=== PATIENT | female | born 1945 | race Caucasian/White ===

== ENCOUNTER 2017-01-14 16:21 | Emergency (ER) | payer BC ==
[~2017-01-14] VITALS: Ht 167.6 cm; Wt 99.8 kg
[~2017-01-14 16:21] MED LIST: CITA20TA9 PO; CLB200 PO; METO25TA56 PO; MULT-506 PO; PRLSR20 PO; SYN100 PO; TRIA3AER NAE
[2017-01-14 16:30] VITALS: Ht 167.6 cm; Wt 99.8 kg
[2017-01-14] MEDS ORDERED: BUPR75TA20 PO (16:34)
[2017-01-14] MEDS ORDERED: FLUT0.15 NAE (16:34)
[2017-01-14] MEDS ORDERED: OMEP20TA74 PO (16:34)
[2017-01-14] MEDS ORDERED: SYN100 PO (16:34)
[2017-01-14] MEDS ORDERED: CRS/10 PO (16:34)
[2017-01-14] MEDS ORDERED: CLB200 PO (16:34)
[2017-01-14] MEDS ORDERED: GABAPENTIN PO (16:36)
[2017-01-14] MEDS ORDERED: ACETAMINOPHEN 500 MG TAB PO STA (16:58)
[2017-01-14] MEDS ORDERED: ACETAMINOPHEN 500 MG TAB PO ONE (17:11)
--- NOTE | 2017-01-14 18:13 | DIAGNOSTIC IMAGING REPORT ---
RIGHT ELBOW MIN 3 VIEWS ROUTINE, RIGHT FOREARM 2 VIEWS ROUTINE CLINICAL HISTORY: fall, right elbow pain Right. Right forearm pain. COMPARISON STUDY: None. FINDINGS: Slightly impacted fracture within the right radial head/neck. There is an associated elbow effusion. The distal radius and ulna are intact. No dislocation. IMPRESSION: Slightly impacted fracture within the right radial head/neck. Electronically signed by: Monico Jiménez M.D. 01/14/2017 6:11 PM Dictated Date/Time: 01/14/2017 6:09 PM
--- NOTE | 2017-01-14 18:13 | DIAGNOSTIC IMAGING REPORT ---
LEFT FOREARM 2 VIEWS ROUTINE CLINICAL HISTORY: left forearm pain, fall COMPARISON: None FINDINGS: Lateral view demonstrates evidence of a left elbow joint effusion. There is cortical irregularity of the left radial neck suggestive of a nondisplaced fracture. IMPRESSION: Acute nondisplaced left radial neck fracture and a left elbow joint effusion. Electronically signed by: Mookie Brandt M.D. 01/14/2017 6:12 PM Dictated Date/Time: 01/14/2017 6:10 PM
--- NOTE | 2017-01-14 18:48 | DIAGNOSTIC IMAGING REPORT ---
HEAD CT NONCONTRAST CT DOSE: HISTORY: fall, head/facial injury TECHNIQUE: Multiaxial CT images of the head were performed without the use of intravenous contrast. Automated exposure control was utilized for this study. A dose lowering technique was utilized adhering to the principles of ALARA. Comparison: None. Findings: The paranasal sinuses and mastoid air cells are clear. The calvarium and skull base are intact. The ventricles and sulci are within normal limits. There is no mass, hematoma, midline shift, or acute infarct. 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 Impression: No acute intracranial abnormality. Electronically signed by: Monico Jiménez M.D. 01/14/2017 6:47 PM Dictated Date/Time: 01/14/2017 6:42 PM
--- NOTE | 2017-01-14 18:52 | DIAGNOSTIC IMAGING REPORT ---
MAXILLOFACIAL CT WITHOUT CONTRAST CLINICAL HISTORY: fall, head/facial injury COMPARISON STUDY: None. TECHNIQUE: A maxillofacial CT was performed without IV contrast. Coronal and sagittal reformats were viewed. A dose lowering technique was utilized adhering to the principles of ALARA. FINDINGS: This exam is mildly compromised by motion artifact. There is suspected nasal soft tissue swelling. Sensitivity for detection of fractures is diminished given motion artifact. There is a probable nondisplaced left nasal bone fracture with possible nondisplaced fractures of the right nasal bone and nasal septum. Orbital floors are intact. Globes are intact. There is no retrobulbar hematoma. Alignment of the temporomandibular joints is anatomic. IMPRESSION: Probable acute nondisplaced bilateral nasal bone fractures and possible nondisplaced fracture of the nasal septum. Study mildly compromised by motion artifact. No additional facial fractures. Electronically signed by: Mookie Brandt M.D. 01/14/2017 6:50 PM Dictated Date/Time: 01/14/2017 6:42 PM
--- NOTE | 2017-01-14 19:38 | EMERGENCY ROOM VISIT NOTE ---
History First contact with patient: 16:33 Chief Complaint: FALL Stated Complaint: FALL/WRIST PAIN History of Present Illness The patient is a 71 year old female who presents to the Emergency Room with complaints of a fall which occurred just prior to arrival. The patient states that she tripped while wearing flip-flops and fell forward. She hit her nose and caught herself with her arms. She reports pain in both of her wrists/ forearms. She had a nose bleed initially but this has resolved. She rates her discomfort a 6/10. There was no loss of consciousness. She denies nausea/ vomiting. The fall was mechanical in nature and she denies any associated dizziness or lightheadedness. Review of Systems A complete 10 point review of systems was reviewed with the patient with pertinent positives and negatives as per history of present illness. All else were negative. Social History Smoking Status: Former Smoker Current/Historical Medications Scheduled Bupropion (Wellbutrin), 75 MG PO BID Celecoxib (Celebrex), 200 MG PO QAM Citalopram Hydrobromide (Celexa), 20 MG PO DAILY Fluticasone Propionate (Nasal) (Flonase Allergy Relief), 2 SPRAY [place] DAILY Levothyroxine Sodium (Synthroid), 100 MCG PO QAM Multivitamin (Multivitamin), 1 TAB PO DAILY Omeprazole (Ra Omeprazole), 20 MG PO QAM Rosuvastatin Calcium (Crestor), 10 MG PO 3XWK [Gabapentin], 1 CAP PO HS Physical Exam Vital Signs Date Time Temp Pulse Resp B/P (MAP) Pulse Ox O2 Delivery O2 Flow Rate FiO2 01/14/17 19:51 37.0 77 18 131/68 96 01/14/17 19:49 77 18 131/68 96 Room Air 01/14/17 16:30 37.0 77 18 96 Room Air Physical Exam VITALS: Vitals are noted on the nurse's note and reviewed by myself. Vital signs stable. GENERAL: This is a 71-year-old female, in no acute distress, nondiaphoretic, well-developed well-nourished. SKIN: There is a small abrasion to the bridge of the nose. HEAD: Normocephalic atraumatic. EARS: External auditory canals clear, tympanic membranes pearly dickinson without erythema or effusion bilaterally. No hemotympanum. EYES: Pupils equal round and reactive to light and accommodation. Conjunctivae without injection, sclerae without icterus. Extraocular movements intact. NOSE: No bleeding from the nares. MOUTH: Mucous membranes moist. No loose or chipped teeth. NECK: Supple without nuchal rigidity. Cervical spine is nontender. HEART: Regular rate and rhythm without murmurs gallops or rubs. LUNGS: Clear to auscultation bilaterally without wheezes, rales or rhonchi. MUSCULOSKELETAL: There is tenderness of bilateral forearms, right greater than left. Full range of motion of bilateral upper extremities. Radial pulses 2+. No obvious deformities. NEURO: Patient was alert and oriented to person place and time. Normal sensation to light and sharp touch. No focal neurological deficits. Medical Decision & Procedures ER Provider Diagnostic Interpretation: HEAD CT NONCONTRAST Impression: No acute intracranial abnormality. MAXILLOFACIAL CT WITHOUT CONTRAST IMPRESSION: Probable acute nondisplaced bilateral nasal bone fractures and possible nondisplaced fracture of the nasal septum. Study mildly compromised by motion artifact. No additional facial fractures. LEFT FOREARM 2 VIEWS ROUTINE IMPRESSION: Acute nondisplaced left radial neck fracture and a left elbow joint effusion. RIGHT ELBOW MIN 3 VIEWS ROUTINE, RIGHT FOREARM 2 VIEWS ROUTINE IMPRESSION: Slightly impacted fracture within the right radial head/neck. Medications Administered Medications (Trade) Dose Ordered Sig/Ever Route Start Time Stop Time Status Last Admin Dose Admin Acetaminophen (Tylenol Tab) 1,000 mg NOW STAT PO 01/14/17 16:58 01/14/17 17:01 DC 01/14/17 17:14 1,000 MG ED Course The patient was evaluated as above. Patient was medicated with 1 g Tylenol. Imaging studies were performed and read by radiology as above. Patient was reevaluated and findings were discussed. The patient prefers to be discharged home. Discharge instructions were reviewed with the patient. The patient verbalized understanding of my assessment and treatment plan and was discharged home in good condition. Medical Decision Differential diagnosis includes head injury, fracture, contusion, dislocation, among others. The patient was evaluated as above. She sustained a mechanical fall. CT of the head was unremarkable. CT of the facial bones showed probable nasal bone fractures. Patient was instructed to follow-up with plastic surgery as desired. X-rays showed bilateral radial head/neck fractures. Options of care were discussed with the patient including discharged home in bilateral slings or admission for placement in a rehabilitation facility. The patient much prefers to be discharged home and states that her daughter can help her perform ADLs. She has tramadol at home and declined anything stronger for pain. She was referred to orthopedics for follow-up. She verbalized understanding of my assessment and treatment plan and was discharged home in good condition. The patient was independently evaluated by Dr. Ely, ED attending physician , who agreed with my assessment and treatment plan. Head Trauma GCS Score: 15 Medication Reconcilliation Current Medication List: was personally reviewed by me Blood Pressure Screening Patient's blood pressure: Elevated blood pressure Blood pressure disposition: Elevated BP felt to be situational Impression Primary Impression: Radial head fracture Additional Impressions: Nasal bone fracture Fall Departure Information Dispostion Home / Self-Care Condition GOOD Referrals Kamron Arciniega D.O. (PCP) Edi Holland M.D. Patient Instructions My [facility] Additional Instructions You have been treated in the Emergency Department for fractures of both radial heads. Tramadol as needed for pain. For pain control, you can use the following [id number] medicines (if >12 yo): - Regular strength (325mg/tab) Tylenol (acetaminophen) 2 tabs every 4-6 hours as needed. Do not exceed 12 tablets in a 24 hour period. Avoid taking more than 4 grams (4000 mg) of Tylenol per day. This includes any other sources of acetaminophen you may take on a regular basis. If this is a recent injury (<24 hrs), ice can be applied to the area of pain for the first 3 days to help decrease pain and inflammation. You have been provided the number for an Orthopaedic Surgeon. You should call this number as soon as possible to establish a follow-up visit from today's Emergency Department visit. Wear the sling at home as needed for pain. You may remove these as needed to shower, go to the bathroom, etc. If you notice any deformity of the nose, he may follow up with plastic surgery as desired. Return to the Emergency Department if your current symptoms worsen despite treatment course outlined above, or if you develop any of the following symptoms : intractable pain despite aforementioned treatment course or new onset of numbness or tingling of the arm. Problem Qualifiers Primary Impression: Radial head fracture Encounter type: initial encounter Fracture type: closed Fracture alignment : nondisplaced Additional Impressions: Nasal bone fracture Encounter type: initial encounter Fracture type: closed Qualified Codes: S02.2XXA - Fracture of nasal bones, initial encounter for closed fracture Fall Encounter type: initial encounter Qualified Codes: W19.XXXA - Unspecified fall, initial encounter
[2017-01-14 19:51] VITALS: BP 131/68; PULSE 77; TEMP 37; O2SAT 96
--- NOTE | 2017-01-14 20:13 | EMERGENCY ROOM VISIT NOTE ---
ED Visit Note First contact with patient: 16:33 I have seen and examined the patient. Discussed results and plan with the pt and family and they are agreeable. Pt well appearing here despite injuries.
== END 2017-01-14 19:51 | disposition home or self-care (01) ==
LOC: EDBD 16:21 → C.EDB 16:22
DX: S52.125A Nondisplaced fracture of head of left radius, initial encounter for closed fracture (principal); S52.121A Displaced fracture of head of right radius, initial encounter for closed fracture; S02.2XXA Fracture of nasal bones, initial encounter for closed fracture; W18.09XA Striking against other object with subsequent fall, initial encounter; Z87.891 Personal history of nicotine dependence; Z79.899 Other long term (current) drug therapy

== ENCOUNTER → 2017-06-11 | Outpatient (CLI) | payer BC ==
[~2017-06-11] MED LIST changes: +BUPR75TA20 PO; +CRS/10 PO; +FLUT0.15 NAE; +GABAPENTIN PO; -METO25TA56 PO; +OMEP20TA74 PO; -PRLSR20 PO; -TRIA3AER NAE
== END | disposition home or self-care (01) ==
LOC: C.PATHSPEC 17:42
PROVIDERS: ATTEND Plastic Surgery
DX: L72.2 Steatocystoma multiplex (principal)

== ENCOUNTER 2021-08-19 19:01 | Inpatient (IN) ==
[2021-08-19] MEDS ORDERED: cefTRIAXone SODIUM 2,000 MG/70 ML BAG IV STA (19:18)
--- NOTE | 2021-08-19 19:21 | Emergency Department Note ---
Impression & Plan Weakness, Fever, Acute dehydration, Acute UTI, Failure of outpatient treatment ED Provider Note NAME: HERON PERRY AGE: 76 SEX: F : 1945 ARRIVES VIA: Ambulance INFORMANT: [Patient] ED PROVIDER(S): [Kirit Bee MD] CHIEF COMPLAINT: Urinary symptoms, fever HISTORY OF PRESENT ILLNESS: The patient is a 76-year-old female with head and neck cancer. She was at [facility] recently for chemotherapy and radiation. Last chemo was about a month ago. She arrived back in this area and is currently at [facility]. On , 3 days ago, the patient began noticing some chills and aches. She felt flulike. Urine test was done and her culture has grown E. coli--sensitivities have not returned. She has had 2 days of Levaquin. Despite the antibiotics, she feels the same and is still running a temperature. There has been no cough or chest pain or shortness of breath. No abdominal pain. She has not had a rash. The patient was sent here for the possibility of sepsis. REVIEW OF SYSTEMS: See HPI for pertinent positives and negatives. A total of ten systems were reviewed and were otherwise negative. PMHx/PSHx: See Below SOCIAL HISTORY: See Below. PHYSICAL EXAM: GENERAL: Patient is in no acute distress. HEENT: No acute trauma, normocephalic atraumatic, mucous membranes moist, no nasal congestion, no scleral icterus. NECK: No stridor, no adenopathy, no meningismus, trachea is midline. LUNGS: Clear to auscultation bilaterally, no wheeze, no rhonchi, breath sounds equal. HEART: Without murmurs gallops or rubs, regular rate and rhythm. ABDOMEN: Soft, nontender, bowel sounds positive, no hernias, no peritonitis. There is a feeding tube in the left upper quadrant. EXTREMITIES: No cyanosis, mild bilateral pedal edema, full range of motion of all the joints without pain or difficulty, no signs for acute trauma. NEUROLOGIC: Oriented x 3, no acute motor or sensory deficits, no focal weakness. SKIN: No rash, no jaundice, no diaphoresis. DIFFERENTIAL DIAGNOSIS: Sepsis, UTI, pneumonia, metabolic abnormality, electrolyte abnormalities, cardiac sources, cellulitis, bacteremia, intracerebral event, toxicologic etiology, neurologic event, as well as other pathologies. EMERGENCY DEPARTMENT COURSE/PROCEDURES: ECG: Indication was possible sepsis. The ECG shows a normal sinus rhythm with a rate of 93. There is no ST elevation, no PVCs. The QTc is 420. Continuous Cardiac Monitoring: An order was placed for continuous cardiac monitoring. The monitor shows a rate of 88 with normal sinus rhythm. Critical Care Note: I have personally spent 43 minutes of critical care time in the direct management of this patient. This includes bedside care, interpretation of diagnostic studies, and testing, discussion with consultants, patient, and family members, and other required patient management activities. This 43 minutes is in excess of all separately billable procedures. MEDICAL DECISION MAKING: There is no leukocytosis. The patient is somewhat anemic, this may be from her recent chemotherapy. There is a platelet count elevation at 600. No coagulopathy. No renal failure or significant electrolyte abnormality. Lactic acid level is not elevated making severe sepsis less likely. ECG shows a normal sinus rhythm, no ischemia. Cardiac enzyme testing x1 is not consistent with acute cardiac injury. Procalcitonin level is not elevated. Urinalysis appears clean. Influenza and Covid testing is negative. Chest x-ray does not show pneumonia or CHF. I was able to review the patient's recent laboratory tests, her urine culture has grown E. coli without sensitivities available. The patient has a history of head and neck cancer. She was recently discharged from [place] after chemo and radiation. She now has fever, flulike symptoms and has E. coli growing on her urine. She has had 2 days of Levaquin with no improvement. The patient received IV saline for hydration. She was given oral oxycodone for pain. She received IV ceftriaxone as antibiotic coverage. Patient has done poorly as an outpatient. I think she is failing outpatient management. I am concerned about a pyelonephritis as the cause for her fever and complaints. The patient is being hospitalized, I spoke with the patient and her daughter, I spoke with the pillowcase maker. The on-call hospitalist was consulted. Past Med/Surg History Medical History Carcinoma Radial head fracture Surgical History History of appendectomy History of section History of cholecystectomy History of spinal fusion L4-5 History of tonsillectomy Family History (Updated 11/12/21 @ 13:57 by Carina Mg) Mother Hearing loss Allergies Asthma Father Stroke Heart disease Grandmother (Maternal) Allergies Asthma Daughter Allergies Asthma Other No family history of adverse response to anesthesia No family history of bleeding disorder Social History Smoking Status: Never smoker Years Smoked: 15; Cigarettes Per Day: 1-2; Hx Alcohol Use: No Hx Substance Use: No Preferred Language: Panamanian marital status: Single current occupational status: retired Feels Safe at Home: Yes Allergies Allergies Allergy/AdvReac Type Severity Reaction Status Date / Time morphine Allergy Mild Verified 08/19/21 21:20 Iodinated Contrast Media Allergy Unknown CONTRAST Verified 08/19/21 21:20 ALLERGY Penicillins Allergy Unknown Verified 08/19/21 21:20 shellfish derived Allergy Unknown DIGESTIVE Unverified 08/19/21 21:20 ISSUES Sulfa (Sulfonamide Allergy Unknown Verified 08/19/21 21:20 Antibiotics) NSAIDS (Non-Steroidal AdvReac Unknown Could lead Unverified 08/19/21 21:21 Anti-Inflamma to bleeding with past surgical history STEROIDS Allergy Unknown PVC'S Uncoded 08/19/21 21:20 Home Meds Home Medications Medication Instructions Recorded Confirmed bupropion HCl 100 mg tablet,12 hr 100 mg PO QAM 04/06/21 08/19/21 sustained-release (Wellbutrin SR) gabapentin 100 mg capsule 100 mg PO QAM 04/06/21 08/19/21 (Neurontin) levothyroxine 100 mcg tablet 100 mcg PO QAM 04/06/21 08/19/21 (Synthroid) omeprazole 20 mg capsule,delayed 20 mg PO PM 04/06/21 08/19/21 release rosuvastatin 5 mg tablet (Crestor) 5 mg PO 3XWK 04/06/21 08/19/21 acetaminophen 500 mg tablet 500 mg PO Q6H PRN 08/19/21 08/19/21 (Tylenol Extra Strength) cholecalciferol (vitamin D3) 50 50 mcg PO QAM 08/19/21 08/19/21 mcg (2,000 unit) tablet (Vitamin D3) fluticasone propionate 50 2 spray INTRANASAL QAM 08/19/21 08/19/21 mcg/actuation nasal spray,suspension oxycodone 5 mg tablet 5 mg PO DIRECTED PRN 08/19/21 08/19/21 Results & Data (ED) Vital Signs Vital Signs - 24 hr 08/19/21 19:17 Temperature 36.7 C Temperature Source Oral Pulse Rate 87 Respiratory Rate 16 Respiratory Effort / Characteristics Non-Labored Spontaneous Respiratory Depth Normal Respiratory Pattern Regular Blood Pressure 111/73 Blood Pressure Mean 85 Blood Pressure Position Semi-fowlers Pulse Oximetry 98 Oxygen Delivery Method Room Air Sepsis Recent Fever Within 48 Hours Yes Sepsis New/Unexplained Change in Mental Status N/A Sepsis Action Taken by Nursing No Action Required Home Medications Current Medication List: was personally reviewed by me Laboratory Data Attestation: I reviewed the patient's lab results. Result diagrams: 08/19/21 19:24 08/19/21 19:24 Lab Results 08/19/21 08/19/21 08/19/21 Range/Units 19:19 19:24 19:24 WBC 8.68 (4.8-10.8) K/uL RBC 3.37 L (4.2-5.4) M/uL Hgb 10.4 L (12.0-16.0) g/dL Hct 33.6 L (37-47) % MCV 99.7 (80-100) fL MCH 30.9 (25-34) pg MCHC 31.0 L (32-36) g/dL RDW Std Deviation 65.7 H (36.4-46.3) fL RDW Coeff of Geri 18.4 H (11.5-14.5) % Plt Count 606 H (130-400) K/uL MPV 9.2 (7.4-10.4) fL Immature Gran % (Auto) 2.3 % Neut % (Auto) 78.1 % Lymph % (Auto) 12.4 % [place] % (Auto) 4.5 % Eos % (Auto) 1.8 % Baso % (Auto) 0.9 % Neut # (Auto) 6.77 H (1.4-6.5) K/uL Lymph # (Auto) 1.08 L (1.2-3.4) K/uL [place] # (Auto) 0.39 (0.11-0.59) K/uL Eos # (Auto) 0.16 (0-0.5) K/uL Baso # (Auto) 0.08 (0-0.2) K/uL Immature Gran # (Auto) 0.20 H (0.00-0.02) K/uL PT 10.2 (9.0-12.0) Seconds INR 1.0 (0.9-1.1) APTT 23.7 (21.0-31.0) Seconds PTT Ratio 0.9 Sodium (136-145) mmol/L Potassium (3.5-5.1) mmol/L Chloride (98-107) mmol/L Carbon Dioxide (21-32) mmol/L Anion Gap (3-11) BUN (6-23) mg/dl Creatinine (0.6-1.2) mg/dl Est Cr Clr Drug Dosing Est GFR ( Amer) ml/min Est GFR (Non-Af Amer) ml/min BUN/Creatinine Ratio (10-20) Glucose (70-99(Fasting)) mg/dl POC Glucose 92 (70-99) mg/dl Lactate (0.4-2.0) mmol/L Calcium (8.5-10.1) mg/dl Magnesium (1.7-2.4) mg/dl Total Bilirubin (0.2-1.0) mg/dl AST (13-39) U/L ALT (7-52) U/L Alkaline Phosphatase (34-104) U/L Troponin I (0-0.04) ng/ml Total Protein (6.0-8.3) gm/dl Albumin (3.4-5.0) gm/dl Globulin (2.5-4.0) gm/dl Albumin/Globulin Ratio (0.9-2) Procalcitonin (0-0.5) ng/ml Urine Color Urine Appearance (Clear) Urine pH (4.5-7.5) Ur Specific [place] (1.000-1.030) Urine Protein (Negative) Urine Glucose (UA) (Negative) Urine Ketones (Negative) Urine Blood (Negative) Urine Nitrite (Negative) Urine Bilirubin (Negative) Urine Urobilinogen (Negative) Ur Leukocyte Esterase (Negative) Influ A Molecular Assay (Negative) Influ B Molecular Assay (Negative) SARS-CoV-2, RNA, NAAT (NEGATIVE) 08/19/21 08/19/21 08/19/21 Range/Units 19:24 19:24 19:24 WBC (4.8-10.8) K/uL RBC (4.2-5.4) M/uL Hgb (12.0-16.0) g/dL Hct (37-47) % MCV (80-100) fL MCH (25-34) pg MCHC (32-36) g/dL RDW Std Deviation (36.4-46.3) fL RDW Coeff of Geri (11.5-14.5) % Plt Count (130-400) K/uL MPV (7.4-10.4) fL Immature Gran % (Auto) % Neut % (Auto) % Lymph % (Auto) % [place] % (Auto) % Eos % (Auto) % Baso % (Auto) % Neut # (Auto) (1.4-6.5) K/uL Lymph # (Auto) (1.2-3.4) K/uL [place] # (Auto) (0.11-0.59) K/uL Eos # (Auto) (0-0.5) K/uL Baso # (Auto) (0-0.2) K/uL Immature Gran # (Auto) (0.00-0.02) K/uL PT (9.0-12.0) Seconds INR (0.9-1.1) APTT (21.0-31.0) Seconds PTT Ratio Sodium 137 (136-145) mmol/L Potassium 4.5 D (3.5-5.1) mmol/L Chloride 103 (98-107) mmol/L Carbon Dioxide 25 (21-32) mmol/L Anion Gap 9 (3-11) BUN 28 H (6-23) mg/dl Creatinine 0.50 L (0.6-1.2) mg/dl Est Cr Clr Drug Dosing Not Reportable Est GFR ( Amer) 108.2 ml/min Est GFR (Non-Af Amer) 93.4 ml/min BUN/Creatinine Ratio 56.0 H (10-20) Glucose 95 (70-99(Fasting)) mg/dl POC Glucose (70-99) mg/dl Lactate 1.3 (0.4-2.0) mmol/L Calcium 9.2 (8.5-10.1) mg/dl Magnesium 1.8 (1.7-2.4) mg/dl Total Bilirubin 0.2 (0.2-1.0) mg/dl AST 14 (13-39) U/L ALT 12 (7-52) U/L Alkaline Phosphatase 80 (34-104) U/L Troponin I < 0.03 (0-0.04) ng/ml Total Protein 7.0 (6.0-8.3) gm/dl Albumin 3.5 (3.4-5.0) gm/dl Globulin 3.5 (2.5-4.0) gm/dl Albumin/Globulin Ratio 1.0 (0.9-2) Procalcitonin < 0.05 (0-0.5) ng/ml Urine Color Urine Appearance (Clear) Urine pH (4.5-7.5) Ur Specific [place] (1.000-1.030) Urine Protein (Negative) Urine Glucose (UA) (Negative) Urine Ketones (Negative) Urine Blood (Negative) Urine Nitrite (Negative) Urine Bilirubin (Negative) Urine Urobilinogen (Negative) Ur Leukocyte Esterase (Negative) Influ A Molecular Assay (Negative) Influ B Molecular Assay (Negative) SARS-CoV-2, RNA, NAAT (NEGATIVE) 08/19/21 08/19/21 08/19/21 Range/Units 20:21 20:21 20:21 WBC (4.8-10.8) K/uL RBC (4.2-5.4) M/uL Hgb (12.0-16.0) g/dL Hct (37-47) % MCV (80-100) fL MCH (25-34) pg MCHC (32-36) g/dL RDW Std Deviation (36.4-46.3) fL RDW Coeff of Geri (11.5-14.5) % Plt Count (130-400) K/uL MPV (7.4-10.4) fL Immature Gran % (Auto) % Neut % (Auto) % Lymph % (Auto) % [place] % (Auto) % Eos % (Auto) % Baso % (Auto) % Neut # (Auto) (1.4-6.5) K/uL Lymph # (Auto) (1.2-3.4) K/uL [place] # (Auto) (0.11-0.59) K/uL Eos # (Auto) (0-0.5) K/uL Baso # (Auto) (0-0.2) K/uL Immature Gran # (Auto) (0.00-0.02) K/uL PT (9.0-12.0) Seconds INR (0.9-1.1) APTT (21.0-31.0) Seconds PTT Ratio Sodium (136-145) mmol/L Potassium (3.5-5.1) mmol/L Chloride (98-107) mmol/L Carbon Dioxide (21-32) mmol/L Anion Gap (3-11) BUN (6-23) mg/dl Creatinine (0.6-1.2) mg/dl Est Cr Clr Drug Dosing Est GFR ( Amer) ml/min Est GFR (Non-Af Amer) ml/min BUN/Creatinine Ratio (10-20) Glucose (70-99(Fasting)) mg/dl POC Glucose (70-99) mg/dl Lactate (0.4-2.0) mmol/L Calcium (8.5-10.1) mg/dl Magnesium (1.7-2.4) mg/dl Total Bilirubin (0.2-1.0) mg/dl AST (13-39) U/L ALT (7-52) U/L Alkaline Phosphatase (34-104) U/L Troponin I (0-0.04) ng/ml Total Protein (6.0-8.3) gm/dl Albumin (3.4-5.0) gm/dl Globulin (2.5-4.0) gm/dl Albumin/Globulin Ratio (0.9-2) Procalcitonin (0-0.5) ng/ml Urine Color Yellow Urine Appearance Clear (Clear) Urine pH 8.5 H (4.5-7.5) Ur Specific [place] 1.024 (1.000-1.030) Urine Protein Negative (Negative) Urine Glucose (UA) Negative (Negative) Urine Ketones Negative (Negative) Urine Blood Negative (Negative) Urine Nitrite Negative (Negative) Urine Bilirubin Negative (Negative) Urine Urobilinogen Negative (Negative) Ur Leukocyte Esterase Negative (Negative) Influ A Molecular Assay Negative (Negative) Influ B Molecular Assay Negative (Negative) SARS-CoV-2, RNA, NAAT NEGATIVE (NEGATIVE) Administered Medications Discontinued Medications Sodium Chloride (Nss 1000ml) 1,000 mls @ 999 mls/hr IV .[id number] Stop: 08/19/21 20:30 Last Infusion: 08/19/21 20:44 Dose: 0 mls/hr Documented by: [id number] Admin: 08/19/21 19:43 Dose: 999 mls/hr Documented by: [id number] Ceftriaxone Sodium (Rocephin) 2,000 mg in 70 mls @ 140 mls/hr IV NOW STA Stop: 08/19/21 19:47 Last Infusion: 08/19/21 20:13 Dose: 0 mls/hr Documented by: [id number] Admin: 08/19/21 19:43 Dose: 140 mls/hr Documented by: [id number] Oxycodone HCl (Oxycodone Hcl Ir 5 Mg Tab (Immediate Release)) 5 mg PO NOW STA Stop: 08/19/21 21:05 Last Admin: 08/19/21 21:22 Dose: 5 mg Documented by: [id number] Imaging Data Radiologist's Impression: Chest X-Ray 08/19/21 19:17 XR chest 1V portable CLINICAL HISTORY: SEPSIS TECHNIQUE: Single frontal radiograph of the chest was obtained. Comparison: None available at the time of this dictation. FINDINGS: Surgical clips are seen in the left lateral chest. A calcific densities in the left lower lung. The cardiomediastinal silhouette is normal. The lungs are clear. No evidence of pleural effusion or pneumothorax. IMPRESSION: No acute chest disease. ACT 112: Negative or not required by law. Electronically signed by: Asaf Maloney M.D. 08/19/2021 8:15 PM Discharge Plan Visit Data Chief Complaint: Urinary Symptoms Stated Complaint: Urinary Symptoms ED Provider: Kirit Bee Discharge Problem: Weakness, Fever, Acute dehydration, Acute UTI, Failure of outpatient treatment Patient Disposition: Admitted As Inpatient Condition: Fair Forms Stand Alone Forms: [employer] Prescriptions Prescriptions: No Action levothyroxine [Synthroid] 100 mcg tablet 100 mcg PO QAM RF: 0 omeprazole 20 mg capsule,delayed release(DR/EC) 20 mg PO PM RF: 0 gabapentin [Neurontin] 100 mg capsule 100 mg PO QAM RF: 0 rosuvastatin [Crestor] 5 mg tablet 5 mg PO 3XWK RF: 0 bupropion HCl [Wellbutrin SR] 100 mg tablet sustained-release 12 hr 100 mg PO QAM RF: 0 acetaminophen [Tylenol Extra Strength] 500 mg Tablet 500 mg PO Q6H PRN (Reason: Pain) RF: 0 oxycodone 5 mg tablet 5 mg PO DIRECTED PRN (Reason: Pain) RF: 0 cholecalciferol (vitamin D3) [Vitamin D3] 50 mcg (2,000 unit) Tablet 50 mcg PO QAM RF: 0 fluticasone propionate [Flonase] 50 mcg/actuation [place],Suspension 2 spray INTRANASAL QAM RF: 0 Referrals Referrals: Jonas Kan [Primary Care Provider] -
[2021-08-19] MEDS ORDERED: SODIUM CHLORIDE 0.9% 1000ML 1,000 ML IV SCH (19:30)
[2021-08-19 19:33] LABS: Basophils # (auto) 0.08 K/uL (0-0.2); Basophils % (auto) 0.9 %; Eosinophils # (auto) 0.16 K/uL (0-0.5); Eosinophils % (auto) 1.8 %; Hematocrit (blood only) 33.6 % (37-47); Hemoglobin 10.4 g/dL (12.0-16.0); Immature Granulocytes % (auto) 2.3 %; Lymphocytes # (auto) 1.08 K/uL (1.2-3.4); Lymphocytes % (auto) 12.4 %; Mean Corpuscular Hemoglobin 30.9 pg (25-34); Mean Corpuscular Volume 99.7 fL (80-100); Mean Platelet Volume 9.2 fL (7.4-10.4); Monocytes # (auto) 0.39 K/uL (0.11-0.59); Monocytes % (auto) 4.5 %; Neutrophils # (auto) 6.77 K/uL (1.4-6.5); Neutrophils % (auto) 78.1 %; Platelet Count 606 K/uL (130-400); RDW Coefficient of Variation 18.4 % (11.5-14.5); RDW Standard Deviation 65.7 fL (36.4-46.3); Red Blood Count 3.37 M/uL (4.2-5.4); White Blood Count 8.68 K/uL (4.8-10.8)
[2021-08-19 19:49] LABS: Partial Thromboplastin Ratio 0.9; Partial Thromboplastin Time 23.7 Seconds (21.0-31.0); Prothrombin Time 10.2 Seconds (9.0-12.0)
[2021-08-19 20:04] LABS: Alanine Aminotransferase 12 U/L (7-52); Albumin Level 3.5 gm/dl (3.4-5.0); Alkaline Phosphatase 80 U/L (34-104); Anion Gap 9 (3-11); Aspartate Aminotransferase 14 U/L (13-39); Bilirubin,Total 0.2 mg/dl (0.2-1.0); Blood Urea Nitrogen 28 mg/dl (6-23); Calcium 9.2 mg/dl (8.5-10.1); Carbon Dioxide 25 mmol/L (21-32); Chloride 103 mmol/L (98-107); Est GFR (African American) 108.2 ml/min; Est GFR (Non-African American) 93.4 ml/min; Globulin 3.5 gm/dl (2.5-4.0); Glucose 95 mg/dl (70-99(Fasting)); Magnesium 1.8 mg/dl (1.7-2.4); Potassium 4.5 mmol/L (3.5-5.1); Sodium 137 mmol/L (136-145); Troponin I < 0.03 ng/ml (0-0.04)
--- NOTE | 2021-08-19 20:16 | XRay Report ---
XR chest 1V portable CLINICAL HISTORY: SEPSIS TECHNIQUE: Single frontal radiograph of the chest was obtained. Comparison: None available at the time of this dictation. FINDINGS: Surgical clips are seen in the left lateral chest. A calcific densities in the left lower lung. The c ardiomediastinal silhouette is normal. The lungs are clear. No evidence of pleural effusion or pneumo thorax. IMPRESSION: No acute chest disease. ACT 112: Negative or not required by law. Electronically signed by: Asaf Maloney M.D. 08/19/2021 8:15 PM
[2021-08-19 20:46] LABS: Influenza A virus by PCR Negative (Negative); Influenza B virus by PCR Negative (Negative)
[2021-08-19 20:55] LABS: Appearance Urine Clear (Clear); Bilirubin Urine Negative (Negative); Blood Urine Negative (Negative); Color Urine Yellow; Glucose Urine UA Negative (Negative); Ketones Urine Negative (Negative); Leukocyte Esterase Urine Negative (Negative); Nitrite Urine Negative (Negative); Protein Urine Negative (Negative); Specific Gravity Urine 1.024 (1.000-1.030); Urobilinogen Urine Negative (Negative); pH Urine 8.5 (4.5-7.5)
[2021-08-19] MEDS ORDERED: oxyCODONE HCL IR 5 MG TAB (IMMEDIATE RELEASE) PO STA ×2 (21:04→21:55)
--- NOTE | 2021-08-19 22:02 | History & Physical Report ---
Date of Service August 19, 2021 Assessment & Plan (1) Acute UTI: Plan: Acute UTI with improving urine and no leukocytosis or fevers but remaining with symptoms and left CVA tenderness - Ultrasound of bladder and kidneys evaluate for abscess - E.COLI awaiting sensitivities- change Levaquin to Rocephin secondary to age and fluoroquinolone- adjust based on sensitivities - Follow symptoms (2) Tongue cancer: Plan: S/P chemo and radiation therapy with prolonged stay - follows with [facility] [place] (3) Pain: Plan: Back pain primarily - Will add on lidocaine patch - tylenol - oxy 10mg p0 prn - Gabapentin- have room to increase - Consider adding narcotic patch if needed - Of note patient had delirium as well as drug induced parkinsonian side effects from [facility] [place] (4) On enteral nutrition: Plan: On Jevity 1.5 2 cans TID as supplementation to oral intake - her oral intake has been decreased over the past few days- may need supplementation - nutrition consulted appreciate assistance - free water may need to be added if po intake remains low- currently 60ml tid and with meds (5) Weakness: Plan: Continue with PT/OT (6) HLD (hyperlipidemia): Plan: Continue with statin (7) Hypothyroidism: Plan: Continue Synthroid (8) Thrush, oral: Plan: Magic Mouthwash and continue with nystatin (9) GERD (gastroesophageal reflux disease): Plan: Continue omeprazole History of Present Illness Primary Care Provider: [facility] 76 YOF with past medical history of: 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 Patient comes to the EMD today for complaints of continued fatigue, back pain, fevers, chills in the setting of E.COLI UTI- awaiting sensitivities - started on Levaquin- received 1 dose. Patient is Resident of [facility]. Patient had routine labs sent to include PCT, UA, and blood cultures. Her urine is improved looking, and her PCT is <0.05, without objective fever- remains with symptoms and CVA tenderness of the left side. Patient will be observed for pyelo rule out- with ultrasound- and await sensitivities. The patient just returned from [facility] [place] where she was diagnosed with SCC of the tongue- underwent radiation and chemotherapy and dilation of her esophagus with PEG tube placement on 07/23. Radiation therapy was discontinued on 08/01 secondary to pain. Her oral intake remains low secondary to pain with swallowing and receives Jevity 1.5 - 2 cans TID bolus feeds. She is tolerating these without emesis but is associate with nausea and changes in her stools. She has some thrush and suffered from mucositis as well- symptoms improved with magic mouthwash and nystatin swish and spit. She is still having pain, but this worsened over the weekend prompting UA as above. Allergies Allergy/AdvReac Type Severity Reaction Status Date / Time morphine Allergy Mild Verified 08/19/21 21:20 Iodinated Contrast Media Allergy Unknown CONTRAST Verified 08/19/21 21:20 ALLERGY Penicillins Allergy Unknown Verified 08/19/21 21:20 shellfish derived Allergy Unknown DIGESTIVE Unverified 08/19/21 21:20 ISSUES Sulfa (Sulfonamide Allergy Unknown Verified 08/19/21 21:20 Antibiotics) NSAIDS (Non-Steroidal AdvReac Unknown Could lead Unverified 08/19/21 21:21 Anti-Inflamma to bleeding with past surgical history STEROIDS Allergy Unknown PVC'S Uncoded 08/19/21 21:20 Home Medications Medication Instructions Recorded Confirmed Type bupropion HCl 100 mg tablet,12 hr 100 mg PO QAM 04/06/21 08/19/21 History sustained-release (Wellbutrin SR) gabapentin 100 mg capsule 100 mg PO QAM 04/06/21 08/19/21 History (Neurontin) levothyroxine 100 mcg tablet 100 mcg PO QAM 04/06/21 08/19/21 History (Synthroid) omeprazole 20 mg capsule,delayed 20 mg PO PM 04/06/21 08/19/21 History release rosuvastatin 5 mg tablet (Crestor) 5 mg PO 3XWK 04/06/21 08/19/21 History acetaminophen 500 mg tablet 500 mg PO Q6H PRN 08/19/21 08/19/21 History (Tylenol Extra Strength) cholecalciferol (vitamin D3) 50 50 mcg PO QAM 08/19/21 08/19/21 History mcg (2,000 unit) tablet (Vitamin D3) fluticasone propionate 50 2 spray INTRANASAL QAM 08/19/21 08/19/21 History mcg/actuation nasal spray,suspension oxycodone 5 mg tablet 5 mg PO DIRECTED PRN 08/19/21 08/19/21 History Past Med/Surg History Medical History (Updated 08/19/21 @ 22:23 by YOSELIN Pérez) Back pain Breast cancer Carcinoma Dilation of esophagus Esophageal stricture HLD (hyperlipidemia) Hypothyroidism Hypothyroidism Radial head fracture Surgical History History of appendectomy History of section History of cholecystectomy History of spinal fusion L4-5 History of tonsillectomy Family History (Updated 04/06/21 @ 13:57 by Carina Mg) Mother Hearing loss Allergies Asthma Father Stroke Heart disease Grandmother (Maternal) Allergies Asthma Daughter Allergies Asthma Other No family history of adverse response to anesthesia No family history of bleeding disorder Social History Smoking Status: Never smoker Years Smoked: 15; Cigarettes Per Day: 1-2; Hx Alcohol Use: No Hx Substance Use: No Preferred Language: Vietnamese marital status: Single current occupational status: retired Feels Safe at Home: Yes Review of Systems Review of Systems: REVIEW OF SYSTEMS: Constitutional: (+) subjective fever, sweats or chills, fatigue Eyes: No diplopia, no worsening or blurred vision ENT: (+) thrush, pain with swallowing, normal hearing, Respiratory: No cough, sputum, dyspnea at rest or on exertion Cardiovascular: No chest pain, tightness or palpitations Abdomen: (+) nausea, vomiting, diarrhea or constipation Musculoskeletal: (+) back pain, calf pain, swelling Neurologic: No weakness, numbness/tingling, or balance problems Psychiatric: No anxiety or depression Skin: No rash or itch Physical Exam Physical Exam: PHYSICAL EXAM: General: awake, alert, no apparent distress Head: Normocephalic, atraumatic ENT: PERRLA, EOMI, no pharyngeal exudate, mucous membranes dry, thrush to tongue, no erythema Neuro: AAO x 3, speech clear and appropriate, strength intact bilaterally 5/5, sensation intact and equal all extremities and dermatomes, no pronator drift Chest: equal rise and fall of the chest, no accessory muscle use, no heaves or thrills, Clear to auscultation, on room air, Cardiac: Regular rate and rhythm, telemetry reviewed, skin warm dry, cap refill <3 seconds, peripheral pulses +2 no JVD, no murmur, no edema GI: NABS x 4 quadrants, soft, nontender to palpation, no rebound, guarding or tenderness, PEG tube in place with no surrounding excoriation : Spontaneously voiding, no pain, pain to left kidney with deep palpation MSK: Back pain from shoulder blades to sacrum that is burning type pain Psych: Normal mood and affect Skin: no rash or erythema Results & Data Results & Data ([facility]) Vital Signs (Past 12 Hours) Vital Signs Temp Pulse Resp BP BP Pulse Ox 08/19/21 21:00 20 109/77 91 08/19/21 19:17 36.7 C 87 16 111/73 98 Laboratory Results Abnormal lab results 08/19/21 08/19/21 08/19/21 Range/Units 19:24 19:24 20:21 RBC 3.37 L (4.2-5.4) M/uL Hgb 10.4 L (12.0-16.0) g/dL Hct 33.6 L (37-47) % MCHC 31.0 L (32-36) g/dL RDW Std Deviation 65.7 H (36.4-46.3) fL RDW Coeff of Geri 18.4 H (11.5-14.5) % Plt Count 606 H (130-400) K/uL Neut # (Auto) 6.77 H (1.4-6.5) K/uL Lymph # (Auto) 1.08 L (1.2-3.4) K/uL Immature Gran # (Auto) 0.20 H (0.00-0.02) K/uL BUN 28 H (6-23) mg/dl Creatinine 0.50 L (0.6-1.2) mg/dl BUN/Creatinine Ratio 56.0 H (10-20) Urine pH 8.5 H (4.5-7.5) Diagnostic Findings Chest X-Ray 08/19/21 19:17 XR chest 1V portable CLINICAL HISTORY: SEPSIS TECHNIQUE: Single frontal radiograph of the chest was obtained. Comparison: None available at the time of this dictation. FINDINGS: Surgical clips are seen in the left lateral chest. A calcific densities in the left lower lung. The cardiomediastinal silhouette is normal. The lungs are clear. No evidence of pleural effusion or pneumothorax. IMPRESSION: No acute chest disease. ACT 112: Negative or not required by law. Electronically signed by: Asaf Maloney M.D. 08/19/2021 8:15 PM Medications Administered Home Medications bupropion HCl 100 mg tablet,12 hr sustained-release (Wellbutrin SR) 100 mg PO QAM 04/06/21 [History Confirmed 08/19/21] gabapentin 100 mg capsule (Neurontin) 100 mg PO QAM 04/06/21 [History Confirmed 08/19/21] levothyroxine 100 mcg tablet (Synthroid) 100 mcg PO QAM 04/06/21 [History Confirmed 08/19/21] omeprazole 20 mg capsule,delayed release 20 mg PO PM 04/06/21 [History Confirmed 08/19/21] rosuvastatin 5 mg tablet (Crestor) 5 mg PO 3XWK 04/06/21 [History Confirmed 08/19/21] acetaminophen 500 mg tablet (Tylenol Extra Strength) 500 mg PO Q6H PRN 08/19/21 [History Confirmed 08/19/21] cholecalciferol (vitamin D3) 50 mcg (2,000 unit) tablet (Vitamin D3) 50 mcg PO QAM 08/19/21 [History Confirmed 08/19/21] fluticasone propionate 50 mcg/actuation nasal spray,suspension 2 spray INTRANASAL QAM 08/19/21 [History Confirmed 08/19/21] oxycodone 5 mg tablet 5 mg PO DIRECTED PRN 08/19/21 [History Confirmed 08/19/21] Discontinued Medications Sodium Chloride (Nss 1000ml) 1,000 mls @ 999 mls/hr IV .Q1H1M JOVANNI Stop: 08/19/21 20:30 Last Infusion: 08/19/21 20:44 Dose: 0 mls/hr Documented by: [id number] Admin: 08/19/21 19:43 Dose: 999 mls/hr Documented by: [id number] Ceftriaxone Sodium (Rocephin) 2,000 mg in 70 mls @ 140 mls/hr IV NOW STA Stop: 08/19/21 19:47 Last Infusion: 08/19/21 20:13 Dose: 0 mls/hr Documented by: [id number] Admin: 08/19/21 19:43 Dose: 140 mls/hr Documented by: [id number] Oxycodone HCl (Oxycodone Hcl Ir 5 Mg Tab (Immediate Release)) 5 mg PO NOW STA Stop: 08/19/21 21:05 Last Admin: 08/19/21 21:22 Dose: 5 mg Documented by: [id number] ECG Additional Comments: Normal sinus rhythm Normal ECG When compared with ECG of 04-JAN-2012 06:53, Premature ventricular complexes are no longer Present Code Status & VTE Plan Code Status CODE: DNR/DNI VTE: SCDs, Lovenox VTE Prophylaxis Plan VTE Prophylaxis will be ordered: Yes Supervising Physician Co-Signing Physician Notes Patient seen and examined, chart reviewed, case discussed with YOSELIN Salas and I agree with the assessment and plan as above. In brief, patient is a 76yo female with T4N2MO SCC of the right tongue base diagnosed in March 2021. She had a prolonged and complicated hospitalization at [facility] from 07/15/21 - 08/16/21 during which she underwent chemotherapy an XRT for her malignancy. Dysphagia s/p dilatation of esophageal stricture. had PEG tube placed 07/23. Her hospital course was complicated by acute hypoxic respiratory failure (unknown etiology), drug induced Parkinsonism and severe hospital acquired delirium. She presents today with complaints of fatigue, back pain, fever/chills. She was recently diagnosed with E. Coli UTI and was started on Levaquin. She has left sided CVA tenderness. On exam patient appears fatigued but nontoxic Skin - intact HEENT - MMM, neck supple, oral thrush ontongue Heart - +S1/S2, regular, no m/r/g Lungs - CTA Abd - PEG tube in place, left CVA tenderness as noted above - not retested by me Ext - no edema Labs and images reviewed. [id number] Assessment/Plan 76yo female with T4N2 SCC right tongue base s/p chemo and XRT, recent prolonged and complicated hospitalization at [facility] [place] in which patient had acute hypoxic respiratory failure, drug-induced extrapyramidal symptoms/Parkinsonism and delirium. Patient with e.colil UTI on Levaquin presenting with overall malaise, fever, left CVA tenderness -US bladder and kidneys to assess for pyelonephritis/abscess -Ceftriaxone -Tylenol, pain control -Remainder as above PG Care Time/CCT Total # of Minutes Spent Total Time Spent with Patient: Total time spent is greater than 50% in coordination of care (as documented) at patient's floor/unit and/or counseling patient: Coding Level of Care Code INT OBSERVATION CARE 70M LVL 3 Diagnoses Acute UTI N39.0 Tongue cancer C02.9 Pain R52 On enteral nutrition Z78.9 Weakness R53.1 HLD (hyperlipidemia) E78.5 Hypothyroidism E03.9 Thrush, oral B37.0 GERD (gastroesophageal reflux disease) K21.9
[2021-08-19] MEDS ORDERED: bisacodyL 10 MG SUPP PR PRN (23:15)
[2021-08-19] MEDS ORDERED: NALOXONE HCL 0.4 MG/1 ML VIAL/CARP IV PRN (23:15)
[2021-08-20] MEDS: LEVOTHYROXINE SODIUM 100 MCG TABLET PO SCH (05:27)
[2021-08-20] MEDS: oxyCODONE HCL IR 5 MG TAB (IMMEDIATE RELEASE) PO PRN ×3 (05:27→21:46)
[2021-08-20] MEDS: ONDANSETRON INJ 2 MG/ML 2 ML VIAL IV PRN ×2 (05:30→20:11)
[2021-08-20] MEDS ORDERED: TUBE FEEDING WATER FLUSH GT SCH (06:00)
[2021-08-20] MEDS: LIDOCAINE VISCOUS 2% 15 ML UDC MT PRN ×3 (06:24→21:48)
[2021-08-20] MEDS: LIDOCAINE 5% 1 PATCH TD SCH (07:07)
[2021-08-20 07:12] LABS: Basophils # (auto) 0.06 K/uL (0-0.2); Basophils % (auto) 0.7 %; Eosinophils # (auto) 0.23 K/uL (0-0.5); Eosinophils % (auto) 2.8 %; Hematocrit (blood only) 33.4 % (37-47); Hemoglobin 10.4 g/dL (12.0-16.0); Immature Granulocytes # (auto) 0.14 K/uL (0.00-0.02); Immature Granulocytes % (auto) 1.7 %; Lymphocytes # (auto) 1.23 K/uL (1.2-3.4); Lymphocytes % (auto) 15.2 %; Mean Corpuscular Hgb Conc 31.1 g/dL (32-36); Mean Corpuscular Volume 99.7 fL (80-100); Mean Platelet Volume 9.1 fL (7.4-10.4); Monocytes % (auto) 1.2 %; Neutrophils # (auto) 6.32 K/uL (1.4-6.5); Neutrophils % (auto) 78.4 %; Platelet Count 576 K/uL (130-400); RDW Coefficient of Variation 18.4 % (11.5-14.5); RDW Standard Deviation 66.6 fL (36.4-46.3); Red Blood Count 3.35 M/uL (4.2-5.4); White Blood Count 8.08 K/uL (4.8-10.8)
--- NOTE | 2021-08-20 07:16 | Ultrasound Report ---
US renal/blad retro comp HISTORY: 76 years-old Female UTI with peylo - eval for abscess acute bilateral flank pain COMPARISON: None TECHNIQUE: Multiple real-time sonographic images of the kidneys and urinary bladder were obtained ass essing grayscale appearance and color flow FINDINGS: The right kidney measures 11.1 x 4.7 x 5.5 cm. The left kidney measures 10.9 x 5.0 x 3.4 cm. No renal calculi, hydronephrosis or suspicious mass lesion. Cortical medullary differentiation is preserved b ilaterally. No renal abscess. Unremarkable urinary bladder. Bilateral ureteral jets are documented. IMPRESSION: Normal exam. ACT 112: Negative or not required by law. The above report was generated using voice recognition software. It may contain grammatical, syntax o r spelling errors. Electronically signed by: Crow Tripp M.D. 08/20/2021 7:14 AM
[2021-08-20 07:41] LABS: BUN Creatinine Ratio 48.9 (10-20); Calcium 9.2 mg/dl (8.5-10.1); Creatinine Clr Calc Pharmacy 110.5 ml/min; Est GFR (Non-African American) 96.7 ml/min; Magnesium 1.7 mg/dl (1.7-2.4)
[2021-08-20] MEDS: ACETAMINOPHEN 500 MG TAB PO PRN ×2 (07:47→22:44)
[2021-08-20] MEDS ORDERED: GABAPENTIN 100 MG CAP PO SCH ×2 (09:00→21:00)
[2021-08-20] MEDS ORDERED: buPROPion SR 100 MG TABCR PO SCH (09:00)
[2021-08-20] MEDS: ENOXAPARIN INJ 40 MG/0.4 ML SYR SQ SCH (09:12)
[2021-08-20] MEDS: FLUTICASONE PROPIONATE NA SPR 16 GM BTL NAE SCH (09:12)
[2021-08-20] MEDS: NYSTATIN SUSP 500,000 U/5 ML UDC PO SCH ×4 (09:12→21:48)
[2021-08-20] MEDS ORDERED: PEPTAMEN 1.5 CAL 1,000 ML BAG PEG SCH (11:30)
--- NOTE | 2021-08-20 12:18 | Electrocardiogram Report ---
Test Reason : Blood Pressure : / mmHG Vent. Rate : 093 BPM Atrial Rate : 093 BPM P-R Int : 132 ms QRS Dur : 080 ms QT Int : 338 ms P-R-T Axes : 033 037 040 degrees QTc Int : 420 ms Normal sinus rhythm Normal ECG When compared with ECG of 04-JAN-2012 06:53, Premature ventricular complexes are no longer Present Confirmed by Pasquale Colon ([id number]) on 08/20/2021 12:18:17 PM Referred By: REFERRED SELF Confirmed By:Pasquale Colon
[2021-08-20] MEDS: TUBE FEEDING WATER FLUSH GT SCH ×4 (12:37→22:49)
[2021-08-20] MEDS: FIRST - Mouthwash BLM 119 ML PO SCH ×3 (12:48→21:49)
[2021-08-20] MEDS: SENNA 8.6 MG TAB PO SCH (13:15)
[2021-08-20] MEDS ORDERED: Nursing to Pharmacy Communication SCH (13:30)
[2021-08-20] MEDS ORDERED: DULoxetine HCL 60 MG CAP PO ONE (14:30)
[2021-08-20] MEDS: buPROPion SR 100 MG TABCR PO SCH (16:42)
[2021-08-20] MEDS: DICLOFENAC SOD 1% GEL 100 GM TUBE EXT PRN (16:42)
--- NOTE | 2021-08-20 16:50 | Hospitalist Progress Note ---
Date of Service August 20, 2021 Assessment & Plan (1) Thoracic back pain: Plan: Patient is known to have fibromyalgia. Patient has been off her NSAIDs since she has had a PEG tube. Asking for cymbalta and gabapentin to be restarted. Ordered topical NSAID. order MRI of thoracic spine. Will discuss with pain management. Plan for discharge in next day or 2 depending on pain response and imaging. Patient will need to have tube feedings held for 1 hour priro to MRI of spine. Patient will also have OMT today. (2) Acute UTI: Plan: Acute UTI with improving urine and no leukocytosis or fevers but remaining with symptoms and left CVA tenderness - Ultrasound of bladder and kidneys evaluate for abscess - E.COLI awaiting sensitivities- change Levaquin to Rocephin secondary to age and fluoroquinolone- adjust based on sensitivities - Follow symptoms (3) Tongue cancer: Plan: S/P chemo and radiation therapy with prolonged stay - follows with [facility] (4) Pain: Plan: Back pain primarily - Will add on lidocaine patch - tylenol - oxy 10mg p0 prn - Gabapentin- have room to increase - Consider adding narcotic patch if needed - Of note patient had delirium as well as drug induced parkinsonian side effects from [facility] (5) On enteral nutrition: Plan: On Jevity 1.5 2 cans TID as supplementation to oral intake - her oral intake has been decreased over the past few days- may need supplementation - nutrition consulted appreciate assistance - free water may need to be added if po intake remains low- currently 60ml tid and with meds (6) Weakness: Plan: Continue with PT/OT (7) HLD (hyperlipidemia): Plan: Continue with statin (8) Hypothyroidism: Plan: Continue Synthroid (9) Thrush, oral: Plan: Magic Mouthwash and continue with nystatin (10) GERD (gastroesophageal reflux disease): Plan: Continue omeprazole Admission and Anticipated Discharge Date Admission Date: August 19, 2021 Subjective This is a pleasant 76 yo female who reports she has uppter back pain on her thoracic spine. She reports pain is midline and it radiates down. Review of Systems Review of Systems: All systems reviewed & are unremarkable except as noted in HPI & below Physical Exam Physical Exam: General: awake, alert, no apparent distress Head: Normocephalic, atraumatic ENT: PERRLA, EOMI, no pharyngeal exudate, mucous membranes dry, thrush to tongue, no erythema Neuro: AAO x 3, speech clear and appropriate Chest: equal rise and fall of the chest, no accessory muscle use, no heaves or thrills, Clear to auscultation, on room air, Cardiac: Regular rate and rhythm, telemetry reviewed, skin warm dry, cap refill <3 seconds, peripheral pulses +2 no JVD, no murmur, no edema GI: NABS x 4 quadrants, soft, nontender to palpation, no rebound, guarding or tenderness, PEG tube in place with no surrounding excoriation : Spontaneously voiding, no pain, pain to left kidney with deep palpation MSK: Back pain from shoulder blades to sacrum that is burning type pain Psych: Normal mood and affect Skin: no rash or erythema Results & Data Results & Data ([facility]) Vital Signs (Past 12 Hours) Vital Signs Temp Pulse Resp BP Pulse Ox 08/20/21 15:34 36.7 C 90 16 120/78 93 08/20/21 07:33 36.7 C 84 16 111/72 94 PG Care Time/CCT Total # of Minutes Spent Total Time Spent with Patient: Total time spent is greater than 50% in coordination of care (as documented) at patient's floor/unit and/or counseling patient: Coding Level of Care Code 61104 Subseq Hosp Care Lvl 3 Diagnoses Acute UTI N39.0 Tongue cancer C02.9 Pain R52 On enteral nutrition Z78.9 Weakness R53.1 HLD (hyperlipidemia) E78.5 Hypothyroidism E03.9 Thrush, oral B37.0 GERD (gastroesophageal reflux disease) K21.9 Thoracic back pain M54.6 Time Spent (min) 45
[2021-08-20] MEDS: cefTRIAXone SODIUM 2,000 MG in DEXTROSE 5% 50 ML IV SCH (17:41)
--- NOTE | 2021-08-20 17:44 | Hospitalist Progress Note ---
Date of Service August 20, 2021 Assessment & Plan (1) Somatic dysfunction of thoracic region: Plan: OMT as above, Voltalec gel in the same region. Admission and Anticipated Discharge Date Admission Date: August 20, 2021 Subjective Asked to see patient by primary hospitalist for biomechanical/muscular midthoracic pain. Patient notes that she has had midthoracic pain for years, sees a chiropractor periodically with good response, also notes that before her diagnosis of cancer, she did well with Celebrex. Describes the pain is predominantly midthoracic left-sided more than right, with a little bit of radiation around to the front. Longstanding history of fibromyalgia Physical Exam Musculoskeletal: MSK/osteopathic shows her to have left-sided greater than right paraspinal hypertonicity, decreased range of motion, tender. No bony tenderness in the same region, no skin changes or crepitus. Direct myofascial followed by LAStissue texture improved, patient tolerated well. Results & Data Results & Data ([facility]) Vital Signs (Past 12 Hours) Vital Signs Temp Pulse Resp BP Pulse Ox 08/20/21 15:34 98.1 F 90 16 120/78 93 08/20/21 07:33 98.1 F 84 16 111/72 94 PG Care Time/CCT Total # of Minutes Spent Total Time Spent with Patient: Total time spent is greater than 50% in coordination of care (as documented) at patient's floor/unit and/or counseling patient: Coding Level of Care Code None Diagnoses Somatic dysfunction of thoracic region M99.02 CPT Codes Musculoskeletal - Musculoskeletal: 75611 Osteo Aime Tr 1-2 Body regions ([id number])
[2021-08-20] MEDS: PEPTAMEN 1.5 CAL 1,000 ML BAG PEG SCH ×2 (18:22→22:45)
[2021-08-20] MEDS ORDERED: GABAPENTIN 100 MG CAP PO ONE (21:00)
[2021-08-20] MEDS: DICLOFENAC SOD 1% GEL 100 GM TUBE EXT SCH (21:49)
[2021-08-20] MEDS: PANTOprazole 40 MG TAB PO SCH (21:50)
[2021-08-20] MEDS: ROSUVASTATIN CALCIUM 5 MG TAB PO SCH (21:52)
[2021-08-20] MEDS ORDERED: MELATONIN 3 MG TAB PO ONE (23:52)
[2021-08-21] MEDS ORDERED: MELATONIN 3 MG TAB PO PRN (00:34)
[2021-08-21] MEDS: TUBE FEEDING WATER FLUSH GT SCH ×6 (04:30→23:45)
[2021-08-21] MEDS: LEVOTHYROXINE SODIUM 100 MCG TABLET PO SCH (05:18)
[2021-08-21] MEDS: DICLOFENAC SOD 1% GEL 100 GM TUBE EXT PRN (05:19)
[2021-08-21] MEDS: buPROPion SR 100 MG TABCR PO SCH ×2 (07:33→21:36)
[2021-08-21] MEDS: DICLOFENAC SOD 1% GEL 100 GM TUBE EXT SCH ×4 (07:33→21:39)
[2021-08-21] MEDS: ENOXAPARIN INJ 40 MG/0.4 ML SYR SQ SCH (07:33)
[2021-08-21] MEDS: LIDOCAINE 5% 1 PATCH TD SCH (07:34)
[2021-08-21] MEDS: FLUTICASONE PROPIONATE NA SPR 16 GM BTL NAE SCH (07:34)
[2021-08-21] MEDS: SENNA 8.6 MG TAB PO SCH (07:35)
[2021-08-21] MEDS: FIRST - Mouthwash BLM 119 ML PO SCH ×3 (07:36→21:38)
[2021-08-21] MEDS: NYSTATIN SUSP 500,000 U/5 ML UDC PO SCH ×4 (07:36→21:38)
[2021-08-21] MEDS: PEPTAMEN 1.5 CAL 1,000 ML BAG PEG SCH ×4 (07:37→21:45)
[2021-08-21] MEDS ORDERED: TAPENTADOL HCL 50 MG TAB PO PRN (08:36)
--- NOTE | 2021-08-21 08:43 | Pain Management Consultation ---
Date of Consultation August 21, 2021 Assessment & Plan (1) Thoracic back pain: (2) Myofascial pain: (3) Tongue cancer: (4) Fibromyalgia: (5) Depressive disorder: 1. Will hold oxycodone and initiate a trial of Nucynta 50 mg every 6 hours for breakthrough pain to assess tolerability and efficacy 2. Will initiate baclofen 10 mg twice daily 3. Will contact [facility] to determine her prior dosing of duloxetine which has not been continued upon this admission. Will consider resuming once dose confirmation is obtained. 4. Encouraged participation with PT/OT 5. We spent a great deal of time discussing her recent extensive [facility] admission, physical deconditioning, her opiate utilization, the possibility of opiate withdrawal and opioid-induced hyperalgesia with regards to her concomitant diagnosis of fibromyalgia and her current pain complaints. Patient verbalized understanding and all questions were answered. 6. Patient will continue Lidoderm patch, Voltaren gel and acetaminophen Thank you for allowing us to participate in the care of Mrs. Boucher History of Present Illness Reason for Consultation: Thoracic back pain Requesting Physician: Rigoberto Jaramillo MD Attending Physician: Rigoberto Jaramillo History of Present Illness Mrs. Boucher is a 76-year-old white female who was admitted from [facility] for evaluation of acute UTI and back pain complaint. The patient reports a recent extended admission at [facility] for treatment of tongue cancer with radiation and chemotherapy. The patient reported fairly significant pain in the mouth and tongue region during this treatment and reported use of multiple opiate therapies upon that admission such as fentanyl, Dilaudid and oxycodone. She reports that she was weaned to oxycodone for discharge which she was reportedly utilizing intermittently. The physician at the residential felt she was going through some withdrawal symptoms on her first few days upon return home from the admission. She developed severe back pain in the thoracic region last on 08/16/2021 without known injury. She has some associated sweating, fevers and chills with subsequent diagnosis of UTI upon this admission, but back pain complaint is inconsistent with pyelonephritis etiology. She reports her pain is episodic described as cramping and spasming/wavelike which is traveling up and down the left and right side of the thoracic region. She rarely experiences pain which can travel along the posterior lateral chest wall bilaterally and equal. She denies increased pain with deep breathing, coughing or sneezing activities. Her pain is not typically precipitated with an y particular activity per her report. Her pain was severe last evening although she did sleep throughout the night after provided melatonin. She reports chronic diagnosis of fibromyalgia and chronic utilization of duloxetine which has not been continued upon this admission. She has been on gabapentin 100 mg nightly recently titrated to 200 mg nightly upon this admission chronically for restless leg syndrome per her report. Patient reports that her mouth pain is improving slowly. She remains with difficulty eating due to the discomfort and has PEG tube in place. Patient believes the Lidoderm patch is beneficial at diminishing her back pain. She has not found benefit from Voltaren. She reports prior utilization of celecoxib chronically which "controlled her pain" but she is currently unable to utilize due to the PEG tube. Patient denies bowel or bladder incontinence or saddle anesthesias. She has no lumbar radicular component to pain complaints or weaknesses in the lower extremity. She reports limited activity over the past few months due to her [facility] admission. Patient has no further constitutional complaints. Plan of care discussed with Dr. Ekaterina Bailey. Pain Assessment Full Body Front + Back: 1. Left-sided paravertebral-thoracic region 2. Right-sided paravertebral-thoracic region Pain scale - at its best (0-10): 3 Pain scale - at its worst (0-10): 10 Allergies Allergy/AdvReac Type Severity Reaction Status Date / Time morphine Allergy Mild Rash Verified 08/19/21 23:35 Iodinated Contrast Media Allergy Unknown CONTRAST Verified 08/19/21 21:20 ALLERGY Penicillins Allergy Unknown Unknown Verified 08/19/21 23:35 shellfish derived Allergy Unknown DIGESTIVE Unverified 08/19/21 21:20 ISSUES Sulfa (Sulfonamide Allergy Unknown Unknown Verified 08/19/21 23:35 Antibiotics) Corticosteroids AdvReac Unknown PVC's Verified 08/19/21 23:35 (Glucocorticoids) NSAIDS (Non-Steroidal AdvReac Unknown Could lead Unverified 08/19/21 21:21 Anti-Inflamma to bleeding with past surgical history Home Medications Medication Instructions Recorded Confirmed Type bupropion HCl 100 mg tablet,12 hr 100 mg PO QAM 04/06/21 08/19/21 History sustained-release (Wellbutrin SR) gabapentin 100 mg capsule 100 mg PO QAM 04/06/21 08/19/21 History (Neurontin) levothyroxine 100 mcg tablet 100 mcg PO QAM 04/06/21 08/19/21 History (Synthroid) omeprazole 20 mg capsule,delayed 20 mg PO PM 04/06/21 08/19/21 History release rosuvastatin 5 mg tablet (Crestor) 5 mg PO 3XWK 04/06/21 08/19/21 History acetaminophen 500 mg tablet 500 mg PO Q6H PRN 08/19/21 08/19/21 History (Tylenol Extra Strength) cholecalciferol (vitamin D3) 50 50 mcg PO QAM 08/19/21 08/19/21 History mcg (2,000 unit) tablet (Vitamin D3) fluticasone propionate 50 2 spray INTRANASAL QAM 08/19/21 08/19/21 History mcg/actuation nasal spray,suspension oxycodone 5 mg tablet 5 mg PO DIRECTED PRN 08/19/21 08/19/21 History Pain History Pain Intensity Pain scale - at its best (0-10): 3 Pain scale - at its worst (0-10): 10 Patient History Medical History (Updated 08/21/21 @ 08:54 by Kamron Pedro PA-C) Back pain Breast cancer Carcinoma Depressive disorder Dilation of esophagus Esophageal stricture Fibromyalgia HLD (hyperlipidemia) Hypothyroidism Hypothyroidism Myofascial pain Radial head fracture Surgical History History of appendectomy History of section History of cholecystectomy History of spinal fusion L4-5 History of tonsillectomy Family History (Updated 04/06/21 @ 13:57 by Carina Mg) Mother Hearing loss Allergies Asthma Father Stroke Heart disease Grandmother (Maternal) Allergies Asthma Daughter Allergies Asthma Other No family history of adverse response to anesthesia No family history of bleeding disorder Social History Smoking Status: Never smoker Years Smoked: 15; Cigarettes Per Day: 1-2; Hx Alcohol Use: No Hx Substance Use: No Preferred Language: Yoruba Communication Ability: Effective Informatics Educator Required: No Beliefs That Will Affect Care: None marital status: Single Current Living Situation: Custodial Current Living Situation Comment: [facility] current occupational status: retired How many Children do You have: 1 Other Information That Helps Us Care for You: No Feels Safe at Home: Yes Safety Concerns: Feels Safe At This Time Assistive Devices: Walker Physical Exam Physical Exam: General: Patient sitting quietly in exam room in no acute distress. Speech and thought process appropriate. Mood and affect appropriate. Cognition intact. Head: Normocephalic and atraumatic. Eyes: Pupils equal round reactive to light. Neck: Supple without adenopathy and full range of motion. Chest: Nontender to palpation of the costosternal junction. Nontender with AP/lateral compression of the chest wall. Nontender along the posterior, lateral anterior ribs or intercostal spaces. Abdomen: Soft and nondistended. No organomegaly. Bowel sounds active. Back/spine: Normal thoracic kyphosis and slight loss of lumbar lordosis. Nontender over the midline to palpation or percussion. Generalized tenderness in the thoracic paravertebral musculature. There is some appreciable spasm in the left mid thoracic paravertebral musculature when compared to the right. No focal thoracic facet joint tenderness. A few scattered ill-defined myoneural trigger points were appreciated on the left side. Nontender over the lumbar paravertebral, facet joint or SI joint region to direct palpation. Nontender in the gluteal musculature. Musculoskeletal: Patient has diffuse myofascial tenderness. Patient is tender at greater than 11/18 sites identified by ACR relating to fibromyalgia. Lower extremities: SLR negative bilaterally. Strength testing 5/5 with dorsiflexion, plantar flexion and hip flexion/extension without increase in axial pain. Sensation intact distally to sharp and dull. No appreciable edema. Neurologic: Cranial nerves grossly intact. Ambulatory function not witnessed.
[2021-08-21 08:44] LABS: Basophils # (auto) 0.05 K/uL (0-0.2); Basophils % (auto) 0.7 %; Eosinophils # (auto) 0.15 K/uL (0-0.5); Eosinophils % (auto) 2.1 %; Hematocrit (blood only) 33.9 % (37-47); Hemoglobin 10.7 g/dL (12.0-16.0); Immature Granulocytes # (auto) 0.16 K/uL (0.00-0.02); Immature Granulocytes % (auto) 2.2 %; Lymphocytes % (auto) 9.8 %; Mean Corpuscular Hgb Conc 31.6 g/dL (32-36); Mean Corpuscular Volume 98.3 fL (80-100); Mean Platelet Volume 9.3 fL (7.4-10.4); Monocytes # (auto) 0.44 K/uL (0.11-0.59); Monocytes % (auto) 6.1 %; Neutrophils # (auto) 5.67 K/uL (1.4-6.5); Neutrophils % (auto) 79.1 %; Platelet Count 587 K/uL (130-400); RDW Coefficient of Variation 18.3 % (11.5-14.5); RDW Standard Deviation 65.1 fL (36.4-46.3); Red Blood Count 3.45 M/uL (4.2-5.4); White Blood Count 7.17 K/uL (4.8-10.8)
[2021-08-21] MEDS: BACLOFEN 10 MG TAB PO SCH ×2 (08:55→21:33)
[2021-08-21 09:14] LABS: Alanine Aminotransferase 13 U/L (7-52); Albumin Globulin Ratio 1.1 (0.9-2); Albumin Level 3.6 gm/dl (3.4-5.0); Alkaline Phosphatase 68 U/L (34-104); Anion Gap 9 (3-11); Aspartate Aminotransferase 11 U/L (13-39); BUN Creatinine Ratio 33.3 (10-20); Bilirubin,Total 0.2 mg/dl (0.2-1.0); Blood Urea Nitrogen 20 mg/dl (6-23); C Reactive Protein < 0.50 mg/dl (0-0.5); Calcium 9.5 mg/dl (8.5-10.1); Carbon Dioxide 26 mmol/L (21-32); Chloride 102 mmol/L (98-107); Creatinine Clr Calc Pharmacy 82.5 ml/min; Est GFR (African American) 101.9 ml/min; Est GFR (Non-African American) 87.9 ml/min; Globulin 3.3 gm/dl (2.5-4.0); Glucose 99 mg/dl (70-99(Fasting)); Magnesium 1.8 mg/dl (1.7-2.4); Potassium 4.3 mmol/L (3.5-5.1); Sodium 137 mmol/L (136-145); Total Protein 6.9 gm/dl (6.0-8.3)
[2021-08-21] MEDS: ACETAMINOPHEN 500 MG TAB PO PRN (09:38)
[2021-08-21] MEDS ORDERED: DULoxetine HCL 60 MG CAP PO ONE (11:30)
--- NOTE | 2021-08-21 17:05 | Hospitalist Progress Note ---
Date of Service August 21, 2021 Assessment & Plan (1) Somatic dysfunction of thoracic region: Plan: OMT as above, d/w pt and family would likely benefit from ongoing OMT after discharge Admission and Anticipated Discharge Date Admission Date: August 20, 2021 Subjective L sided midthoracic pain better today, had bad R sided shoulder and upper back pain last night, now more R sided mid thoracic pain Physical Exam Physical Exam: R sided Tspine paraspinals high tone/tender/decreased ROM, as is upper thoracic musculature in region of levator scapulae - direct myofascial - improved. *majority of OMT done under my direct supervision by Raimundo Cervantes DO, PGY1, a small portion done personally by myself as well Results & Data Results & Data ([facility]) Vital Signs (Past 12 Hours) Vital Signs Temp Pulse Resp BP Pulse Ox 08/21/21 16:01 97.9 F 92 H 16 107/71 94 08/21/21 07:35 97.5 F L 91 H 16 127/80 94 PG Care Time/CCT Total # of Minutes Spent Total Time Spent with Patient: Total time spent is greater than 50% in coordination of care (as documented) at patient's floor/unit and/or counseling patient: Coding Level of Care Code None Diagnoses Somatic dysfunction of thoracic region M99.02 CPT Codes Musculoskeletal - Musculoskeletal: 53413 Osteo Aime Tr 1-2 Body regions ([id number])
[2021-08-21] MEDS: cefTRIAXone SODIUM 2,000 MG in DEXTROSE 5% 50 ML IV SCH (17:30)
[2021-08-21] MEDS ORDERED: diphenhydrAMINE Capsule 25 MG CAP PO ONE (17:36)
[2021-08-21] MEDS ORDERED: diphenhydrAMINE 50 MG/ML VIAL IV STA (17:39)
--- NOTE | 2021-08-21 20:20 | Hospitalist Progress Note ---
Date of Service August 21, 2021 Assessment & Plan (1) Thoracic back pain: Plan: Patient is known to have fibromyalgia. Patient has been off her NSAIDs since she has had a PEG tube. Asking for cymbalta and gabapentin to be restarted. Ordered topical NSAID. order MRI of thoracic spine. Patientis refusing, do not feel patient requires the MRI as her pain appears to be more paraspinal. appreciate input from pain management. Plan for discharge in next day or 2 depending on pain response. Patient will need to have tube feedings held for 1 hour prior to MRI of spine. Patient will also have OMT today. (2) Acute UTI: Plan: Acute UTI with improving urine and no leukocytosis or fevers but remaining with symptoms and left CVA tenderness - Ultrasound of bladder and kidneys evaluate for abscess - E.COLI awaiting sensitivities- change Levaquin to Rocephin secondary to age and fluoroquinolone- adjust based on sensitivities - Follow symptoms (3) Tongue cancer: Plan: S/P chemo and radiation therapy with prolonged stay - follows with C (4) Pain: Plan: Back pain primarily - Will add on lidocaine patch - tylenol - oxy 10mg p0 prn - Gabapentin- have room to increase - Consider adding narcotic patch if needed - Of note patient had delirium as well as drug induced parkinsonian side effects from [facility] (5) On enteral nutrition: Plan: On Jevity 1.5 - nutrition consulted appreciate assistance - free water may need to be added if po intake remains low- currently 60ml tid and with meds (6) Weakness: Plan: Continue with PT/OT (7) HLD (hyperlipidemia): Plan: Continue with statin (8) Hypothyroidism: Plan: Continue Synthroid (9) Thrush, oral: Plan: Magic Mouthwash and continue with nystatin (10) GERD (gastroesophageal reflux disease): Plan: Continue omeprazole Admission and Anticipated Discharge Date Admission Date: August 20, 2021 Subjective 76 yo female reports feeling mildly better. She reports her muscles appear less tense. She is willing to try another medication (nucynta) and is toleratig the baclofen. Review of Systems Review of Systems: All systems reviewed & are unremarkable except as noted in HPI & below Physical Exam Physical Exam: General: awake, alert, no apparent distress Head: Normocephalic, atraumatic ENT: PERRLA, EOMI, no pharyngeal exudate, mucous membranes dry, thrush to tongue, no erythema Neuro: AAO x 3, speech clear and appropriate Chest: equal rise and fall of the chest, no accessory muscle use, no heaves or thrills, Clear to auscultation, on room air, Cardiac: Regular rate and rhythm, telemetry reviewed, skin warm dry, cap refill <3 seconds, peripheral pulses +2 no JVD, no murmur, no edema GI: NABS x 4 quadrants, soft, nontender to palpation, no rebound, guarding or tenderness, PEG tube in place with no surrounding excoriation : Spontaneously voiding, no pain, pain to left kidney with deep palpation MSK: Back pain from shoulder blades to sacrum tender to palpation, (decreased) Psych: Normal mood and affect Skin: no rash or erythema Results & Data Results & Data ([facility]) Vital Signs (Past 12 Hours) Vital Signs Temp Pulse Resp BP Pulse Ox 08/21/21 16:01 36.6 C 92 H 16 107/71 94 PG Care Time/CCT Total # of Minutes Spent Total Time Spent with Patient: Total time spent is greater than 50% in coordination of care (as documented) at patient's floor/unit and/or counseling patient: Coding Level of Care Code 25521 Subseq Hosp Care Lvl 3 Diagnoses Thoracic back pain M54.6 Acute UTI N39.0 Tongue cancer C02.9 Pain R52 On enteral nutrition Z78.9 Weakness R53.1 HLD (hyperlipidemia) E78.5 Hypothyroidism E03.9 Thrush, oral B37.0 GERD (gastroesophageal reflux disease) K21.9 Time Spent (min) 35
[2021-08-21] MEDS ORDERED: GABAPENTIN 100 MG CAP PO SCH (21:00)
[2021-08-21] MEDS: PANTOprazole 40 MG TAB PO SCH (21:37)
[2021-08-22] MEDS: ACETAMINOPHEN 500 MG TAB PO PRN ×3 (01:18→19:33)
[2021-08-22] MEDS: TUBE FEEDING WATER FLUSH GT SCH ×5 (03:40→19:32)
[2021-08-22] MEDS: LEVOTHYROXINE SODIUM 100 MCG TABLET PO SCH (05:48)
[2021-08-22 07:59] LABS: Basophils # (auto) 0.08 K/uL (0-0.2); Basophils % (auto) 1.2 %; Eosinophils # (auto) 0.09 K/uL (0-0.5); Eosinophils % (auto) 1.3 %; Hematocrit (blood only) 32.9 % (37-47); Hemoglobin 10.5 g/dL (12.0-16.0); Immature Granulocytes # (auto) 0.12 K/uL (0.00-0.02); Immature Granulocytes % (auto) 1.8 %; Lymphocytes # (auto) 0.62 K/uL (1.2-3.4); Lymphocytes % (auto) 9.2 %; Mean Corpuscular Hemoglobin 31.2 pg (25-34); Mean Corpuscular Hgb Conc 31.9 g/dL (32-36); Mean Corpuscular Volume 97.6 fL (80-100); Monocytes # (auto) 0.75 K/uL (0.11-0.59); Monocytes % (auto) 11.1 %; Neutrophils # (auto) 5.08 K/uL (1.4-6.5); Neutrophils % (auto) 75.4 %; Platelet Count 549 K/uL (130-400); RDW Coefficient of Variation 18.6 % (11.5-14.5); RDW Standard Deviation 65.9 fL (36.4-46.3); Red Blood Count 3.37 M/uL (4.2-5.4); White Blood Count 6.74 K/uL (4.8-10.8)
[2021-08-22] MEDS: LIDOCAINE 5% 1 PATCH TD SCH (08:00)
[2021-08-22] MEDS: BACLOFEN 10 MG TAB PO SCH ×3 (08:02→19:34)
[2021-08-22] MEDS: buPROPion SR 100 MG TABCR PO SCH ×2 (08:02→19:35)
[2021-08-22] MEDS: NYSTATIN SUSP 500,000 U/5 ML UDC PO SCH ×4 (08:02→21:03)
[2021-08-22] MEDS: DULoxetine HCL 60 MG CAP PO SCH (08:02)
[2021-08-22] MEDS: ENOXAPARIN INJ 40 MG/0.4 ML SYR SQ SCH (08:02)
[2021-08-22] MEDS: FLUTICASONE PROPIONATE NA SPR 16 GM BTL NAE SCH (08:02)
[2021-08-22] MEDS: LIDOCAINE VISCOUS 2% 15 ML UDC MT PRN (08:02)
[2021-08-22] MEDS: DICLOFENAC SOD 1% GEL 100 GM TUBE EXT SCH (08:04)
[2021-08-22] MEDS: PEPTAMEN 1.5 CAL 1,000 ML BAG PEG SCH ×4 (08:04→22:11)
[2021-08-22] MEDS: FIRST - Mouthwash BLM 119 ML PO SCH ×3 (08:08→21:02)
[2021-08-22] MEDS: SENNA 8.6 MG TAB PO SCH (08:08)
[2021-08-22 08:24] LABS: Calcium 9.4 mg/dl (8.5-10.1); Creatinine Clr Calc Pharmacy 89.3 ml/min; Est GFR (African American) 104.9 ml/min; Est GFR (Non-African American) 90.5 ml/min; Magnesium 1.9 mg/dl (1.7-2.4); Potassium 4.3 mmol/L (3.5-5.1)
--- NOTE | 2021-08-22 08:53 | Pain Management Progress Note ---
Date of Service August 22, 2021 Assessment & Plan (1) Thoracic back pain: (2) Myofascial pain: (3) Tongue cancer: (4) Fibromyalgia: (5) Depressive disorder: Plan: 1. Will progress baclofen to 10 mg 3 times daily 2. Patient will remain off of Nucynta due to reaction with diaphoresis and redness affecting the face, neck and chest which responded to Benadryl. Nucynta has been placed on her allergy list. 3. Patient may continue with OxyIR for as needed breakthrough pain 4. Will discuss resuming celecoxib with hospitalist service. The patient reports prior utilization of celecoxib with efficacy without side effects. Prior dosing will need to be confirmed. Would recommend discontinuation of Voltaren gel with initiation of celecoxib. 5. Patient may follow-up in outpatient pain clinic as needed. Will sign off on patient at this time. Please contact pain service for reevaluation during hospitalization as needed. Admission and Anticipated Discharge Date Admission Date: August 20, 2021 Subjective Mrs. Boucher seen in follow-up after some medication adjustments yesterday. She tried Nucynta 50 mg x 1 but experienced diaphoresis and some redness of the face neck and chest and was provided Benadryl which resolved the symptoms. She does not believe Nucynta was helpful at diminishing pain complaints either. Her pain has been minimal over the past 12 hours reporting her current back pain is a 2- 4/10. She has not experienced any other severe sharp pain that she was previously experiencing. She was out of bed yesterday to the chair without limitation or exacerbation of symptoms. She continues with some mouth pain re lating to her tongue cancer treatment and continues with some difficulty swallowing. She believes that dietitian has worked out a plan for nutrition and feeding. Patient believes that baclofen has been helpful at 10 mg twice daily with diminishing frequency and severity of pain and she is tolerating the medication without side effects. She is requesting resuming celecoxib which she was previously taking for many years with benefit at treating her generalized pain complaints. She is unaware as to the reasoning that the medication was discontinued in the past. Patient has no further constitutional complaints. Plan of care discussed with Dr. Ekaterina Bailey. Pain Assessment Pain Assessment Full Body Front + Back: 1. Left thoracic paravertebral 2. Right thoracic paravertebral Pain scale - at its best (0-10): 2 Pain scale - at its worst (0-10): 4 Physical Exam Physical Exam: General: Patient was sitting up upon entering the room in no acute distress. Speech and thought process appropriate. Mood and affect appropriate. Cognition intact. Extremities: Strength 5/5 with dorsi and plantar flexion. Sensation intact distally. No appreciable edema. Neurologic: Cranial nerves grossly intact. Ambulation not witnessed.
[2021-08-22] MEDS ORDERED: CeleBREX 200 MG CAP PO SCH (13:00)
[2021-08-22] MEDS: levoFLOXacin ORAL SOLN 25MG/ML BTL PO SCH (16:15)
--- NOTE | 2021-08-22 17:09 | Hospitalist Progress Note ---
Date of Service August 22, 2021 Assessment & Plan (1) Thoracic back pain: Plan: Patient is known to have fibromyalgia. Patient has been off her NSAIDs since she has had a PEG tube. Asking for cymbalta and gabapentin to be restarted. Ordered topical NSAID. Due to not having signifcant immproveemnt in regards to her pain, will order celebrex. Patient is aware of risk fo PUD. Patient will continue on PPI. Patientis refusing mri OF SPINE, do not feel patient requires the MRI as her pain appears to be more paraspinal. appreciate input from pain management. Plan for discharge in next day or 2 depending on pain response. (2) Acute UTI: Plan: Acute UTI with improving urine and no leukocytosis or fevers but remaining with symptoms and left CVA tenderness - Ultrasound of bladder and kidneys evaluate for abscess - E.COLI awaiting sensitivities- change Levaquin to Rocephin secondary to age and fluoroquinolone- adjust based on sensitivities - Follow symptoms -Due to rash, will switch to levofloxacin. will continue for 4 more days. (3) Tongue cancer: Plan: S/P chemo and radiation therapy with prolonged stay - follows with [facility] (4) Pain: Plan: Back pain primarily - Will add on lidocaine patch - tylenol - oxy 10mg p0 prn - Gabapentin- have room to increase - Consider adding narcotic patch if needed - Of note patient had delirium as well as drug induced parkinsonian side effects from [facility] (5) On enteral nutrition: Plan: On Jevity 1.5 - nutrition consulted appreciate assistance - free water may need to be added if po intake remains low- currently 60ml tid and with meds (6) Weakness: Plan: Continue with PT/OT (7) HLD (hyperlipidemia): Plan: Continue with statin (8) Hypothyroidism: Plan: Continue Synthroid (9) Thrush, oral: Plan: Magic Mouthwash and continue with nystatin (10) GERD (gastroesophageal reflux disease): Plan: Continue omeprazole Admission and Anticipated Discharge Date Admission Date: August 20, 2021 Subjective 76 yo female reports having a rash on her face and chest. She reports it returned this AM, but it appears better. Review of Systems Review of Systems: All systems reviewed & are unremarkable except as noted in HPI & below Physical Exam Physical Exam: General: awake, alert, no apparent distress Head: Normocephalic, atraumatic ENT: PERRLA, EOMI, no pharyngeal exudate, mucous membranes dry, thrush to tongue, no erythema Neuro: AAO x 3, speech clear and appropriate Chest: equal rise and fall of the chest, no accessory muscle use, no heaves or thrills, Clear to auscultation, on room air, Cardiac: Regular rate and rhythm, telemetry reviewed, skin warm dry, cap refill <3 seconds, peripheral pulses +2 no JVD, no murmur, no edema GI: NABS x 4 quadrants, soft, nontender to palpation, no rebound, guarding or tenderness, PEG tube in place with no surrounding excoriation : Spontaneously voiding, no pain, pain to left kidney with deep palpation MSK: Back pain from shoulder blades to sacrum tender to palpation, (decreased) Psych: Normal mood and affect Skin: rash noted on face and chest. Results & Data Results & Data ([facility]) Vital Signs (Past 12 Hours) Vital Signs Temp Pulse Resp BP Pulse Ox 08/22/21 16:00 36.7 C 92 H 18 107/70 94 08/22/21 07:22 36.7 C 94 H 18 113/74 93 PG Care Time/CCT Total # of Minutes Spent Total Time Spent with Patient: Total time spent is greater than 50% in coordination of care (as documented) at patient's floor/unit and/or counseling patient: Coding Level of Care Code 92845 Subseq Hosp Care Lvl 3 Diagnoses Thoracic back pain M54.6 Acute UTI N39.0 Tongue cancer C02.9 Pain R52 On enteral nutrition Z78.9 Weakness R53.1 HLD (hyperlipidemia) E78.5 Hypothyroidism E03.9 Thrush, oral B37.0 GERD (gastroesophageal reflux disease) K21.9 Time Spent (min) 35
[2021-08-22] MEDS ORDERED: levoFLOXacin 750 MG TAB PO SCH (18:00)
[2021-08-22] MEDS ORDERED: levoFLOXacin ORAL SOLN 25MG/ML BTL PO SCH (18:00)
[2021-08-22] MEDS: GABAPENTIN 250 MG/5 ML 470 ML BTL PO SCH (20:59)
[2021-08-22] MEDS: oxyCODONE HCL IR 5 MG TAB (IMMEDIATE RELEASE) PO PRN (21:00)
[2021-08-22] MEDS: LANSOPRAZOLE 30 MG SOLTAB PEG SCH (21:02)
[2021-08-22] MEDS: ROSUVASTATIN CALCIUM 5 MG TAB PO SCH (21:06)
[2021-08-23] MEDS: TUBE FEEDING WATER FLUSH GT SCH ×7 (00:28→23:06)
[2021-08-23] MEDS: ACETAMINOPHEN 500 MG TAB PO PRN ×2 (04:03→15:24)
[2021-08-23] MEDS: LEVOTHYROXINE SODIUM 100 MCG TABLET PO SCH (06:25)
[2021-08-23 07:45] LABS: Hematocrit (blood only) 32.4 % (37-47); Hemoglobin 10.4 g/dL (12.0-16.0); Mean Corpuscular Hemoglobin 31.1 pg (25-34); Mean Corpuscular Hgb Conc 32.1 g/dL (32-36); Platelet Count 484 K/uL (130-400); RDW Coefficient of Variation 18.2 % (11.5-14.5); RDW Standard Deviation 64.2 fL (36.4-46.3); Red Blood Count 3.34 M/uL (4.2-5.4); White Blood Count 6.34 K/uL (4.8-10.8)
[2021-08-23] MEDS: BACLOFEN 10 MG TAB PO SCH ×3 (07:52→21:00)
[2021-08-23 08:10] LABS: Albumin Globulin Ratio 1.1 (0.9-2); Albumin Level 3.4 gm/dl (3.4-5.0); BUN Creatinine Ratio 42.6 (10-20); Bilirubin,Total 0.2 mg/dl (0.2-1.0); Calcium 9.1 mg/dl (8.5-10.1); Est GFR (African American) 101.3 ml/min; Est GFR (Non-African American) 87.4 ml/min; Globulin 3.2 gm/dl (2.5-4.0); Potassium 4.2 mmol/L (3.5-5.1); Total Protein 6.6 gm/dl (6.0-8.3)
[2021-08-23] MEDS: oxyCODONE HCL IR 5 MG TAB (IMMEDIATE RELEASE) PO PRN ×2 (08:19→16:24)
[2021-08-23] MEDS: SENNA 8.6 MG TAB PO SCH (08:20)
[2021-08-23] MEDS: DULoxetine HCL 60 MG CAP PO SCH (08:21)
[2021-08-23] MEDS: NYSTATIN SUSP 500,000 U/5 ML UDC PO SCH ×4 (08:22→21:10)
[2021-08-23] MEDS: buPROPion SR 100 MG TABCR PO SCH ×2 (08:23→21:10)
[2021-08-23] MEDS: FIRST - Mouthwash BLM 119 ML PO SCH ×3 (08:24→21:18)
[2021-08-23] MEDS: ENOXAPARIN INJ 40 MG/0.4 ML SYR SQ SCH (08:25)
[2021-08-23] MEDS: FLUTICASONE PROPIONATE NA SPR 16 GM BTL NAE SCH (08:25)
[2021-08-23] MEDS: LIDOCAINE 5% 1 PATCH TD SCH (08:26)
[2021-08-23] MEDS: PEPTAMEN 1.5 CAL 1,000 ML BAG PEG SCH ×4 (10:56→21:09)
[2021-08-23] MEDS ORDERED: methylPREDNISolone 40 MG in SYRINGE 0 ML IV SCH (12:00)
[2021-08-23] MEDS ORDERED: busPIRone 5 MG TAB PO PRN (16:07)
--- NOTE | 2021-08-23 16:08 | Psychiatric Consultation ---
Date of Consultation August 23, 2021 Impression / Recommendations Impression 76 yo female with recurrent depression and anxious distress related to ongoing ?neuropathic pain following cancer treatment with stage of life change in quality of life. Certainly combo of Wellbutrin/Cymbalta can increase risk of serotonin syndrome, particularly in polypharmacy which can present with restlessness and feeling of jitteriness but I do not see overt signs on exam, no GI complaints, no AMS. (1) Depressive disorder: risks/benefits/alternatives reviewed with patient and daughter, they agreed to trial of Neurontin 100 mg evening meal today and 200 mg hs with plan for 100 mg BID with meals tomorrow + 200 mg hs. may use Buspar 5 mg TID prn breakthrough anxiety they are aware of risks of combined sedation/falls. will continue to monitor for serotonin syndrome. 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 Consult by hospitalist service for depression and anxiety. Chief Complaint "I need someone to help me, I can't live like this". History of Present Illness Patient seen, reviewed with nursing, daughter at bedside. Patient had signed SUSU for Dr. Mccartney so also contacted for additional clinical. Patient was an active teacher for 50 years and was lliving in [facility]. Multiple stressors past year or so with of only remaining sister and rad/chemo for tongue cancer. She says things like "I would have never gone through treatment if I knew I would feel like this" "what kind of life is this?" But is clear that she would not try to end her life. She reports if her "chemo neuropathy" was controlled she'd be happy. She wishes she didn't have to be in the more skilled care area of [facility]. She has sleep issues due to restless legs and states currently "my feet are tapping due to the pain." She denies jitteriness or hyperreflexia. Per Dr. Mccartney she was started on Ativan in Apr by ENT or ONC during at [facility]. Long history of recurrent depression that had been under good control with cymbalta and Wellbutrin. Last increase on Wellbutrin was 09/2020. She was last seen by Dr. Mccartney on 06/27/21. Neurontin at bedtime has reportedly been helpful but she gets sedation at doses higher than 200 mg. She is willing to try a lower dose during the daytime. Past Psychiatric History Outpatient Services: [facility] Do You Have Access To A Gun?: No History of Previous Suicide Attempt: No Past Medication Trials: do not have full list from [facility]--Dr. Mccartney denied prior trial of Buspar. Allergies Allergy/AdvReac Type Severity Reaction Status Date / Time morphine Allergy Mild Rash Verified 08/19/21 23:35 Iodinated Contrast Media Allergy Unknown CONTRAST Verified 08/19/21 21:20 ALLERGY Penicillins Allergy Unknown Unknown Verified 08/19/21 23:35 shellfish derived Allergy Unknown DIGESTIVE Unverified 08/19/21 21:20 ISSUES Sulfa (Sulfonamide Allergy Unknown Unknown Verified 08/19/21 23:35 Antibiotics) Corticosteroids AdvReac Unknown PVC's Verified 08/19/21 23:35 (Glucocorticoids) NSAIDS (Non-Steroidal AdvReac Unknown Could lead Unverified 08/19/21 21:21 Anti-Inflamma to bleeding with past surgical history tapentadol [From Nucynta] AdvReac Redness of Verified 08/21/21 19:14 Skin Home Medications Medication Instructions Recorded Confirmed Type bupropion HCl 100 mg tablet,12 hr 100 mg PO QAM 04/06/21 08/19/21 History sustained-release (Wellbutrin SR) gabapentin 100 mg capsule 100 mg PO QAM 04/06/21 08/19/21 History (Neurontin) levothyroxine 100 mcg tablet 100 mcg PO QAM 04/06/21 08/19/21 History (Synthroid) omeprazole 20 mg capsule,delayed 20 mg PO PM 04/06/21 08/19/21 History release rosuvastatin 5 mg tablet (Crestor) 5 mg PO [id number] 04/06/21 08/19/21 History acetaminophen 500 mg tablet 500 mg PO Q6H PRN 08/19/21 08/19/21 History (Tylenol Extra Strength) cholecalciferol (vitamin D3) 50 50 mcg PO QAM 08/19/21 08/19/21 History mcg (2,000 unit) tablet (Vitamin D3) fluticasone propionate 50 2 spray INTRANASAL QAM 08/19/21 08/19/21 History mcg/actuation nasal spray,suspension oxycodone 5 mg tablet 5 mg PO DIRECTED PRN 08/19/21 08/19/21 History Personal History Highest Grade Completed: College Beliefs That Will Affect Care: None Patient History Medical History Back pain Breast cancer Carcinoma Depressive disorder Dilation of esophagus Esophageal stricture Fibromyalgia HLD (hyperlipidemia) Hypothyroidism Hypothyroidism Myofascial pain Radial head fracture Surgical History History of appendectomy History of section History of cholecystectomy History of spinal fusion L4-5 History of tonsillectomy Family History Mother Hearing loss Allergies Asthma Father Stroke Heart disease Grandmother (Maternal) Allergies Asthma Daughter Allergies Asthma Other No family history of adverse response to anesthesia No family history of bleeding disorder Social History Smoking Status: Never smoker Years Smoked: 15; Cigarettes Per Day: 1-2; Hx Alcohol Use: No Hx Substance Use: No Preferred Language: Burundian Communication Ability: Effective 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 Beliefs That Will Affect Care: None marital status: Single Current Living Situation: Assisted Current Living Situation Comment: [facility] current occupational status: retired How many Children do You have: 1 Other Information That Helps Us Care for You: No Feels Safe at Home: Yes Safety Concerns: Feels Safe At This Time Assistive Devices: Walker Physical Exam Psychiatric: Orientation: alert and oriented x 3 Apperance: appropriately dressed and appropriately groomed Eye Contact: good eye contact Speech: normal rate/rhythm/volume of speech Affect: + depressed affect and + anxious affect Mood: + depressed mood and + anxious mood Thought Process: + perseveration Thought Content: reality based without delusions Suicidal Thoughts: denies suicidal thoughts Homicidal Thoughts: denies homicidal thoughts Hallucinations: no auditory hallucinations and no visual hallucinations Cognition: attention grossly intact and language grossly intact Estimated Intelligence: consistent with education level Vital Signs (Past 24 Hours): Last Vital Signs Temp 36.7 C 08/23/21 15:10 Pulse 86 08/23/21 15:10 Resp 20 08/23/21 15:10 BP 109/68 08/23/21 15:10 Pulse Ox 93 08/23/21 15:10 Review of Systems All systems reviewed & are unremarkable except as noted in HPI & below Results & Data (PSY) Medications Administered Acetaminophen (Acetaminophen 500 Mg Tab) 500 mg PO Q6H PRN PRN Reason: Pain Stop: 09/18/21 23:14 Last Admin: 08/23/21 15:24 Dose: 500 mg Documented by: [id number] Admin: 08/23/21 04:03 Dose: 500 mg Documented by: [id number] Admin: 08/22/21 19:33 Dose: 500 mg Documented by: [id number] Admin: 08/22/21 11:41 Dose: 500 mg Documented by: [id number] Admin: 08/22/21 01:18 Dose: 500 mg Documented by: [id number] Admin: 08/21/21 09:38 Dose: 500 mg Documented by: [id number] Admin: 08/20/21 22:44 Dose: 500 mg Documented by: [id number] Admin: 08/20/21 07:47 Dose: 500 mg Documented by: [id number] Baclofen (Baclofen 10 Mg Tab) 10 mg PO TID JOVANNI Stop: 09/21/21 13:59 Last Admin: 08/23/21 14:18 Dose: Not Given Documented by: [id number] Admin: 08/23/21 07:52 Dose: 10 mg Documented by: [id number] Admin: 08/22/21 19:34 Dose: 10 mg Documented by: [id number] Admin: 08/22/21 13:20 Dose: 10 mg Documented by: [id number] Bupropion HCl (Bupropion Sr 100 Mg Tabcr) 100 mg PO BID JOVANNI Stop: 09/19/21 20:59 Last Admin: 08/23/21 08:23 Dose: 100 mg Documented by: [id number] Admin: 08/22/21 19:35 Dose: 100 mg Documented by: [id number] Admin: 08/22/21 08:02 Dose: 100 mg Documented by: [id number] Admin: 08/21/21 21:36 Dose: 100 mg Documented by: [id number] Admin: 08/21/21 07:33 Dose: 100 mg Documented by: [id number] Admin: 08/20/21 16:42 Dose: 100 mg Documented by: [id number] Diclofenac Sodium (Diclofenac Sod 1% Gel 100 Gm Tube) 4 gm EXT Q6H PRN PRN Reason: thoracic back painc Stop: 09/19/21 15:14 Last Admin: 08/21/21 05:19 Dose: 4 gm Documented by: [id number] Admin: 08/20/21 16:42 Dose: 4 gm Documented by: [id number] Duloxetine HCl (Duloxetine Hcl 60 Mg Cap) 120 mg PO QAM [facility] Stop: 09/21/21 08:59 Last Admin: 08/23/21 08:21 Dose: 120 mg Documented by: [id number] Admin: 08/22/21 08:02 Dose: 120 mg Documented by: [id number] Enoxaparin Sodium (Enoxaparin Inj 40 Mg/0.4 Ml Syr) 40 mg SQ Q24H [facility] Stop: 09/19/21 08:59 Last Admin: 08/23/21 08:25 Dose: 40 mg Documented by: [id number] Admin: 08/22/21 08:02 Dose: 40 mg Documented by: [id number] Admin: 08/21/21 07:33 Dose: 40 mg Documented by: [id number] Admin: 08/20/21 09:12 Dose: 40 mg Documented by: [id number] Enteral Nutritional Formula (Peptamen 1.5 Chung 1,000 Ml Bag) 1,000 ml PEG QID [facility]; Protocol Stop: 09/19/21 16:59 Last Admin: 08/23/21 14:19 Dose: 1,000 ml Documented by: [id number] Admin: 08/23/21 10:56 Dose: 1,000 ml Documented by: [id number] Admin: 08/22/21 22:11 Dose: 315 ml Documented by: [id number] Admin: 08/22/21 17:40 Dose: 315 ml Documented by: [id number] Admin: 08/22/21 13:19 Dose: 315 ml Documented by: [id number] Admin: 08/22/21 08:04 Dose: 315 ml Documented by: [id number] Admin: 08/21/21 21:45 Dose: Not Given Documented by: [id number] Admin: 08/21/21 18:27 Dose: 315 ml Documented by: [id number] Admin: 08/21/21 13:01 Dose: 315 ml Documented by: [id number] Admin: 08/21/21 07:37 Dose: 315 ml Documented by: [id number] Admin: 08/20/21 22:45 Dose: Not Given Documented by: [id number] Admin: 08/20/21 18:22 Dose: 315 ml Documented by: [id number] Fluticasone Propionate (Fluticasone Propionate Na Spr 16 Gm Btl) 2 sprays JERMAIN QAM [facility] Stop: 09/19/21 08:59 Last Admin: 08/23/21 08:25 Dose: 2 sprays Documented by: [id number] Admin: 08/22/21 08:02 Dose: 2 sprays Documented by: [id number] Admin: 08/21/21 07:34 Dose: 2 sprays Documented by: [id number] Admin: 08/20/21 09:12 Dose: 2 sprays Documented by: [id number] Gabapentin (Gabapentin 250 Mg/5 Ml 470 Ml Btl) 200 mg PO HS JOVANNI Stop: 09/21/21 20:59 Last Admin: 08/22/21 20:59 Dose: 200 mg Documented by: [id number] Methylprednisolone 40 mg/ (Syringe) 0.64 mls @ 1.5 mls/min IV Q24H JOVANNI Stop: 09/22/21 11:59 Last Admin: 08/23/21 13:15 Dose: 1.5 mls/min Documented by: [id number] Lansoprazole (Lansoprazole 30 Mg Soltab) 30 mg PEG PM JOVANNI Stop: 09/21/21 20:59 Last Admin: 08/22/21 21:02 Dose: 30 mg Documented by: [id number] Levofloxacin (Levofloxacin Oral Soln 25mg/Ml Btl) 750 mg PO Q24H JOVANNI Stop: 08/25/21 16:01 Last Admin: 08/22/21 16:15 Dose: 750 mg Documented by: [id number] Levothyroxine Sodium (Levothyroxine Sodium 100 Mcg Tablet) 100 mcg PO DAILYBB JOVANNI Stop: 09/19/21 06:29 Last Admin: 08/23/21 06:25 Dose: 100 mcg Documented by: [id number] Admin: 08/22/21 05:48 Dose: 100 mcg Documented by: [id number] Admin: 08/21/21 05:18 Dose: 100 mcg Documented by: [id number] Admin: 08/20/21 05:27 Dose: 100 mcg Documented by: [id number] Lidocaine (Lidocaine 5% 1 Patch) 1 patch TD DAILY@0900 JOVANNI Stop: 09/19/21 08:59 Last Admin: 08/23/21 08:26 Dose: 1 patch Documented by: [id number] Admin: 08/22/21 08:00 Dose: 1 patch Documented by: [id number] Admin: 08/21/21 07:34 Dose: 1 patch Documented by: [id number] Admin: 08/20/21 07:07 Dose: 1 patch Documented by: [id number] Lidocaine HCl (Lidocaine Viscous 2% 15 Ml Udc) 15 ml MT Q2H PRN PRN Reason: Pain Stop: 09/19/21 05:56 Last Admin: 08/20/21 21:48 Dose: 15 ml Documented by: [id number] Admin: 08/20/21 20:11 Dose: 15 ml Documented by: [id number] Admin: 08/20/21 06:24 Dose: 15 ml Documented by: [id number] Melatonin (Melatonin 3 Mg Tab) 3 mg PO HS PRN PRN Reason: Sleep Stop: 09/20/21 00:33 Last Admin: 08/21/21 21:34 Dose: 3 mg Documented by: [id number] Miscellaneous (Remove Lidoderm Patch) 1 ea N/A DAILY@2100 [facility] Stop: 09/19/21 20:59 Last Admin: 08/22/21 21:08 Dose: 1 ea Documented by: [id number] Admin: 08/21/21 21:44 Dose: 1 ea Documented by: [id number] Admin: 08/20/21 21:51 Dose: 1 ea Documented by: [id number] Multi-Ingredient Mouthwash/Gargle (First - Mouthwash Blm 119 Ml) 5 ml PO TID [facility] Stop: 09/19/21 08:59 Last Admin: 08/23/21 14:18 Dose: 5 ml Documented by: [id number] Admin: 08/23/21 08:24 Dose: 5 ml Documented by: [id number] Admin: 08/22/21 21:02 Dose: 5 ml Documented by: [id number] Admin: 08/22/21 13:20 Dose: 5 ml Documented by: [id number] Admin: 08/22/21 08:08 Dose: 5 ml Documented by: [id number] Admin: 08/21/21 21:38 Dose: 5 ml Documented by: [id number] Admin: 08/21/21 13:04 Dose: 5 ml Documented by: [id number] Admin: 08/21/21 07:36 Dose: 5 ml Documented by: [id number] Admin: 08/20/21 21:49 Dose: 5 ml Documented by: [id number] Admin: 08/20/21 13:16 Dose: Not Given Documented by: [id number] Admin: 08/20/21 12:48 Dose: 5 ml Documented by: [id number] Nystatin (Nystatin Susp 500,000 U/5 Ml Udc) 5 ml PO QID JOVANNI Stop: 08/30/21 08:59 Last Admin: 08/23/21 13:15 Dose: 5 ml Documented by: [id number] Admin: 08/23/21 08:22 Dose: 5 ml Documented by: [id number] Admin: 08/22/21 21:03 Dose: 5 ml Documented by: [id number] Admin: 08/22/21 17:41 Dose: 5 ml Documented by: [id number] Admin: 08/22/21 13:20 Dose: 5 ml Documented by: [id number] Admin: 08/22/21 08:02 Dose: 5 ml Documented by: [id number] Admin: 08/21/21 21:38 Dose: 5 ml Documented by: [id number] Admin: 08/21/21 17:30 Dose: 5 ml Documented by: [id number] Admin: 08/21/21 12:40 Dose: 5 ml Documented by: [id number] Admin: 08/21/21 07:36 Dose: 5 ml Documented by: [id number] Admin: 08/20/21 21:48 Dose: 5 ml Documented by: [id number] Admin: 08/20/21 16:43 Dose: 5 ml Documented by: [id number] Admin: 08/20/21 13:15 Dose: 5 ml Documented by: [id number] Admin: 08/20/21 09:12 Dose: 5 ml Documented by: [id number] Ondansetron HCl (Ondansetron Inj 2 Mg/Ml 2 Ml Vial) 4 mg IV Q6H PRN PRN Reason: Nausea Stop: 09/18/21 23:14 Last Admin: 08/20/21 20:11 Dose: 4 mg Documented by: [id number] Admin: 08/20/21 05:30 Dose: 4 mg Documented by: [id number] Oxycodone HCl (Oxycodone Hcl Ir 5 Mg Tab (Immediate Release)) 10 mg PO Q6 PRN PRN Reason: Pain Stop: 09/02/21 23:14 Last Admin: 08/23/21 08:19 Dose: 10 mg Documented by: [id number] Admin: 08/22/21 21:00 Dose: 10 mg Documented by: [id number] Admin: 08/20/21 21:46 Dose: 10 mg Documented by: [id number] Admin: 08/20/21 14:04 Dose: 10 mg Documented by: [id number] Admin: 08/20/21 05:27 Dose: 10 mg Documented by: [id number] Rosuvastatin Calcium (Rosuvastatin Calcium 5 Mg Tab) 5 mg PO MoWeFr@2100 [facility] Stop: 09/19/21 20:59 Last Admin: 08/22/21 21:06 Dose: 5 mg Documented by: [id number] Admin: 08/20/21 21:52 Dose: 5 mg Documented by: [id number] Sennosides (Senna 8.6 Mg Tab) 17.2 mg PO QAM [facility] Stop: 09/19/21 08:59 Last Admin: 08/23/21 08:20 Dose: 17.2 mg Documented by: [id number] Admin: 08/22/21 08:08 Dose: Not Given Documented by: [id number] Admin: 08/21/21 07:35 Dose: 17.2 mg Documented by: [id number] Admin: 08/20/21 13:15 Dose: 17.2 mg Documented by: [id number] Sterile Water (Tube Feeding Water Flush) 150 ml GT Q4H [facility] Stop: 09/19/21 11:29 Last Admin: 08/23/21 15:25 Dose: 150 ml Documented by: [id number] Admin: 08/23/21 12:23 Dose: 150 ml Documented by: [id number] Admin: 08/23/21 08:39 Dose: 150 ml Documented by: [id number] Admin: 08/23/21 03:42 Dose: 150 ml Documented by: [id number] Admin: 08/23/21 00:28 Dose: 150 ml Documented by: [id number] Admin: 08/22/21 19:32 Dose: 150 ml Documented by: [id number] Admin: 08/22/21 15:01 Dose: 150 ml Documented by: [id number] Admin: 08/22/21 11:41 Dose: 150 ml Documented by: [id number] Admin: 08/22/21 08:03 Dose: 150 ml Documented by: [id number] Admin: 08/22/21 03:40 Dose: 150 ml Documented by: [id number] Admin: 08/21/21 23:45 Dose: 150 ml Documented by: [id number] Admin: 08/21/21 19:50 Dose: 150 ml Documented by: [id number] Admin: 08/21/21 16:28 Dose: 150 ml Documented by: [id number] Admin: 08/21/21 11:26 Dose: 150 ml Documented by: [id number] Admin: 08/21/21 07:33 Dose: 150 ml Documented by: [id number] Admin: 08/21/21 04:30 Dose: 150 ml Documented by: [id number] Admin: 08/20/21 22:49 Dose: Not Given Documented by: [id number] Admin: 08/20/21 19:20 Dose: 150 ml Documented by: [id number] Admin: 08/20/21 16:42 Dose: 150 ml Documented by: [id number] Admin: 08/20/21 12:37 Dose: 150 ml Documented by: [id number] Coding Level of Care Code 07858 Inpt Consult Level 3 Diagnoses Depressive disorder F32.A
[2021-08-23] MEDS: ONDANSETRON INJ 2 MG/ML 2 ML VIAL IV PRN (16:10)
[2021-08-23] MEDS: levoFLOXacin ORAL SOLN 25MG/ML BTL PO SCH (17:14)
[2021-08-23] MEDS: GABAPENTIN 100 MG CAP PO SCH (17:14)
--- NOTE | 2021-08-23 20:48 | Hospitalist Progress Note ---
Date of Service August 23, 2021 Assessment & Plan (1) Thoracic back pain: Plan: Patient is known to have fibromyalgia. Patient has been off her NSAIDs since she has had a PEG tube. However she has britt on her voltaren gel. Patient has britt also treated with OMT by the resident team while here, which has helped decrease the tightness of her paraspinal muscles of her thoracic spine. Restarted her Cymbalta on 08/20. Reordered gabapentin on 08/23 Initally on topical NSAID, but stopped this is lieu of celebrex on 08/22 Patient understands risks of PUD and is on PPI. Patient started on corticosteroid on 08/23, and will hold celebrex while on steroid. Pain management is aware of change. Give her chornic etiology, and change of her meds at discharge from her previsous hospital stay, her pain may not be controlled as quickly as she hopes. Her anxiety is also leading her symptoms. Consulted psych appreciate input. Plan for discharge in next day or 2 depending on pain response. (2) Depressive disorder: Plan: Patient appears to have a component of anxiety/ and depression Holding of ativan given in her last hospital stay she was hallucinating. This is likely feeding into her pain as well. (3) Acute UTI: Plan: Acute UTI with improving urine and no leukocytosis or fevers but remaining with symptoms and left CVA tenderness - Ultrasound of bladder and kidneys evaluate for abscess - E.COLI awaiting sensitivities- change Levaquin to Rocephin secondary to age and fluoroquinolone- adjust based on sensitivities - Follow symptoms -Due to rash, will switch to levofloxacin. will continue for 3 more days, including today. (4) Tongue cancer: Plan: S/P chemo and radiation therapy with prolonged stay - follows with [facility] -patient is having thrush and may consider restarted oral antifungal. (5) Pain: Plan: Back pain primarily - Will add on lidocaine patch - tylenol - oxy 10mg p0 prn - Gabapentin- have room to increase - Consider adding narcotic patch if needed - Of note patient had delirium as well as drug induced parkinsonian side effects from [facility] (6) On enteral nutrition: Plan: On Jevity 1.5 - nutrition consulted appreciate assistance - free water may need to be added if po intake remains low- currently 60ml tid and with meds (7) Weakness: Plan: Continue with PT/OT (8) HLD (hyperlipidemia): Plan: Continue with statin (9) Hypothyroidism: Plan: Continue Synthroid (10) Thrush, oral: Plan: Magic Mouthwash and continue with nystatin -may need to consider oral antifungal (11) GERD (gastroesophageal reflux disease): Plan: Continue omeprazole Plan: Now tolerating some oral intake, however patient only want chicken without spices or citrus in a soup. Patient will call down to kitchen Dispo: return to [facility], once pain is improved. Admission and Anticipated Discharge Date Admission Date: August 20, 2021 Subjective 76 yo female reports having genreraized pain from her legs and her back. She is frustrated that her pain has not been improving. She also states that she is depressed. Yesterday she refused a psych consult, but today, she is agreeable. Patient is asking if she can have ativan. Review of Systems Review of Systems: All systems reviewed & are unremarkable except as noted in HPI & below Physical Exam Physical Exam: General: awake, alert, no apparent distress Head: Normocephalic, atraumatic ENT: PERRLA, EOMI, no pharyngeal exudate, mucous membranes dry, thrush to tongue, no erythema Neuro: AAO x 3, speech clear and appropriate Chest: equal rise and fall of the chest, no accessory muscle use, no heaves or thrills, Clear to auscultation, on room air, Cardiac: Regular rate and rhythm, telemetry reviewed, skin warm dry, cap refill <3 seconds, peripheral pulses +2 no JVD, no murmur, no edema GI: NABS x 4 quadrants, soft, nontender to palpation, no rebound, guarding or tenderness, PEG tube in place with no surrounding excoriation : Spontaneously voiding, no pain, pain to left kidney with deep palpation MSK: Back pain from shoulder blades to sacrum tender to palpation, (decreased) Psych: Normal mood and affect Skin: rash noted on face and chest. Results & Data Results & Data ([facility]) Vital Signs (Past 12 Hours) Vital Signs Temp Pulse Resp BP Pulse Ox 08/23/21 15:10 36.7 C 86 20 109/68 93 PG Care Time/CCT Total # of Minutes Spent Total Time Spent with Patient: Total time spent is greater than 50% in coordination of care (as documented) at patient's floor/unit and/or counseling patient: Coding Level of Care Code 68352 Subseq Hosp Care Lvl 3 Diagnoses Thoracic back pain M54.6 Acute UTI N39.0 Tongue cancer C02.9 Pain R52 On enteral nutrition Z78.9 Weakness R53.1 HLD (hyperlipidemia) E78.5 Hypothyroidism E03.9 Thrush, oral B37.0 GERD (gastroesophageal reflux disease) K21.9 Depressive disorder F32.A Time Spent (min) 55
[2021-08-23] MEDS: LANSOPRAZOLE 30 MG SOLTAB PEG SCH (21:10)
[2021-08-23] MEDS: GABAPENTIN 250 MG/5 ML 470 ML BTL PO SCH (21:17)
--- NOTE | 2021-08-23 22:14 | Electrocardiogram Report ---
Test Reason : Blood Pressure : / mmHG Vent. Rate : 086 BPM Atrial Rate : 086 BPM P-R Int : 150 ms QRS Dur : 084 ms QT Int : 366 ms P-R-T Axes : 049 019 029 degrees QTc Int : 437 ms Normal sinus rhythm Normal ECG When compared with ECG of 23-AUG-2021 10:34, No significant change was found Confirmed by Rikki Henriquez ([id number] on 08/23/2021 10:14:34 PM Referred By: REFERRED SELF Confirmed By:Rikki Henriquez
[2021-08-24] MEDS: oxyCODONE HCL IR 5 MG TAB (IMMEDIATE RELEASE) PO PRN ×2 (03:48→15:04)
[2021-08-24] MEDS: TUBE FEEDING WATER FLUSH GT SCH ×5 (03:50→19:59)
[2021-08-24] MEDS: LEVOTHYROXINE SODIUM 100 MCG TABLET PO SCH (06:31)
[2021-08-24] MEDS: LIDOCAINE VISCOUS 2% 15 ML UDC MT PRN ×2 (07:59→21:03)
[2021-08-24] MEDS: NYSTATIN SUSP 500,000 U/5 ML UDC PO SCH ×4 (08:00→20:53)
[2021-08-24] MEDS: SENNA 8.6 MG TAB PO SCH (08:00)
[2021-08-24] MEDS: DULoxetine HCL 60 MG CAP PO SCH (08:01)
[2021-08-24] MEDS: buPROPion SR 100 MG TABCR PO SCH ×2 (08:02→20:52)
[2021-08-24] MEDS: BACLOFEN 10 MG TAB PO SCH ×2 (08:02→13:05)
[2021-08-24] MEDS: LIDOCAINE 5% 1 PATCH TD SCH (08:03)
[2021-08-24] MEDS: GABAPENTIN 100 MG CAP PO SCH ×2 (08:03→16:22)
[2021-08-24] MEDS: ENOXAPARIN INJ 40 MG/0.4 ML SYR SQ SCH (08:04)
[2021-08-24] MEDS: FLUTICASONE PROPIONATE NA SPR 16 GM BTL NAE SCH (08:04)
[2021-08-24] MEDS: FIRST - Mouthwash BLM 119 ML PO SCH ×3 (08:09→20:56)
[2021-08-24] MEDS: PEPTAMEN 1.5 CAL 1,000 ML BAG PEG SCH ×3 (09:03→19:59)
[2021-08-24] MEDS: ACETAMINOPHEN 500 MG TAB PO PRN ×2 (12:01→21:10)
--- NOTE | 2021-08-24 12:28 | Hospitalist Progress Note ---
Date of Service August 24, 2021 Assessment & Plan (1) Thoracic back pain: Plan: Patient is known to have fibromyalgia. Patient has been off her NSAIDs since she has had a PEG tube. However she has britt on her voltaren gel. Patient has britt also treated with OMT by the resident team while here, which has helped decrease the tightness of her paraspinal muscles of her thoracic spine. Restarted her Cymbalta on 08/20. Reordered gabapentin on 08/23 Initally on topical NSAID, but stopped this is lieu of celebrex on 08/22, now discontinued and on IV steroids Patient understands risks of PUD and is on PPI. Patient started on corticosteroid on 08/23, and will hold celebrex while on steroid. Pain management is aware of change. Give her chronic etiology, and change of her meds at discharge from her previous hospital stay, her pain may not be controlled as quickly as she hopes. Her anxiety is also leading her symptoms. Consulted psych appreciate input. Appears much improved today although unclear why or specific etiology of pain ?neuropathic from chemotherapy and gabapentin helping vs. radiation induced although unclear why this would cause pain in her legs but possibly also from spinal cord radiation changes but given central thoracic and lumbar spinal te nderness will will get MRI thoracic/lumbar spines (patient unable to take contrast due to allergy to gadolinium) Discussed with oncology as originally she had a consult Notably patient was on Dilaudid 1mg Q6H JOVANNI and PRN doses for breakthrough pain therefore I do not suspect this to be a new however does appear to be intermittent and relapsing Discontinue steroids as suspect gabapentin helping her more than the steroids (2) Depressive disorder: Plan: Patient appears to have a component of anxiety/ and depression Holding of ativan given in her last hospital stay she was hallucinating. This is likely feeding into her pain as well. (3) Acute UTI: Plan: Acute UTI with improving urine and no leukocytosis or fevers but remaining with symptoms and left CVA tenderness - Ultrasound of bladder and kidneys - unremarkable - Pansensitive E. coli - initially switched Levaquin to Rocephin secondary to age, Due to rash, switched back to levquin with end date tomorrow. - no specific urinary symptoms (4) Tongue cancer: Plan: S/P chemo and radiation therapy with prolonged stay - follows with [facility] [place] - esophageal thrush treated with fluconazole at [facility] [place] (5) Pain: Plan: Back pain primarily - Will add on lidocaine patch - tylenol - oxy 10mg P0 prn - Gabapentin- suspect this has been the most helpful as she appears to be better today - Consider adding narcotic patch if needed - Of note patient had delirium as well as drug induced parkinsonian side effects from [facility] [place] - avoid anti-psychotics and metoclopramide (6) On enteral nutrition: Plan: On Jevity 1.5 - nutrition consulted appreciate assistance - free water may need to be added if po intake remains low- currently 60ml tid and with meds (7) Weakness: Plan: Continue with PT/OT (8) HLD (hyperlipidemia): Plan: Continue with statin (9) Hypothyroidism: Plan: TSH WNL Continue Synthroid (10) Thrush, oral: Plan: Magic Mouthwash and continue with nystatin -no definitive thrush on exam today (11) GERD (gastroesophageal reflux disease): Plan: Omeprazole switched to lansoprazole via PEG Plan: Diet - clear liquids as discussed with the patient - avoid acidic foods Dispo: return to [facility], once pain is improved. Admission and Anticipated Discharge Date Admission Date: August 20, 2021 Subjective Reports significant improvement in pain today. Steroids and gabapentin started and unsure which one was helping. Possibly also treating UTI helped. Notably vomited up levaquin suspension yesterday therefore switched to tablet form today. She is concerned about interaction of baclofen with her chemotherapy therefore has been refusing this. Review of Systems Review of Systems: All systems reviewed & are unremarkable except as noted in Subjective Physical Exam Constitutional: WD/WN, vitals as above Eyes: + anicteric sclerae; normal pupil size ENMT: external ear and nose normal, oropharynx normal Mouth: + tongue abnormality (yellow dry enlarged tongue papilla without other oral evidence of thrush) Respiratory: normal respiratory effort, lungs clear to auscultation Cardiovascular: RRR, no murmur, no edema Gastrointestinal (Abdomen): Percussion/Palpation: abdomen soft; abdomen nontender Musculoskeletal: no cyanosis or clubbing, extremities motor strength 5/5 Skin: no rashes, warm and dry Neurologic: moves all extremities and awake; not confused Psychiatric: A+Ox3, euthymic affect Results & Data Results & Data ([facility]) Vital Signs (Past 12 Hours) Vital Signs Temp Pulse Resp BP Pulse Ox 04/01/22 07:14 37.0 C 97 H 17 113/75 94 PG Care Time/CCT Total # of Minutes Spent Total Time Spent with Patient: Total time spent is greater than 50% in coordination of care (as documented) at patient's floor/unit and/or counseling patient: Coding Level of Care Code 27843 Subseq Hosp Care Lvl 2 Diagnoses Thoracic back pain M54.6 Depressive disorder F32.A Acute UTI N39.0 Tongue cancer C02.9 Pain R52 On enteral nutrition Z78.9 Weakness R53.1 HLD (hyperlipidemia) E78.5 Hypothyroidism E03.9 Thrush, oral B37.0 GERD (gastroesophageal reflux disease) K21.9
[2021-08-24 12:49] LABS: Ferritin 78.1 ng/ml (8-388)
--- NOTE | 2021-08-24 14:33 | Magnetic Resonance Report ---
MRI OF THE THORACIC SPINE WITHOUT CONTRAST CLINICAL HISTORY: T6 central spinal tenderness. History of head and neck cancer. COMPARISON: Thoracic spine radiographs November 28, 2009. PET/CT May 02, 2021. TECHNIQUE: Utilizing a 1.5 Radha magnet and dedicated coil, multiplanar, multiecho imaging of the th oracic spine was performed without IV contrast. FINDINGS: Vertebral body heights are maintained. There is no suspicious marrow replacement within the thoracic spine. Marrow heterogeneity of the spine is likely within normal limits. No thoracic spine fracture is present. Thoracic cord signal and caliber are normal. There is no intrahepatic canalicula r mass or fluid collection. Paravertebral soft tissues are unremarkable. Central canal and neural for amen within the thoracic spine are patent. The thoracic spine disc herniations are present. There is moderate disc space narrowing at T6-T7. There is also moderate disc space narrowing at T3-T4. C6-C7 f usion is incidentally noted. IMPRESSION: 1. No acute abnormality within the thoracic spine by MRI. 2. Patent central canal and neural foramen. 3. Normal thoracic cord signal and caliber. 4. Mild multilevel degenerative changes within the thoracic spine. ACT 112: Negative or not required by law. Electronically signed by: Mookie Brandt M.D. 08/24/2021 2:31 PM
[2021-08-24] MEDS: levoFLOXacin 750 MG TAB PO SCH (16:21)
--- NOTE | 2021-08-24 16:52 | Magnetic Resonance Report ---
MR lumbar spine wo con CLINICAL HISTORY: 76 years-old Female with L3 central spinal tenderness. Acute low back pain COMPARISON: MRI thoracic spine of same day, renal ultrasound 08/20/2021. TECHNIQUE: Multiplanar, multi sequence MRI of the lumbar spine was performed without intravenous cont rast. 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 No abdominal aortic aneurysm or adenopathy. There is atrophy of the paraspinal musculature. 6 mm anterolisthesis L4 on L5. 1.4 cm L3 vertebral body hemangioma. There is a septated 8.0 cm cystic s tructure within the deep pelvis which is partially imaged. Posterior interbody areli and screw fusion a t L4-L5. No acute fracture, endplate erosion or marrow replacing process. Dextroscoliosis of the lumb ar spine of 13 degrees with apex at L3. T12-L1: There is [id number] intervertebral disc space narrowing with spondylitic spurring. Pos terior annular disc bulge with mild facet arthrosis. The central canal and neural foramen are patent. L1-L2: Mild intervertebral disc space narrowing with spondylitic spurring and small posterior annula r disc bulge. Ligamentum flavum thickening with moderate facet arthrosis. No central canal or neural foraminal narrowing. L2-L3: Spondylitic spurring with small posterior annular disc bulge. Moderate facet arthrosis. No ce ntral canal or neural foraminal narrowing. L3-L4: Moderate intervertebral disc space narrowing with spondylitic spurring and circumferential an nular disc bulge. Ligamentum flavum thickening with severe facet arthrosis. Mild central canal stenos is with AP dimension of the thecal sac measuring 9 mm. Mild right with moderate left foraminal stenos is. L4-L5: Moderate intervertebral disc space narrowing with grade 1 anterolisthesis. Laminectomy with p osterior interbody areli and screw fusion. Small posterior annular disc bulge with disc space uncoverin g. The central canal is patent. Mild bilateral foraminal stenosis. L5-S1: Disc desiccation with mild spondylitic spurring and small circumferential annular disc bulge. Trace facet effusions with moderate facet arthrosis. Laminectomy. The central canal and left neural foramen are patent. Mild to moderate right foraminal stenosis. IMPRESSION: 1. Prior L4-L5 laminectomy with L4-L5 posterior interbody areli and screw fusion. 2. Moderate intervertebral disc space narrowing at L3-L4 with mild central canal stenosis, mild right and moderate left foraminal narrowing. 3. Additional discogenic degeneration with spondylitic spurring and facet arthrosis as above. 4. Mid lumbar dextroscoliosis. 5. Partially imaged septated cystic lesion of the left adnexum measures up to 8 cm. Correlation with a nonemergent follow-up pelvic ultrasound recommended. ACT 112: Negative or not required by law. The above report was generated using voice recognition software. It may contain grammatical, syntax o r spelling errors. Electronically signed by: Crow Tripp M.D. 08/24/2021 4:51 PM
[2021-08-24] MEDS: LANSOPRAZOLE 30 MG SOLTAB PEG SCH (20:52)
[2021-08-24] MEDS: ROSUVASTATIN CALCIUM 5 MG TAB PO SCH (20:53)
[2021-08-24] MEDS: GABAPENTIN 250 MG/5 ML 470 ML BTL PO SCH (20:57)
[2021-08-25] MEDS: oxyCODONE HCL IR 5 MG TAB (IMMEDIATE RELEASE) PO PRN ×2 (02:22→16:06)
[2021-08-25] MEDS: TUBE FEEDING WATER FLUSH GT SCH ×7 (03:18→23:10)
[2021-08-25] MEDS: LEVOTHYROXINE SODIUM 100 MCG TABLET PO SCH (05:45)
[2021-08-25 06:52] LABS: Creatinine Clr Calc Pharmacy 89.5 ml/min; Est GFR (African American) 104.9 ml/min; Est GFR (Non-African American) 90.5 ml/min
--- NOTE | 2021-08-25 07:28 | Communication Note ---
Date of Service: August 25, 2021 830pm. sharp pain at peg site while feeding bolus peptamen. site is nonerythematous. Abd nontender and is not bloated. BMs: diarrhea. restarted at half rate 105/hr for 1.5 hours. said she had felt a bit full today. Patient declined the next bolus dose. If symptoms of fullness persist, consider venting peg tube. Antonio Go PGY2 night resident
[2021-08-25] MEDS: GABAPENTIN 100 MG CAP PO SCH ×2 (07:32→18:05)
[2021-08-25] MEDS: ACETAMINOPHEN 500 MG TAB PO PRN ×3 (07:32→21:59)
[2021-08-25] MEDS ORDERED: HYDROmorphone INJ 1 MG/ML SYRINGE IV PRN (08:09)
[2021-08-25] MEDS: PEPTAMEN 1.5 CAL 1,000 ML BAG PEG SCH ×5 (08:33→21:22)
[2021-08-25] MEDS: SENNA 8.6 MG TAB PO SCH (08:33)
[2021-08-25] MEDS: ENOXAPARIN INJ 40 MG/0.4 ML SYR SQ SCH (08:34)
[2021-08-25] MEDS: NYSTATIN SUSP 500,000 U/5 ML UDC PO SCH ×4 (08:34→21:03)
[2021-08-25] MEDS: DULoxetine HCL 60 MG CAP PO SCH (08:35)
[2021-08-25] MEDS: LIDOCAINE 5% 1 PATCH TD SCH (08:37)
[2021-08-25] MEDS: FLUTICASONE PROPIONATE NA SPR 16 GM BTL NAE SCH (08:38)
[2021-08-25] MEDS: buPROPion SR 100 MG TABCR PO SCH ×2 (08:40→21:03)
[2021-08-25 09:25] LABS: Basophils # (auto) 0.04 K/uL (0-0.2); Basophils % (auto) 0.5 %; Eosinophils # (auto) 0.05 K/uL (0-0.5); Eosinophils % (auto) 0.7 %; Hematocrit (blood only) 33.8 % (37-47); Hemoglobin 10.7 g/dL (12.0-16.0); Immature Granulocytes # (auto) 0.08 K/uL (0.00-0.02); Immature Granulocytes % (auto) 1.1 %; Mean Corpuscular Hemoglobin 31.2 pg (25-34); Mean Corpuscular Hgb Conc 31.7 g/dL (32-36); Mean Corpuscular Volume 98.5 fL (80-100); Mean Platelet Volume 9.3 fL (7.4-10.4); Monocytes # (auto) 0.79 K/uL (0.11-0.59); Monocytes % (auto) 10.6 %; Neutrophils # (auto) 5.92 K/uL (1.4-6.5); Neutrophils % (auto) 79.1 %; Platelet Count 464 K/uL (130-400); RDW Coefficient of Variation 18.2 % (11.5-14.5); RDW Standard Deviation 65.6 fL (36.4-46.3); Red Blood Count 3.43 M/uL (4.2-5.4); White Blood Count 7.48 K/uL (4.8-10.8)
[2021-08-25 09:26] LABS: BUN Creatinine Ratio 36.7 (10-20); Calcium 9.4 mg/dl (8.5-10.1); Est GFR (African American) 101.9 ml/min; Est GFR (Non-African American) 87.9 ml/min
[2021-08-25] MEDS: methylPREDNISolone 40 MG in SYRINGE 0 ML IV SCH (10:08)
[2021-08-25] MEDS: ONDANSETRON INJ 2 MG/ML 2 ML VIAL IV PRN (10:14)
--- NOTE | 2021-08-25 11:49 | Hospitalist Progress Note ---
Date of Service August 25, 2021 Assessment & Plan (1) Thoracic back pain: Plan: Pain is different from that she had at [facility]. Starts in the middle of her thoracic spine and then takes over her whole body. Longstanding help with chiropractor treatment for mid thoracic spine problems and would likely benefit from ongoing chiropractor care as outpatient Patient is known to have fibromyalgia and restless leg syndrome. Patient has been off her NSAIDs since she has had a PEG tube. However she has been on voltaren gel. Patient has britt also treated with OMT by the resident team while here, which has helped decrease the tightness of her paraspinal muscles of her thoracic spine. Restarted her Cymbalta on 08/20. Reordered gabapentin on 08/23 - likely this can continued to be uptitrated Initially on topical NSAID, but stopped this is lieu of celebrex on 08/22, now discontinued and on IV steroids - will restart this again today given worsening pain overnight Patient understands risks of PUD and is on PPI. Notably patient was on Dilaudid 1mg Q6H JOVANNI and PRN doses for breakthrough pain however patient reports that was more for burning pain while eating which she no longer has likely due to radiation causing stricture and esophageal candidiasis both of which was treated at [facility] Given worsening pain overnight will restart Dilaudid 1mg IV Q4H PRN for breakthrough pain and restart her IV solu-medrol. If steroids not helping and she continues to get pain suggest switching oxycodone as not effective to [place] or alternative opiate. Do not recommend long acting opiate at this time as pain comes on in significant waves and mostly resolves on good days. CK normal on lab work this morning however will discontinue statin regardless as may be contributing towards pain (2) Depressive disorder: Plan: Patient appears to have a component of anxiety/ and depression Holding of ativan given in her last hospital stay she was hallucinating. This is likely feeding into her pain as well. (3) Acute UTI: Plan: Acute UTI with improving urine and no leukocytosis or fevers but remaining with symptoms and left CVA tenderness - Ultrasound of bladder and kidneys - unremarkable - Pansensitive E. coli - initially switched Levaquin to Rocephin secondary to age, Due to rash, switched back to levaquin with end date today. - no specific urinary symptoms (4) Tongue cancer: Plan: S/P chemo and radiation therapy with prolonged stay - follows with [facility] - esophageal thrush treated with fluconazole at [facility] (5) Pain: Plan: Back pain primarily - Will add on lidocaine patch - tylenol - oxy 10mg P0 prn - Gabapentin - Consider adding narcotic patch if needed - Of note patient had delirium as well as drug induced parkinsonian side effects from [facility] - avoid anti-psychotics and metoclopramide (6) On enteral nutrition: Plan: On Jevity 1.5 - nutrition consulted appreciate assistance - free water may need to be added if po intake remains low- currently 60ml tid and with meds (7) Weakness: Plan: Continue with PT/OT (8) HLD (hyperlipidemia): Plan: Will hold statin if contributing towards pain as this was also a medication that she took last night but not the night before therefore unknown if contributing. (9) Hypothyroidism: Plan: TSH WNL Continue Synthroid (10) Thrush, oral: Plan: Magic Mouthwash and continue with nystatin -no definitive thrush on exam today (11) GERD (gastroesophageal reflux disease): Plan: Omeprazole switched to lansoprazole via PEG Plan: Diet - clear liquids as discussed with the patient - avoid acidic foods Dispo: return to [facility], once pain is improved. Admission and Anticipated Discharge Date Admission Date: August 20, 2021 Subjective Significant pain this morning. She reports started in the middle of her thoracic spine in the middle of the night, however now having pain from head to toe. Does not know what brought it on. Oxycodone did not significant change the pain severity. Feels best when sitting on the side of her bed but cannot get comfortable. Patient reviewed in the afternoon and doing significantly better. Unclear if dilaudid or re-introduction of steroids or just time helped her at this time. Review of Systems Review of Systems: All systems reviewed & are unremarkable except as noted in Subjective Physical Exam Constitutional: WD/WN, vitals as above Eyes: + anicteric sclerae; normal pupil size ENMT: external ear and nose normal, oropharynx normal Mouth: + tongue abnormality (yellow dry enlarged tongue papilla without other oral evidence of thrush) Respiratory: normal respiratory effort, lungs clear to auscultation Cardiovascular: RRR, no murmur, no edema Gastrointestinal (Abdomen): Percussion/Palpation: abdomen soft; abdomen nontender Musculoskeletal: no cyanosis or clubbing, extremities motor strength 5/5 Spine: + thoracic spinal tenderness (T6 central); no lumbar spinal tenderness and no paraspinal tenderness Skin: no rashes, warm and dry Neurologic: moves all extremities and awake; not confused Psychiatric: A+Ox3, euthymic affect Results & Data Results & Data ([facility]) Vital Signs (Past 12 Hours) Vital Signs Temp Pulse Resp BP Pulse Ox 08/25/21 08:03 112/74 08/25/21 07:30 36.7 C 85 16 94/56 L 96 PG Care Time/CCT Total # of Minutes Spent Total Time Spent with Patient: Total time spent is greater than 50% in coordination of care (as documented) at patient's floor/unit and/or counseling patient: Coding Level of Care Code 36080 Subseq Hosp Care Lvl 2 Diagnoses Thoracic back pain M54.6 Depressive disorder F32.A Acute UTI N39.0 Tongue cancer C02.9 Pain R52 On enteral nutrition Z78.9 Weakness R53.1 HLD (hyperlipidemia) E78.5 Hypothyroidism E03.9 Thrush, oral B37.0 GERD (gastroesophageal reflux disease) K21.9
[2021-08-25] MEDS: FIRST - Mouthwash BLM 119 ML PO SCH ×3 (13:18→21:03)
[2021-08-25] MEDS: levoFLOXacin 750 MG TAB PO SCH (18:53)
[2021-08-25] MEDS: LANSOPRAZOLE 30 MG SOLTAB PEG SCH (21:07)
[2021-08-25] MEDS: GABAPENTIN 250 MG/5 ML 470 ML BTL PO SCH (21:57)
[2021-08-26] MEDS: TUBE FEEDING WATER FLUSH GT SCH ×5 (03:48→19:54)
[2021-08-26] MEDS: LEVOTHYROXINE SODIUM 100 MCG TABLET PO SCH (06:04)
[2021-08-26] MEDS: ACETAMINOPHEN 500 MG TAB PO PRN ×4 (06:07→23:33)
[2021-08-26] MEDS: oxyCODONE HCL IR 5 MG TAB (IMMEDIATE RELEASE) PO PRN ×3 (06:09→18:09)
[2021-08-26] MEDS: methylPREDNISolone 40 MG in SYRINGE 0 ML IV SCH (08:18)
[2021-08-26] MEDS: GABAPENTIN 100 MG CAP PO SCH ×2 (08:18→17:09)
[2021-08-26] MEDS: NYSTATIN SUSP 500,000 U/5 ML UDC PO SCH ×4 (08:18→21:06)
[2021-08-26] MEDS: buPROPion SR 100 MG TABCR PO SCH ×2 (08:18→21:07)
[2021-08-26] MEDS: DULoxetine HCL 60 MG CAP PO SCH (08:19)
[2021-08-26] MEDS: SENNA 8.6 MG TAB PO SCH (08:19)
[2021-08-26] MEDS: LIDOCAINE VISCOUS 2% 15 ML UDC MT PRN ×2 (08:19→17:10)
[2021-08-26] MEDS: LIDOCAINE 5% 1 PATCH TD SCH (08:20)
[2021-08-26] MEDS: PEPTAMEN 1.5 CAL 1,000 ML BAG PEG SCH ×4 (08:20→21:10)
[2021-08-26] MEDS: FLUTICASONE PROPIONATE NA SPR 16 GM BTL NAE SCH (08:21)
[2021-08-26] MEDS: ENOXAPARIN INJ 40 MG/0.4 ML SYR SQ SCH (08:22)
[2021-08-26] MEDS: FIRST - Mouthwash BLM 119 ML PO SCH ×3 (08:26→21:05)
[2021-08-26] MEDS ORDERED: HYDROmorphone INJ 1 MG/ML SYRINGE IV PRN (11:54)
--- NOTE | 2021-08-26 12:00 | Hospitalist Progress Note ---
Date of Service August 26, 2021 Assessment & Plan (1) Thoracic back pain: Plan: Pain is different from that she had at [facility]. Starts in the middle of her thoracic spine and then takes over her whole body. Sometimes also in the cervical spine as well, with radiation all over. - Longstanding help with chiropractor treatment for mid thoracic spine problems and would likely benefit from ongoing chiropractor care as outpatient Patient is known to have fibromyalgia and restless leg syndrome. Patient has been off her NSAIDs since she has had a PEG tube. - Patient was also treated with OMT by the resident team while here on 08/21 - Restarted her Cymbalta on 08/20; presently at 120 mg. - Reordered gabapentin on 08/23 - likely this can continued to be uptitrated as able. - Initially on topical NSAID, but stopped this in lieu of Celebrex on 08/22, now discontinued and on IV steroids. - CK normal on lab work this morning however will discontinue statin regardless as may be contributing towards pain. - Restart celecoxib - Patient understands risks of PUD & renal issues and is on PPI. - Will get cervical MRI. Lower concern for anatomic issue, but did discuss with patient that we can complete spinal work-up given she is having some cervical spinal pain at this time. (2) Depressive disorder: Plan: Patient appears to have a component of anxiety/ and depression. Holding of Ativan given in her last hospital stay she was hallucinating. This is likely feeding into her pain as well. - Appreciate psychiatry consult (3) Acute UTI: Plan: Acute UTI with improving urine and no leukocytosis or fevers but remaining with symptoms and left CVA tenderness. Ultrasound of bladder and kidneys - un remarkable. - Finished abx in the hospital. (4) Tongue cancer: Plan: S/P chemo and radiation therapy with prolonged stay. Follows with [facility] [place]. - Esophageal thrush treated with fluconazole at [facility] [place] - O/p f/u (5) Pain: Plan: Back pain primarily. - See above (6) On enteral nutrition: Plan: On Jevity 1.5. - Nutrition consulted appreciate assistance - Free water may need to be adjusted if PO intake remains low- currently 60ml tid and with meds (7) Weakness: Plan: Continue with PT/OT (8) HLD (hyperlipidemia): Plan: - Holding statin if contributing towards pain as this was also a medication that she took last night but not the night before therefore unknown if contributing. (9) Hypothyroidism: Plan: TSH 2.7 this admission. - Continue Synthroid (10) Thrush, oral: Plan: - Continue Magic Mouthwash and nystatin. (11) GERD (gastroesophageal reflux disease): Plan: - Omeprazole switched to lansoprazole via PEG Admission and Anticipated Discharge Date Admission Date: August 20, 2021 Subjective Very sad today and discusses how she feels "hopeless" because she has not felt like she's getting any better over the last few weeks. She reports that the pain was severe this morning, this time in the cervical spine area rather than the lumbar area where it had previously been. The pain radiates all up and down the spine, and she reports it goes from the head down to the lower legs. Physical Exam Constitutional: WD/WN, vitals as above Eyes: EOM intact bilaterally; no conjunctival abnormality ENMT: external ear and nose normal, oropharynx normal Neck: trachea midline, no thyromegaly normal visual inspection Respiratory: normal respiratory effort, lungs clear to auscultation no respiratory distress Cardiovascular: RRR, no murmur, no edema Gastrointestinal (Abdomen): Inspection/Auscultation: abdomen normal to inspection; abdomen not distended Musculoskeletal: no cyanosis or clubbing, extremities motor strength 5/5 Skin: no rashes, warm and dry Neurologic: moves all extremities and awake Psychiatric: Orientation: alert, oriented to person and cooperative Affect: + tearful affect Results & Data Results & Data ([facility]) Vital Signs (Past 12 Hours) Vital Signs Temp Pulse Resp BP Pulse Ox 08/26/21 07:54 36.3 C L 89 16 131/81 94 PG Care Time/CCT Total # of Minutes Spent Total Time Spent with Patient: Total time spent is greater than 50% in coordination of care (as documented) at patient's floor/unit and/or counseling patient: Coding Level of Care Code 49467 Subseq Hosp Care Lvl 2 Diagnoses Thoracic back pain M54.6 Depressive disorder F32.A Acute UTI N39.0 Tongue cancer C02.9 Pain R52 On enteral nutrition Z78.9 Weakness R53.1 HLD (hyperlipidemia) E78.5 Hypothyroidism E03.9 Thrush, oral B37.0 GERD (gastroesophageal reflux disease) K21.9
--- NOTE | 2021-08-26 12:39 | Magnetic Resonance Report ---
MRI OF THE CERVICAL SPINE WITHOUT CONTRAST CLINICAL HISTORY: Neck pain with radiculopathy COMPARISON: MRI of the cervical spine October 27, 2006. TECHNIQUE: Utilizing a 1.5 Radha magnet and dedicated coil, multiplanar, multiecho imaging of the ce rvical spine was performed without IV contrast. FINDINGS: There is reversal of the normal cervical lordosis. Note is made of fusion of the C6 and C7 vertebral bodies. There is partial fusion of C3 and C4 vertebral bodies. There is no cervical spine fracture. T here is no suspicious marrow replacement. Cervical cord signal and caliber are normal. There is no in tracanalicular mass or fluid collection. Paravertebral soft tissues are unremarkable. Visualized port ions of the posterior fossa are unremarkable. C2-C3: The central canal is patent. There is moderate bilateral neural foraminal stenosis due to fac et arthrosis and uncovertebral hypertrophy. C3-C4: Central canal is patent. Severe right and mild left neural foraminal stenosis is noted due to facet arthrosis and uncovertebral hypertrophy. C4-C5: Mild posterior disc osteophyte complex effaces the ventral thecal sac. There is mild central canal stenosis. Moderate right and severe left neural foraminal stenosis is present. C5-C6: Minimal posterior disc osteophyte complex is present. There is no significant central canal s tenosis. Neural foramen are patent. C6-C7: Posterior osteophyte formation slightly effaces the ventral thecal sac. Neural foramen are pa tent. C7-T1: There is moderate disc space narrowing with posterior disc osteophyte complex which slightly effaces the ventral thecal sac. There is no significant central canal stenosis. Moderate left and mil d right neural foraminal stenosis is present IMPRESSION: 1. No acute abnormality within the cervical spine by MRI. 2. Fusion of the C6 and C7 vertebral bodies. Partial fusion of C3 and C4 vertebral bodies. 3. Reversal of the normal cervical lordosis. 4. Mild multilevel central canal stenosis. Severe multilevel neural foraminal stenosis, as detailed a sammie. ACT 112: Negative or not required by law. Electronically signed by: Mookie Brandt M.D. 08/26/2021 12:36 PM
[2021-08-26] MEDS: LANSOPRAZOLE 30 MG SOLTAB PEG SCH (21:04)
[2021-08-26] MEDS: CELECOXIB 100 MG CAP PO SCH (21:08)
[2021-08-26] MEDS: GABAPENTIN 250 MG/5 ML 470 ML BTL PO SCH (21:08)
[2021-08-27] MEDS: TUBE FEEDING WATER FLUSH GT SCH ×7 (00:31→22:36)
[2021-08-27] MEDS: oxyCODONE HCL IR 5 MG TAB (IMMEDIATE RELEASE) PO PRN ×4 (00:31→23:02)
[2021-08-27] MEDS: LEVOTHYROXINE SODIUM 100 MCG TABLET PO SCH (06:07)
[2021-08-27 06:16] LABS: Hematocrit (blood only) 33.9 % (37-47); Hemoglobin 10.8 g/dL (12.0-16.0); Mean Corpuscular Hemoglobin 31.3 pg (25-34); Mean Corpuscular Hgb Conc 31.9 g/dL (32-36); Mean Corpuscular Volume 98.3 fL (80-100); Mean Platelet Volume 9.4 fL (7.4-10.4); Platelet Count 466 K/uL (130-400); RDW Coefficient of Variation 17.8 % (11.5-14.5); RDW Standard Deviation 63.9 fL (36.4-46.3); Red Blood Count 3.45 M/uL (4.2-5.4); White Blood Count 8.14 K/uL (4.8-10.8)
[2021-08-27 06:37] LABS: Albumin Globulin Ratio 1.1 (0.9-2); Albumin Level 3.4 gm/dl (3.4-5.0); BUN Creatinine Ratio 47.5 (10-20); Bilirubin,Total 0.2 mg/dl (0.2-1.0); Calcium 9.3 mg/dl (8.5-10.1); Creatinine Clr Calc Pharmacy 83.4 ml/min; Est GFR (African American) 102.5 ml/min; Est GFR (Non-African American) 88.4 ml/min; Globulin 3.2 gm/dl (2.5-4.0); Potassium 4.1 mmol/L (3.5-5.1); Total Protein 6.6 gm/dl (6.0-8.3)
[2021-08-27] MEDS: GABAPENTIN 100 MG CAP PO SCH ×2 (07:39→17:22)
--- NOTE | 2021-08-27 08:52 | Pain Management Progress Note ---
Date of Service August 27, 2021 Assessment & Plan (1) Neuropathic pain: (2) Fibromyalgia: (3) Depressive disorder: (4) Thoracic back pain: (5) Tongue cancer: Plan: 1. Patient has failed a multitude of conservative measures in the past with multiple neuropathic pain medications and remains on Cymbalta and bupropion. Previous poor tolerance of Nucynta. Given her current dosing levels of Cymbalta and bupropion recommend against utilization of tramadol due to risk of serotonin syndrome and would recommend consideration of methadone. EKG noted to be appropriate on 08/23/2021. Would recommend initial dosing of methadone 2.5 mg p.o. every 12 hours with the understanding that this may take 5 to 7 days for effect. May utilize oxycodone during that timeframe then would recommend discontinuation of oxycodone. Patient would like to consider this option and discuss with her daughter prior to initiation. Should patient agree to trial would recommend monitoring her QTc interval with EKGs with dose changes and after initiation. 2. No interventional pain management recommended at this time. 3. Would not recommend any other changes to her medical regimen for pain at this time. 4. Please call with any questions. Admission and Anticipated Discharge Date Admission Date: August 20, 2021 Subjective 76-year-old female with a history of fibromyalgia and recent extended admission at [facility] for treatment of tongue cancer with radiation, chemotherapy (cisplatin), and PEG tube placement. She had significant pain in t he mouth and tongue region during this treatment and reported use of multiple opiate therapies upon that admission such as fentanyl, Dilaudid and oxycodone. She was subsequently discharged to [facility] after being weaned to oxycodone for discharge. She then developed severe back pain in the thoracic region on 08/16/2021 without known injury. She has some associated sweating, fevers and chills with subsequent diagnosis of UTI upon this admission. She has been on gabapentin 100 mg nightly recently titrated to 200 mg nightly upon this admission chronically for restless leg syndrome per her report. States that she has significant burning neuropathic pain throughout her entire body stating "it feels like [place] claws are digging into my body." Pain this morning is rated at 5 out of 10 ranging between 2-8 out of 10. She is unable to localize her pain more specifically though admits to some deep aching pain over her thoracic region. Previous interventions include Nucynta with side effect, OxyIR, OxyContin, tramadol, Celebrex, Voltaren, baclofen, Cymbalta 120 mg p.o. every morning, Lidoderm patch, Tylenol, gabapentin, fentanyl, hydromorphone, Wellbutrin. Patient denies bowel or bladder incontinence or saddle anesthesias. She has no radicular component to pain complaints or weaknesses in the lower extremity. She reports limited activity over the past few months due to her [facility] admission. Patient has no further constitutional complaints. She states she was able to sleep last evening fairly well due to melatonin dosing. Pain Assessment Pain Assessment Full Body Front + Back: 1. 2. [facility] Combined Pain Scale: 5-Moderate - Cannot perform normal tasks without increase in pain Results (Pain Clinic) Diagnostic Review MRI: non enhanced, reports reviewed and findings discussed with patient MRI Findings: 08/26/21 MRI OF THE CERVICAL SPINE WITHOUT CONTRAST CLINICAL HISTORY: Neck pain with radiculopathy COMPARISON: MRI of the cervical spine October 27, 2006. TECHNIQUE: Utilizing a 1.5 Radha magnet and dedicated coil, multiplanar, multiecho imaging of the cervical spine was performed without IV contrast. FINDINGS: There is reversal of the normal cervical lordosis. Note is made of fusion of the C6 and C7 vertebral bodies. There is partial fusion of C3 and C4 vertebral bodies. There is no cervical spine fracture. There is no suspicious marrow replacement. Cervical cord signal and caliber are normal. There is no intracanalicular mass or fluid collection. Paravertebral soft tissues are unremarkable. Visualized portions of the posterior fossa are unremarkable. C2-C3: The central canal is patent. There is moderate bilateral neural foraminal stenosis due to facet arthrosis and uncovertebral hypertrophy. C3-C4: Central canal is patent. Severe right and mild left neural foraminal stenosis is noted due to facet arthrosis and uncovertebral hypertrophy. C4-C5: Mild posterior disc osteophyte complex effaces the ventral thecal sac. There is mild central canal stenosis. Moderate right and severe left neural foraminal stenosis is present. C5-C6: Minimal posterior disc osteophyte complex is present. There is no significant central canal stenosis. Neural foramen are patent. C6-C7: Posterior osteophyte formation slightly effaces the ventral thecal sac. Neural foramen are patent. C7-T1: There is moderate disc space narrowing with posterior disc osteophyte complex which slightly effaces the ventral thecal sac. There is no significant central canal stenosis. Moderate left and mild right neural foraminal stenosis is present IMPRESSION: 1. No acute abnormality within the cervical spine by MRI. 2. Fusion of the C6 and C7 vertebral bodies. Partial fusion of C3 and C4 vertebral bodies. 3. Reversal of the normal cervical lordosis. 4. Mild multilevel central canal stenosis. Severe multilevel neural foraminal stenosis, as detailed above. 08/26/21 MRI OF THE THORACIC SPINE WITHOUT CONTRAST CLINICAL HISTORY: T6 central spinal tenderness. History of head and neck cancer. COMPARISON: Thoracic spine radiographs November 28, 2009. PET/CT May 02, 2021. TECHNIQUE: Utilizing a 1.5 Radha magnet and dedicated coil, multiplanar, multiecho imaging of the thoracic spine was performed without IV contrast. FINDINGS: Vertebral body heights are maintained. There is no suspicious marrow replacement within the thoracic spine. Marrow heterogeneity of the spine is likely within normal limits. No thoracic spine fracture is present. Thoracic cord signal and caliber are normal. There is no intrahepatic canalicular mass or fluid collection. Paravertebral soft tissues are unremarkable. Central canal and neural foramen within the thoracic spine are patent. The thoracic spine disc herniations are present. There is moderate disc space narrowing at T6-T7. There is also moderate disc space narrowing at T3-T4. C6-C7 fusion is incidentally noted. IMPRESSION: 1. No acute abnormality within the thoracic spine by MRI. 2. Patent central canal and neural foramen. 3. Normal thoracic cord signal and caliber. 4. Mild multilevel degenerative changes within the thoracic spine. 08/26/21 MR lumbar spine wo con CLINICAL HISTORY: 76 years-old Female with L3 central spinal tenderness. Acute low back pain COMPARISON: MRI thoracic spine of same day, renal ultrasound 08/20/2021. TECHNIQUE: Multiplanar, multi sequence MRI of the lumbar spine was performed without intravenous contrast. 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 No abdominal aortic aneurysm or adenopathy. There is atrophy of the paraspinal musculature. 6 mm anterolisthesis L4 on L5. 1.4 cm L3 vertebral body hemangioma. There is a septated 8.0 cm cystic structure within the deep pelvis which is partially imaged. Posterior interbody areli and screw fusion at L4-L5. No acute fracture, endplate erosion or marrow replacing p rocess. Dextroscoliosis of the lumbar spine of 13 degrees with apex at L3. T12-L1: There is [id number] intervertebral disc space narrowing with spondylitic spurring. Posterior annular disc bulge with mild facet arthrosis. The central canal and neural foramen are patent. L1-L2: Mild intervertebral disc space narrowing with spondylitic spurring and small posterior annular disc bulge. Ligamentum flavum thickening with moderate facet arthrosis. No central canal or neural foraminal narrowing. L2-L3: Spondylitic spurring with small posterior annular disc bulge. Moderate facet arthrosis. No central canal or neural foraminal narrowing. L3-L4: Moderate intervertebral disc space narrowing with spondylitic spurring and circumferential annular disc bulge. Ligamentum flavum thickening with severe facet arthrosis. Mild central canal stenosis with AP dimension of the thecal sac measuring 9 mm. Mild right with moderate left foraminal stenosis. L4-L5: Moderate intervertebral disc space narrowing with grade 1 anterolisthesis. Laminectomy with posterior interbody areli and screw fusion. S mall posterior annular disc bulge with disc space uncovering. The central canal is patent. Mild bilateral foraminal stenosis. L5-S1: Disc desiccation with mild spondylitic spurring and small circumf erential annular disc bulge. Trace facet effusions with moderate facet arthrosis. Laminectomy. The central canal and left neural foramen are patent. Mild to moderate right foraminal stenosis. IMPRESSION: 1. Prior L4-L5 laminectomy with L4-L5 posterior interbody areli and screw fusion. 2. Moderate intervertebral disc space narrowing at L3-L4 with mild central canal stenosis, mild right and moderate left foraminal narrowing. 3. Additional discogenic degeneration with spondylitic spurring and facet arthrosis as above. 4. Mid lumbar dextroscoliosis. 5. Partially imaged septated cystic lesion of the left adnexum measures up to 8 cm. Correlation with a nonemergent follow-up pelvic ultrasound recommended. Other Findings: 08/23/21 12 lead EKG Vent. Rate : 086 BPM Atrial Rate : 086 BPM P-R Int : 150 ms QRS Dur : 084 ms QT Int : 366 ms P-R-T Axes : 049 019 029 degrees QTc Int : 437 ms Normal sinus rhythm Normal ECG When compared with ECG of 23-AUG-2021 10:34, No significant change was found Previous Records Review Previous Records: personally reviewed by me Opioid Risk Assessment Opioid Risk Assessment: risk assessment performed and no issues identified
[2021-08-27] MEDS: buPROPion SR 100 MG TABCR PO SCH ×2 (09:06→20:27)
[2021-08-27] MEDS: CELECOXIB 100 MG CAP PO SCH (09:06)
[2021-08-27] MEDS: DULoxetine HCL 60 MG CAP PO SCH (09:06)
[2021-08-27] MEDS: NYSTATIN SUSP 500,000 U/5 ML UDC PO SCH ×4 (09:06→20:25)
[2021-08-27] MEDS: ENOXAPARIN INJ 40 MG/0.4 ML SYR SQ SCH (09:06)
[2021-08-27] MEDS: FLUTICASONE PROPIONATE NA SPR 16 GM BTL NAE SCH (09:07)
[2021-08-27] MEDS: FIRST - Mouthwash BLM 119 ML PO SCH ×3 (09:07→20:28)
[2021-08-27] MEDS: methylPREDNISolone 40 MG in SYRINGE 0 ML IV SCH (09:08)
[2021-08-27] MEDS: LIDOCAINE 5% 1 PATCH TD SCH (09:08)
[2021-08-27] MEDS: PEPTAMEN 1.5 CAL 1,000 ML BAG PEG SCH ×4 (09:16→20:41)
[2021-08-27] MEDS: SENNA 8.6 MG TAB PO SCH (09:22)
--- NOTE | 2021-08-27 11:55 | Hospitalist Progress Note ---
Date of Service August 27, 2021 Assessment & Plan (1) Thoracic back pain: Plan: Pain is different from that she had at [facility]. Starts in the middle of her thoracic spine and then takes over her whole body. Sometimes also in the cervical spine as well, with radiation all over. Sometimes not focal at all. - Longstanding help with chiropractor treatment for mid thoracic spine problems and would likely benefit from ongoing chiropractor care as outpatient. - Patient has been off her NSAIDs since she has had a PEG tube. - Patient was also treated with OMT by the resident team while here on 08/21. - Restarted her Cymbalta on 08/20; presently at 120 mg. - Reordered gabapentin on 08/23 - likely this can continued to be uptitrated as able. - Initially on topical NSAID, but stopped this in lieu of Celebrex on 08/22. - CK normal on lab work this morning however will discontinue statin regardless as may be contributing towards pain. - Cervical MRI done on 08/26 as some pain was now in the neck area; however, no acute findings, and no central canal stenosis. - Restarted celecoxib on 08/26; however, given the form of this pain, I think risks outweigh benefits. Stopped today. -> The etiology of her pain is not clear. It seems most likely neuropathic given its diffuse nature, tingling/burning sensations, and lack of anatomic etiology seen on full-spine MRI. Pain Management have been following and recommended methadone on 08/27 as last resort option. Patient was not willing to trial this at this time, but will speak with her daughter. Today, her pain is migrating, found all over, and she cannot pinpoint a single source, so I do not think that further imaging is warranted or would help us determine etiology or alter treatment options. - Taper steroids as they do not appear to be helpful. - Have contacted [place] to discuss with her oncologist (Laurie Marcano). Also consider palliative care consult. (2) Depressive disorder: Plan: Patient has a component of anxiety/ and depression. Holding of Ativan given in her last hospital stay she was hallucinating. This is likely feeding into her pain as well. - Appreciate psychiatry consult -> Today she is endorsing hopelessness and passive wish. RN contacted liaison to see patient. Appreciate their assistance. (3) Acute UTI: Plan: Acute UTI with improving urine and no leukocytosis or fevers but remaining with symptoms and left CVA tenderness. Ultrasound of bladder and kidneys - unremarkable. - Finished abx in the hospital. (4) Tongue cancer: Plan: S/P chemo and radiation therapy with prolonged stay. Follows with [facility]. I have call out to Laurie Marcano for further guidance. - Esophageal thrush treated with fluconazole at [facility] - O/p f/u (5) Pain: Plan: Back pain primarily, but now all over. - See above (6) On enteral nutrition: Plan: On Jevity 1.5. - Nutrition consulted appreciate assistance - Free water may need to be adjusted if PO intake remains low- currently 60ml tid and with meds (7) Weakness: Plan: Continue with PT/OT (8) HLD (hyperlipidemia): Plan: - Holding statin if contributing towards pain as this was also a medication that she took last night but not the night before therefore unknown if contributing. (9) Hypothyroidism: Plan: TSH 2.7 this admission. - Continue Synthroid (10) Thrush, oral: Plan: - Continue Magic Mouthwash and nystatin. (11) GERD (gastroesophageal reflux disease): Plan: - Omeprazole switched to lansoprazole via PEG (12) DVT prophylaxis: Plan: Lovenox 40 mg SC daily Admission and Anticipated Discharge Date Admission Date: August 20, 2021 Subjective Long talk with Ms. Boucher this morning. She is hopeless and feels that she wishes she were . She is very tearful and intermittently, our conversation is paused as she cries. She is very upset that methadone was proposed and is very fixated on it being the "last option" as treatment and how bad it feels to be told this is the last option. She reports she has not had a "good day" in months and that she is very angry she agreed to any cancer therapy at all. She postulates that if she had refused all treatment, she would probably be now and that would be better for her as her life is misery and would be better for her family as well because she is too big a burden on them. She feels she cannot make any decisions regarding her medical care. She reports that she does not understand this and needs to be told what to do, not offered options. She feels it is all too much to understand and cannot weigh the risks/benefits of any treatment options. She says that with methadone, she will not be able to drive and will be in her house all the time. She mourns the loss of her dog (which she says she will have to give away) and her cottage at [facility] which she loves. She feels [facility] is not treating her well and can't handle her medical issues. She asks to find a new oncologist and PCP in [place]. In describing her pain, it is very hard to pin down. She feels it is grasping pain. It is "all over." Sometimes, it is in the neck, sometimes it is in the lower back, sometimes it presents as nausea, and is "all over" her body. Yes terday, she reported hand numbness, but she does not report this this morning. I had heard report from the RN that she requested transfer to another hospital, but today, she will not engage with that idea and does not request transfer. I asked to call her daughter, but she declines saying that her daughter has "too much to handle." Physical Exam Constitutional: WD/WN, vitals as above Eyes: EOM intact bilaterally; no conjunctival abnormality ENMT: external ear and nose normal, oropharynx normal Neck: trachea midline, no thyromegaly normal visual inspection Respiratory: normal respiratory effort, lungs clear to auscultation no respiratory distress Cardiovascular: RRR, no murmur, no edema Gastrointestinal (Abdomen): Inspection/Auscultation: abdomen normal to inspection; abdomen not distended Musculoskeletal: no cyanosis or clubbing, extremities motor strength 5/5 Skin: no rashes, warm and dry Neurologic: moves all extremities and awake Psychiatric: Orientation: alert, oriented to person and cooperative Affect: + tearful affect Results & Data Results & Data ([facility]) Vital Signs (Past 12 Hours) Vital Signs Temp Pulse Resp BP Pulse Ox 08/27/21 07:25 36.9 C 75 16 118/74 92 PG Care Time/CCT Total # of Minutes Spent Total Time Spent with Patient: Total time spent is greater than 50% in coordination of care (as documented) at patient's floor/unit and/or counseling patient: Coding Level of Care Code 57681 Subseq Hosp Care Lvl 3 Diagnoses Thoracic back pain M54.6 Depressive disorder F32.A Acute UTI N39.0 Tongue cancer C02.9 Pain R52 On enteral nutrition Z78.9 Weakness R53.1 HLD (hyperlipidemia) E78.5 Hypothyroidism E03.9 Thrush, oral B37.0 GERD (gastroesophageal reflux disease) K21.9 DVT prophylaxis Z29.9
[2021-08-27] MEDS: ACETAMINOPHEN 500 MG TAB PO PRN (11:57)
[2021-08-27] MEDS: CALCIUM CARBONATE 500 MG CHEWABLE TAB PO PRN (20:25)
[2021-08-27] MEDS: LANSOPRAZOLE 30 MG SOLTAB PEG SCH (20:27)
[2021-08-27] MEDS: GABAPENTIN 250 MG/5 ML 470 ML BTL PO SCH (20:27)
[2021-08-28] MEDS: ACETAMINOPHEN 500 MG TAB PO PRN (03:10)
[2021-08-28] MEDS: TUBE FEEDING WATER FLUSH GT SCH ×5 (03:11→19:30)
[2021-08-28] MEDS: LEVOTHYROXINE SODIUM 100 MCG TABLET PO SCH (05:58)
[2021-08-28] MEDS: oxyCODONE HCL IR 5 MG TAB (IMMEDIATE RELEASE) PO PRN ×2 (05:58→12:24)
[2021-08-28] MEDS: GABAPENTIN 100 MG CAP PO SCH ×2 (07:38→17:57)
[2021-08-28 08:21] LABS: Hemoglobin 11.1 g/dL (12.0-16.0); Mean Corpuscular Hemoglobin 31.7 pg (25-34); Mean Corpuscular Hgb Conc 32.6 g/dL (32-36); Mean Corpuscular Volume 97.1 fL (80-100); Mean Platelet Volume 9.1 fL (7.4-10.4); Platelet Count 427 K/uL (130-400); RDW Coefficient of Variation 17.7 % (11.5-14.5); RDW Standard Deviation 62.8 fL (36.4-46.3); White Blood Count 7.93 K/uL (4.8-10.8)
[2021-08-28] MEDS: FIRST - Mouthwash BLM 119 ML PO SCH ×3 (08:38→21:29)
[2021-08-28] MEDS: buPROPion SR 100 MG TABCR PO SCH ×2 (08:38→21:29)
[2021-08-28] MEDS: methylPREDNISolone 4 MG TAB PO SCH (08:39)
[2021-08-28] MEDS: DULoxetine HCL 60 MG CAP PO SCH (08:39)
[2021-08-28] MEDS: FLUTICASONE PROPIONATE NA SPR 16 GM BTL NAE SCH (08:39)
[2021-08-28] MEDS: ENOXAPARIN INJ 40 MG/0.4 ML SYR SQ SCH (08:39)
[2021-08-28] MEDS: NYSTATIN SUSP 500,000 U/5 ML UDC PO SCH ×4 (08:39→21:29)
[2021-08-28 08:41] LABS: BUN Creatinine Ratio 48.3 (10-20); Calcium 9.5 mg/dl (8.5-10.1); Creatinine Clr Calc Pharmacy 84.8 ml/min; Est GFR (Non-African American) 88.9 ml/min; Magnesium 1.8 mg/dl (1.7-2.4); Potassium 3.9 mmol/L (3.5-5.1)
[2021-08-28] MEDS: LIDOCAINE 5% 1 PATCH TD SCH (08:41)
[2021-08-28] MEDS: PEPTAMEN 1.5 CAL 1,000 ML BAG PEG SCH ×4 (08:43→21:33)
[2021-08-28] MEDS: SENNA 8.6 MG TAB PO SCH (08:48)
[2021-08-28] MEDS: CALCIUM CARBONATE 500 MG CHEWABLE TAB PO PRN (10:26)
[2021-08-28] MEDS: LIDOCAINE VISCOUS 2% 15 ML UDC MT PRN (12:25)
[2021-08-28] MEDS ORDERED: METHADONE HCL 5 MG TAB PO ONE (14:00)
--- NOTE | 2021-08-28 14:28 | Hospitalist Progress Note ---
Date of Service August 28, 2021 Assessment & Plan (1) Thoracic back pain: Plan: Pain is different from that she had at [facility]. Starts in the middle of her thoracic spine and then takes over her whole body. Sometimes also in the cervical spine as well, with radiation all over. Sometimes not focal at all. - Longstanding help with chiropractor treatment for mid thoracic spine problems and would likely benefit from ongoing chiropractor care as outpatient. - Patient has been off her NSAIDs since she has had a PEG tube. - Patient was also treated with OMT by the resident team while here on 08/21. - Restarted her Cymbalta on 08/20; presently at 120 mg. - Reordered gabapentin on 08/23 - likely this can continued to be uptitrated as able. - Initially on topical NSAID, but stopped this in lieu of Celebrex on 08/22. - CK normal on lab work this morning however will discontinue statin regardless as may be contributing towards pain. - Cervical MRI done on 08/26 as some pain was now in the neck area; however, no acute findings, and no central canal stenosis. - Restarted celecoxib on 08/26; however, given the form of this pain, I think risks outweigh benefits. Stopped today. - Taper steroids as they do not appear to be helpful. - Spoke with Manasa Forrester MD PhD who will be her ongoing oncologist at [place]. She felt that chemotherapy-related neuropathy was possibly slightly less likely, but worth consideration. Patient is willing to try methadone, so we will start slowly wtih a single dose today. Monitor QTc. Plan to wean off oxycodone as able. (2) Depressive disorder: Plan: Patient has a component of anxiety/ and depression. Holding of Ativan given in her last hospital stay she was hallucinating. This is likely feeding into her pain as well. - Appreciate psychiatry consult -> Today she is in better spirits, but still endorsing hopelessness. Did ask Paige Mix to reach out to [place] regarding what resources they have available for support. (3) Acute UTI: Plan: Acute UTI with improving urine and no leukocytosis or fevers but remaining with symptoms and left CVA tenderness. Ultrasound of bladder and kidneys - unremarkable. - Finished abx in the hospital. (4) Tongue cancer: Plan: S/P chemo and radiation therapy with prolonged stay. Follows with [facility]. - Esophageal thrush treated with fluconazole at [facility] - O/p f/u (5) Pain: Plan: Back pain primarily, but now all over at times. - See above (6) On enteral nutrition: Plan: On Jevity 1.5. - Nutrition consulted appreciate assistance - Free water may need to be adjusted if PO intake remains low- currently 60ml tid and with meds (7) Weakness: Plan: Continue with PT/OT (8) HLD (hyperlipidemia): Plan: - Holding statin if contributing towards pain as this was also a medication that she took last night but not the night before therefore unknown if contributing. (9) Hypothyroidism: Plan: TSH 2.7 this admission. - Continue Synthroid (10) Thrush, oral: Plan: - Continue Magic Mouthwash and nystatin. (11) GERD (gastroesophageal reflux disease): Plan: - Omeprazole switched to lansoprazole via PEG (12) DVT prophylaxis: Plan: Lovenox 40 mg SC daily Admission and Anticipated Discharge Date Admission Date: August 20, 2021 Subjective Better spirits today. The pain is improving somewhat. Willing to try the methadone. Reports no fevers/chills, chest pain, shortness of breath, or vomiting. Physical Exam Constitutional: WD/WN, vitals as above Eyes: EOM intact bilaterally; no conjunctival abnormality ENMT: external ear and nose normal, oropharynx normal Neck: trachea midline, no thyromegaly normal visual inspection Respiratory: normal respiratory effort, lungs clear to auscultation no respiratory distress Cardiovascular: RRR, no murmur, no edema Gastrointestinal (Abdomen): Inspection/Auscultation: abdomen normal to inspection; abdomen not distended Musculoskeletal: no cyanosis or clubbing, extremities motor strength 5/5 Skin: no rashes, warm and dry Neurologic: moves all extremities and awake Psychiatric: Orientation: alert, oriented to person and cooperative Affect: + tearful affect Results & Data Results & Data ([facility]) Vital Signs (Past 12 Hours) Vital Signs Temp Pulse Pulse Resp BP Pulse Ox 08/28/21 10:52 36.7 C 96 H 16 120/76 96 08/28/21 08:32 36.6 C 121 H 16 121/73 86 L 08/28/21 08:03 36.7 C 86 12 124/80 95 PG Care Time/CCT Total # of Minutes Spent Total Time Spent with Patient: Total time spent is greater than 50% in coordination of care (as documented) at patient's floor/unit and/or counseling patient: Coding Level of Care Code 11264 Subseq Hosp Care Lvl 2 Diagnoses Thoracic back pain M54.6 Depressive disorder F32.A Acute UTI N39.0 Tongue cancer C02.9 Pain R52 On enteral nutrition Z78.9 Weakness R53.1 HLD (hyperlipidemia) E78.5 Hypothyroidism E03.9 Thrush, oral B37.0 GERD (gastroesophageal reflux disease) K21.9 DVT prophylaxis Z29.9
--- NOTE | 2021-08-28 16:14 | Electrocardiogram Report ---
Test Reason : Blood Pressure : / mmHG Vent. Rate : 101 BPM Atrial Rate : 101 BPM P-R Int : 138 ms QRS Dur : 082 ms QT Int : 324 ms P-R-T Axes : 045 037 048 degrees QTc Int : 420 ms Sinus tachycardia Otherwise normal ECG When compared with ECG of 23-AUG-2021 10:35, No significant change was found Confirmed by Miguel Victor ([id number]) on 08/28/2021 4:13:54 PM Referred By: REFERRED SELF Confirmed By:Miguel Victor
[2021-08-28] MEDS: LANSOPRAZOLE 30 MG SOLTAB PEG SCH (19:30)
[2021-08-28] MEDS ORDERED: PANTOprazole 40 MG TAB PO SCH (21:00)
[2021-08-28] MEDS: GABAPENTIN 250 MG/5 ML 470 ML BTL PO SCH (21:29)
[2021-08-29] MEDS: TUBE FEEDING WATER FLUSH GT SCH ×6 (04:02→20:42)
[2021-08-29] MEDS: LEVOTHYROXINE SODIUM 100 MCG TABLET PO SCH (06:29)
[2021-08-29 06:43] LABS: Hematocrit (blood only) 36.2 % (37-47); Hemoglobin 11.5 g/dL (12.0-16.0); Mean Corpuscular Hemoglobin 31.3 pg (25-34); Mean Corpuscular Hgb Conc 31.8 g/dL (32-36); Mean Corpuscular Volume 98.4 fL (80-100); Mean Platelet Volume 9.3 fL (7.4-10.4); Platelet Count 398 K/uL (130-400); RDW Coefficient of Variation 17.6 % (11.5-14.5); RDW Standard Deviation 63.7 fL (36.4-46.3); Red Blood Count 3.68 M/uL (4.2-5.4); White Blood Count 7.98 K/uL (4.8-10.8)
[2021-08-29] MEDS: oxyCODONE HCL IR 5 MG TAB (IMMEDIATE RELEASE) PO PRN ×2 (06:52→15:24)
[2021-08-29 07:09] LABS: BUN Creatinine Ratio 46.8 (10-20); Calcium 9.3 mg/dl (8.5-10.1); Creatinine Clr Calc Pharmacy 79.4 ml/min; Est GFR (African American) 100.8 ml/min; Magnesium 1.9 mg/dl (1.7-2.4); Potassium 4.1 mmol/L (3.5-5.1)
[2021-08-29] MEDS ORDERED: METHADONE HCL 5 MG TAB PO STA ×2 (08:35→12:14)
[2021-08-29] MEDS: DULoxetine HCL 60 MG CAP PO SCH (10:03)
[2021-08-29] MEDS: buPROPion SR 100 MG TABCR PO SCH ×2 (10:03→20:43)
[2021-08-29] MEDS: NYSTATIN SUSP 500,000 U/5 ML UDC PO SCH ×4 (10:04→20:43)
[2021-08-29] MEDS: methylPREDNISolone 4 MG TAB PO SCH (10:05)
[2021-08-29] MEDS: ENOXAPARIN INJ 40 MG/0.4 ML SYR SQ SCH (10:06)
[2021-08-29] MEDS: SENNA 8.6 MG TAB PO SCH (10:07)
[2021-08-29] MEDS: LIDOCAINE 5% 1 PATCH TD SCH (10:08)
[2021-08-29] MEDS: FLUTICASONE PROPIONATE NA SPR 16 GM BTL NAE SCH (10:09)
[2021-08-29] MEDS: FIRST - Mouthwash BLM 119 ML PO SCH ×3 (10:10→20:45)
[2021-08-29] MEDS: LIDOCAINE VISCOUS 2% 15 ML UDC MT PRN (10:10)
[2021-08-29] MEDS: PEPTAMEN 1.5 CAL 1,000 ML BAG PEG SCH ×4 (11:16→20:40)
[2021-08-29] MEDS: GABAPENTIN 100 MG CAP PO SCH ×2 (11:20→17:42)
--- NOTE | 2021-08-29 12:53 | Hospitalist Progress Note ---
Date of Service August 29, 2021 Assessment & Plan (1) Thoracic back pain: Plan: Pain is different from that she had at [facility]. Starts in the middle of her thoracic spine and then takes over her whole body. Sometimes also in the cervical spine as well, with radiation all over. Sometimes not focal at all. - Longstanding help with chiropractor treatment for mid thoracic spine problems and would likely benefit from ongoing chiropractor care as outpatient. - Patient has been off her NSAIDs since she has had a PEG tube. - Patient was also treated with OMT by the resident team while here on 08/21. - Restarted her Cymbalta on 08/20; presently at 120 mg. - Reordered gabapentin on 08/23 - likely this can continued to be uptitrated as able. - Initially on topical NSAID, but stopped this in lieu of Celebrex on 08/22. - CK normal on lab work this morning however will discontinue statin regardless as may be contributing towards pain. - Cervical MRI done on 08/26 as some pain was now in the neck area; however, no acute findings, and no central canal stenosis. - Restarted celecoxib on 08/26; however, given the form of this pain, I think risks outweigh benefits. Stopped today. - Taper steroids as they do not appear to be helpful. - Spoke with Manasa Forrester MD PhD who will be her ongoing oncologist at [place]. She felt that chemotherapy-related neuropathy was possibly slightly less likely, but worth consideration. -> Started on methadone on 08/28 with good effect. Had some sweating, but otherwise tolerated it well. (2) Depressive disorder: Plan: Patient has a component of anxiety/ and depression. Holding of Ativan given in her last hospital stay she was hallucinating. This is likely feeding into her pain as well. - Appreciate psychiatry consult -> Today she is in better spirits, but still endorsing hopelessness. Did ask Paige Mix to reach out to [place] regarding what resources they have available for support. Sounds like they have an in-person and Zoom support groups. (3) Acute UTI: Plan: Acute UTI with improving urine and no leukocytosis or fevers but remaining with symptoms and left CVA tenderness. Ultrasound of bladder and kidneys - unremarkable. - Finished abx in the hospital. (4) Tongue cancer: Plan: S/P chemo and radiation therapy with prolonged stay. [place] [facility] - Esophageal thrush treated with fluconazole [place] [facility] - O/p f/u (5) Pain: Plan: Back pain primarily, but now all over at times. - See above (6) On enteral nutrition: Plan: On Jevity 1.5. - Nutrition consulted appreciate assistance - Free water may need to be adjusted if PO intake remains low- currently 60ml tid and with meds (7) Weakness: Plan: Continue with PT/OT (8) HLD (hyperlipidemia): Plan: - Holding statin if contributing towards pain as this was also a medication that she took last night but not the night before therefore unknown if contributing. (9) Hypothyroidism: Plan: TSH 2.7 this admission. - Continue Synthroid (10) Thrush, oral: Plan: - Continue Magic Mouthwash and nystatin. (11) GERD (gastroesophageal reflux disease): Plan: - Omeprazole switched to lansoprazole via PEG (12) DVT prophylaxis: Plan: Lovenox 40 mg SC daily Admission and Anticipated Discharge Date Admission Date: August 20, 2021 Subjective Doing some better today. Very much felt that the methadone was helpful, but then had significant sweating afterward. Some transient flushing of the neck, but this went away without any intervention. Reports no fevers/chills, chest pain, shortness of breath, abdominal pain, nausea, or vomiting. Physical Exam Constitutional: WD/WN, vitals as above Eyes: EOM intact bilaterally; no conjunctival abnormality ENMT: external ear and nose normal, oropharynx normal Neck: trachea midline, no thyromegaly normal visual inspection Respiratory: normal respiratory effort, lungs clear to auscultation no respiratory distress Cardiovascular: RRR, no murmur, no edema Gastrointestinal (Abdomen): Inspection/Auscultation: abdomen normal to inspection; abdomen not distended Musculoskeletal: no cyanosis or clubbing, extremities motor strength 5/5 Skin: no rashes, warm and dry Neurologic: moves all extremities and awake Psychiatric: Orientation: alert, oriented to person and cooperative Affect: + tearful affect Results & Data Results & Data ([facility]) Vital Signs (Past 12 Hours) Vital Signs Temp Pulse Resp BP Pulse Ox 08/29/21 07:50 36.7 C 57 L 20 111/72 98 PG Care Time/CCT Total # of Minutes Spent Total Time Spent with Patient: Total time spent is greater than 50% in coordination of care (as documented) at patient's floor/unit and/or counseling patient: Coding Level of Care Code 40689 Subseq Hosp Care Lvl 2 Diagnoses Thoracic back pain M54.6 Depressive disorder F32.A Acute UTI N39.0 Tongue cancer C02.9 Pain R52 On enteral nutrition Z78.9 Weakness R53.1 HLD (hyperlipidemia) E78.5 Hypothyroidism E03.9 Thrush, oral B37.0 GERD (gastroesophageal reflux disease) K21.9 DVT prophylaxis Z29.9
[2021-08-29] MEDS: ACETAMINOPHEN 500 MG TAB PO PRN (14:22)
[2021-08-29] MEDS: LANSOPRAZOLE 30 MG SOLTAB PEG SCH (20:39)
[2021-08-29] MEDS: GABAPENTIN 250 MG/5 ML 470 ML BTL PO SCH (20:54)
[2021-08-29] MEDS: METHADONE HCL 5 MG TAB PO SCH (21:00)
[2021-08-30] MEDS: TUBE FEEDING WATER FLUSH GT SCH ×7 (00:22→23:21)
[2021-08-30] MEDS: LEVOTHYROXINE SODIUM 100 MCG TABLET PO SCH (05:51)
--- NOTE | 2021-08-30 07:02 | Electrocardiogram Report ---
Test Reason : Blood Pressure : / mmHG Vent. Rate : 092 BPM Atrial Rate : 092 BPM P-R Int : 140 ms QRS Dur : 080 ms QT Int : 338 ms P-R-T Axes : 045 036 044 degrees QTc Int : 417 ms Normal sinus rhythm Normal ECG When compared with ECG of 28-AUG-2021 14:04, No significant change was found Confirmed by Gildardo Del Rio ([id number]) on 08/30/2021 7:02:02 AM Referred By: REFERRED SELF Confirmed By:Gildardo Del Rio
--- NOTE | 2021-08-30 09:28 | Electrocardiogram Report ---
Test Reason : Blood Pressure : / mmHG Vent. Rate : 093 BPM Atrial Rate : 093 BPM P-R Int : 136 ms QRS Dur : 076 ms QT Int : 340 ms P-R-T Axes : 037 001 013 degrees QTc Int : 422 ms Normal sinus rhythm Minimal voltage criteria for LVH, may be normal variant Borderline ECG When compared with ECG of 29-AUG-2021 06:24, No significant change was found Confirmed by Miguel Victor ([id number]) on 08/30/2021 9:27:59 AM Referred By: REFERRED SELF Confirmed By:Miguel Victor
[2021-08-30] MEDS: METHADONE HCL 5 MG TAB PO SCH ×2 (09:53→21:26)
[2021-08-30] MEDS: ENOXAPARIN INJ 40 MG/0.4 ML SYR SQ SCH (09:53)
[2021-08-30] MEDS: LIDOCAINE 5% 1 PATCH TD SCH (09:55)
[2021-08-30] MEDS: FLUTICASONE PROPIONATE NA SPR 16 GM BTL NAE SCH (09:56)
[2021-08-30] MEDS: methylPREDNISolone 4 MG TAB PO SCH (09:57)
[2021-08-30] MEDS: DULoxetine HCL 60 MG CAP PO SCH (09:57)
[2021-08-30] MEDS: GABAPENTIN 100 MG CAP PO SCH ×2 (09:58→17:56)
[2021-08-30] MEDS: SENNA 8.6 MG TAB PO SCH (09:58)
[2021-08-30] MEDS: FIRST - Mouthwash BLM 119 ML PO SCH ×3 (09:59→21:27)
[2021-08-30] MEDS: PEPTAMEN 1.5 CAL 1,000 ML BAG PEG SCH ×4 (09:59→21:27)
[2021-08-30] MEDS: buPROPion SR 100 MG TABCR PO SCH ×2 (09:59→21:26)
[2021-08-30] MEDS: CALCIUM CARBONATE 500 MG CHEWABLE TAB PO PRN (10:57)
[2021-08-30] MEDS: ACETAMINOPHEN 500 MG TAB PO PRN (14:23)
--- NOTE | 2021-08-30 15:39 | Hospitalist Progress Note ---
Date of Service August 30, 2021 Assessment & Plan (1) Thoracic back pain: Plan: Pain is different from that she had at [facility]. Starts in the middle of her thoracic spine and then takes over her whole body. Sometimes also in the cervical spine as well, with radiation all over. Sometimes not focal at all. - Longstanding help with chiropractor treatment for mid thoracic spine problems and would likely benefit from ongoing chiropractor care as outpatient. - Patient has been off her NSAIDs since she has had a PEG tube. - Patient was also treated with OMT by the resident team while here on 08/21. - Restarted her Cymbalta on 08/20; presently at 120 mg. - Reordered gabapentin on 08/23 - likely this can continued to be uptitrated as able. - Initially on topical NSAID, but stopped this in lieu of Celebrex on 08/22. - CK normal on lab work this morning however will discontinue statin regardless as may be contributing towards pain. - Cervical MRI done on 08/26 as some pain was now in the neck area; however, no acute findings, and no central canal stenosis. - Restarted celecoxib on 08/26; however, given the form of this pain, I think risks outweigh benefits. Stopped today. - Taper steroids as they do not appear to be helpful. - Spoke with Manasa Forrester MD PhD who will be her ongoing oncologist at [place]. She felt that chemotherapy-related neuropathy was possibly slightly less likely, but worth consideration. -> Started on methadone on 08/28 with good effect. Had some sweating the first day, but otherwise tolerated it well. Has not needed nearly as much oxycodone since then. (2) Depressive disorder: Plan: Patient has a component of anxiety/ and depression. Holding of Ativan given in her last hospital stay she was hallucinating. This is likely feeding into her pain as well. - Appreciate psychiatry consult -> Today she is in better spirits, but still endorsing hopelessness. Did ask Paige Mix to reach out to [place] regarding what resources they have available for support. Sounds like they have an in-person and Zoom support groups. (3) Acute UTI: Plan: Acute UTI with improving urine and no leukocytosis or fevers but remaining with symptoms and left CVA tenderness. Ultrasound of bladder and kidneys - unremarkable. - Finished abx in the hospital. (4) Tongue cancer: Plan: S/P chemo and radiation therapy with prolonged stay. [place] [facility] - Esophageal thrush treated with fluconazole at [facility] - O/p f/u (5) Pain: Plan: Back pain primarily, but now all over at times. - See above (6) On enteral nutrition: Plan: On Jevity 1.5. - Nutrition consulted appreciate assistance - Free water may need to be adjusted if PO intake remains low- currently 60ml tid and with meds (7) Weakness: Plan: Continue with PT/OT (8) HLD (hyperlipidemia): Plan: - Holding statin if contributing towards pain as this was also a medication that she took last night but not the night before therefore unknown if contributing. (9) Hypothyroidism: Plan: TSH 2.7 this admission. - Continue Synthroid (10) Thrush, oral: Plan: - Continue Magic Mouthwash and nystatin. (11) GERD (gastroesophageal reflux disease): Plan: - Omeprazole switched to lansoprazole via PEG (12) DVT prophylaxis: Plan: Lovenox 40 mg SC daily Admission and Anticipated Discharge Date Admission Date: August 20, 2021 Subjective Doing well today. Has not needed any oxycodone for the entire day. Still quite concerned about transition to [place]. Physical Exam Constitutional: WD/WN, vitals as above Eyes: EOM intact bilaterally; no conjunctival abnormality ENMT: external ear and nose normal, oropharynx normal Neck: trachea midline, no thyromegaly normal visual inspection Respiratory: normal respiratory effort, lungs clear to auscultation no respiratory distress Cardiovascular: RRR, no murmur, no edema Gastrointestinal (Abdomen): Inspection/Auscultation: abdomen normal to ins pection; abdomen not distended Musculoskeletal: no cyanosis or clubbing, extremities motor strength 5/5 Skin: no rashes, warm and dry Neurologic: moves all extremities and awake Psychiatric: Orientation: alert, oriented to person and cooperative Affect: + tearful affect Results & Data Results & Data ([facility]) Vital Signs (Past 12 Hours) Vital Signs Temp Pulse Resp BP Pulse Ox 08/30/21 08:03 36.6 C 91 H 18 110/75 96 PG Care Time/CCT Total # of Minutes Spent Total Time Spent with Patient: Total time spent is greater than 50% in coordination of care (as documented) at patient's floor/unit and/or counseling patient: Coding Level of Care Code 19394 Subseq Hosp Care Lvl 2 Diagnoses Thoracic back pain M54.6 Depressive disorder F32.A Acute UTI N39.0 Tongue cancer C02.9 Pain R52 On enteral nutrition Z78.9 Weakness R53.1 HLD (hyperlipidemia) E78.5 Hypothyroidism E03.9 Thrush, oral B37.0 GERD (gastroesophageal reflux disease) K21.9 DVT prophylaxis Z29.9
[2021-08-30] MEDS: oxyCODONE HCL IR 5 MG TAB (IMMEDIATE RELEASE) PO PRN (17:55)
[2021-08-30] MEDS: LANSOPRAZOLE 30 MG SOLTAB PEG SCH (21:27)
[2021-08-30] MEDS ORDERED: GABAPENTIN 100 MG CAP PO SCH (21:30)
[2021-08-31] MEDS: TUBE FEEDING WATER FLUSH GT SCH ×3 (03:37→11:26)
[2021-08-31] MEDS: LEVOTHYROXINE SODIUM 100 MCG TABLET PO SCH (06:06)
[2021-08-31 07:48] VITALS: BP 115/74; TEMP 98.6; O2SAT 98
[2021-08-31] MEDS: FLUTICASONE PROPIONATE NA SPR 16 GM BTL NAE SCH (08:52)
[2021-08-31] MEDS: GABAPENTIN 100 MG CAP PO SCH (08:53)
[2021-08-31] MEDS: buPROPion SR 100 MG TABCR PO SCH (08:53)
[2021-08-31] MEDS: SENNA 8.6 MG TAB PO SCH (08:54)
[2021-08-31] MEDS: ENOXAPARIN INJ 40 MG/0.4 ML SYR SQ SCH (08:54)
[2021-08-31] MEDS: DULoxetine HCL 60 MG CAP PO SCH (08:54)
[2021-08-31] MEDS: methylPREDNISolone 4 MG TAB PO SCH (08:55)
[2021-08-31] MEDS: METHADONE HCL 5 MG TAB PO SCH (09:07)
[2021-08-31] MEDS: LIDOCAINE 5% 1 PATCH TD SCH (09:09)
[2021-08-31] MEDS: FIRST - Mouthwash BLM 119 ML PO SCH (09:10)
[2021-08-31] MEDS: PEPTAMEN 1.5 CAL 1,000 ML BAG PEG SCH (09:11)
[2021-08-31] MEDS: ACETAMINOPHEN 500 MG TAB PO PRN (10:36)
[2021-08-31 11:31] VITALS: PULSE 92
--- NOTE | 2021-08-31 12:01 | Discharge Summary ---
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 Patient comes to the EMD today for complaints of continued fatigue, back pain, fevers, chills in the setting of E.COLI UTI- awaiting sensitivities - started on Levaquin- received 1 dose. Patient is Resident of [facility]. Patient had routine labs sent to include PCT, UA, and blood cultures. Her urine is improved looking, and her PCT is <0.05, without objec tive fever- remains with symptoms and CVA tenderness of the left side. Patient will be observed for pyelo rule out- with ultrasound- and await sensitivities. The patient just returned from [facility] where she was diagnosed with SCC of the tongue- underwent radiation and chemotherapy and dilation of her esophagus with PEG tube placement on 07/23. Radiation therapy was discontinued on 08/01 secondary to pain. Her oral intake remains low secondary to pain with swallowing and receives Jevity 1.5 - 2 cans TID bolus feeds. She is tolerating these without emesis but is associate with nausea and changes in her stools. She has some thrush and suffered from mucositis as well- symptoms improved with magic mouthwash and nystatin swish and spit. She is still having pain, but this worsened over the weekend prompting UA as above. Principal Diagnosis Neuropathic pain - Possibly due to chemotherapy and radiation from her cancer treatment Mucositis Discharge Exam Constitutional WD/WN, vitals as above Eyes EOM intact bilaterally; no conjunctival abnormality ENMT external ear and nose normal, oropharynx normal Mouth / Teeth: 1. Pale, shallow ulceration Neck trachea midline, no thyromegaly normal visual inspection Respiratory normal respiratory effort, lungs clear to auscultation no respiratory distress Cardiovascular RRR, no murmur, no edema Gastrointestinal (Abdomen) Inspection/Auscultation: abdomen normal to inspection; abdomen not distended Musculoskeletal no cyanosis or clubbing, extremities motor strength 5/5 Skin no rashes, warm and dry Neurologic moves all extremities and awake Psychiatric Orientation: alert, oriented to person and cooperative Discharge Data Allergies Allergy/AdvReac Type Severity Reaction Status Date / Time morphine Allergy Mild Rash Verified 08/19/21 23:35 Iodinated Contrast Media Allergy Unknown CONTRAST Verified 08/19/21 21:20 ALLERGY Penicillins Allergy Unknown Unknown Verified 08/19/21 23:35 shellfish derived Allergy Unknown DIGESTIVE Unverified 08/19/21 21:20 ISSUES Sulfa (Sulfonamide Allergy Unknown Unknown Verified 08/19/21 23:35 Antibiotics) Corticosteroids AdvReac Unknown PVC's Verified 08/19/21 23:35 (Glucocorticoids) NSAIDS (Non-Steroidal AdvReac Unknown Could lead Unverified 08/19/21 21:21 Anti-Inflamma to bleeding with past surgical history tapentadol [From Nucynta] AdvReac Redness of Verified 08/21/21 19:14 Skin Consultations 08/19/21 20:53 ED Decision to Admit Stat 08/20/21 11:46 Consult Health Information Management Routine 08/20/21 12:07 Consult Pain Management Routine 08/23/21 11:11 Consult Psychiatry Routine Ordered Studies 08/19/21 23:15 US renal/blad retro comp Routine 08/24/21 12:08 MR lumbar spine wo con Routine MR thoracic spine wo con Routine 08/26/21 09:25 MR cervical spine wo con Routine Hospital Course (1) Thoracic back pain: Pain is different from that she had at [facility]. Starts in the middle of her thoracic spine and then takes over her whole body. Sometimes also in the cervical spine as well, with radiation all over. Sometimes not focal at all. - Longstanding help with chiropractor treatment for mid thoracic spine problems. - Patient has been off her NSAIDs since she has had a PEG tube. - Patient was also treated with OMT by the resident team while here on 08/21. - Restarted her Cymbalta on 08/20; presently at 120 mg. She has been on this dose for many years per patient with her psychiatrist following. - Reordered gabapentin on 08/23 - likely this can continued to be uptitrated as needed. - Initially on topical NSAID, but stopped this in lieu of Celebrex on 08/22. However, Celebrex also stopped as it did not help pain at all. - Cervical MRI done on 08/26 as some pain was in the neck area; however, no acute findings, and no central canal stenosis. - Tapered steroids as they do not appear to be helpful. Will get small dose from her dexamethasone from her mouth rinse. - Spoke with Manasa Forrester MD PhD who will be her ongoing oncologist at [place]. She felt that chemotherapy-related neuropathy was possibly slightly less likely, but worth consideration. -> Started on methadone on 08/28 with good effect. Had some sweating the first day, but otherwise tolerated it well. Has not needed nearly as much oxycodone since then. -> On discharge, her regimen has been stable for 3 days and is having good effect without any side effects (sedation, itching, rash, etc). Labs and QTc were stable throughout: * Methadone 2.5 mg PO BID * Gabapentin 100 mg PO QAM, 100 mg PO with dinner, & 200 mg PO HS * Duloxetine 120 mg PO QAM * Bupropion SR 100 mg PO BID * Oxycodone 5 mg PO TID PRN for breakthrough pain (only needing about 1 dose per day) - I would make changes very gradually as the patient was very sensitive to changes and was quite anxious with any medication changes. (2) Depressive disorder: Patient has a component of anxiety/ and depression. Holding of Ativan given in her last hospital stay she was hallucinating. This is likely feeding into her pain as well. - Appreciate psychiatry consult -> Today she is in better spirits. [facility] has an in-person and Zoom support johny cabrera for head and neck cancer, and she was given number and email for this. (3) Acute UTI: Acute UTI with improving urine and no leukocytosis or fevers but remaining with symptoms and left CVA tenderness. Ultrasound of bladder and kidneys - unremarkable. - Finished abx in the hospital. (4) Tongue cancer: S/P chemo and radiation therapy with prolonged stay. Follows with [facility]. - Esophageal thrush treated with fluconazole at [facility] - On discharge day, she noted painful ulcer on the right side of her tongue. 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 Dexamethasone 10 mL swish and spit QID until seen by them. -> F/u with Dr. Cheema on 09/24. (5) Pain: Back pain primarily, but now all over at times. - See above (6) On enteral nutrition: On Jevity 1.5. - Nutrition consulted appreciate assistance - Free water may need to be adjusted if PO intake remains low- currently 60ml ti d and with meds (7) Weakness: Continue with PT/OT (8) HLD (hyperlipidemia): - Held statin some while inpatient, but continue now. (9) Hypothyroidism: TSH 2.7 this admission. - Continue Synthroid (10) Thrush, oral: - Continue Magic Mouthwash. Finished Nystatin - Dexamethasone swish and spit as above for mucositis. (11) GERD (gastroesophageal reflux disease): - Omeprazole switched to lansoprazole via PEG while here. - Return to oral PPI on d/c. (12) DVT prophylaxis: Lovenox 40 mg SC daily Total Time Total Time Spent Total Time Spent (In Minutes): 45 Discharge Plan Discharge Items Patient Disposition: Transfer Long-Term Fac Reason For Visit: FEVERS, CHILLS, FATIGUE- UTI WITH SPECIFICITIES Discharge Diagnosis: UTI Back pain Condition on Discharge: Good Activity: Resume your previous activity Non-emergency contact: Primary Care Provider and Oncologist Call non-emergency contact if: your symptoms worsen and your temperature is above 101 Follow-up/Referrals: Ekaterina Bailey DO [Physician] - (Please see Dr. Bailey in the office in 1-2 weeks for follow-up on your pain.) Jonas Kan [Primary Care Provider] - Zakia Cheema MD [Physician] - 09/24/21 11:30 am ([facility]) Manasa Forrester MD [Outside Practitioners] - 09/11/21 4:40 pm Diet: Regular Addtl Attending Provider Instructions: Ms. Boucher, Rafael were admitted to the hospital with a UTI, but also with significant back and neck pain. The UTI was treated with antibiotics, and you finished them before being discharged. Your back and neck pain were difficult to treat, and we had the help of Pain Management while you were here in the hospital. We reached a good medication regimen that has really helped your pain and will continue to help you over the next days and weeks. For your tongue pain, the ENT recommended using dexamethasone swish and spit. You do it 4 times per day. Hold it in your mouth for 2 minutes (swishing), then spit it out. Because we will use this, you don't need any systemic steroids. I d o not think they will help further. You also had some concerns about who will help you coordinate care in the coming weeks. I do think that continuing to see the specialists at [place] will help. Manasa Forrester MD can see you September 11 to be sure you are doing well. [facility] also has an in-person and Zoom support group that is meeting on September 16, and I encourage you to be a part of that. For more information, call [phone] e-mailHead and Neck Support Group ([email or web address]). Pending Studies at Discharge: No Stand-Alone Forms: My [facility] Skilled Items Patient informed of condition?: Yes DNR: Yes Discharge Level of Care: Skilled Communicable Disease: No Discharge Prognosis: Improving Lines: None Urinary Catheter: No Medications and DC Order Prescriptions: New duloxetine 60 mg Capsule,Delayed Release(Dr/Ec) 120 mg PO QAM Qty: 0 RF: 0 lidocaine HCl [Lidocaine Viscous] 2 % Solution 15 ml MT Q2H PRN (Reason: mouth pain) Qty: 100 RF: 0 gabapentin 100 mg capsule 200 mg PO HS Qty: 2 RF: 0 dexamethasone 0.5 mg/5 mL elixir 1 mg PO Q6H Qty: 237 RF: 1 methadone 5 mg tablet 2.5 mg PO Q12H Qty: 7 RF: 0 oxycodone 5 mg capsule 5 mg PO TID PRN (Reason: pain) Qty: 7 RF: 0 Continued levothyroxine [Synthroid] 100 mcg tablet 100 mcg PO QAM RF: 0 omeprazole 20 mg capsule,delayed release(DR/EC) 20 mg PO PM RF: 0 rosuvastatin [Crestor] 5 mg tablet 5 mg PO [id number] RF: 0 bupropion HCl [Wellbutrin SR] 100 mg tablet sustained-release 12 hr 100 mg PO QAM RF: 0 acetaminophen [Tylenol Extra Strength] 500 mg Tablet 500 mg PO Q6H PRN (Reason: Pain) RF: 0 cholecalciferol (vitamin D3) [Vitamin D3] 50 mcg (2,000 unit) Tablet 50 mcg PO QAM RF: 0 fluticasone propionate 50 mcg/actuation [place],Suspension 2 spray INTRANASAL QAM RF: 0 Changed gabapentin [Neurontin] 100 mg capsule 100 mg PO BID Qty: 0 RF: 0 Discontinued oxycodone 5 mg tablet 5 mg PO DIRECTED PRN (Reason: Pain) RF: 0 Discharge Orders: Discharge Order (Routine); Ordered 08/31/21 Ordered By: Manjinder Martinez/Other Patient Handouts: Relieving Back Pain, Anatomy of a Normal Spine, Deepa Infection: Thrush Admission Data Admit Date/Time: 08/20/21 16:49 Attending Provider: Manjinder Mix Admit Provider: Bev Holland Primary Care Provider: Jonas Kan Other Providers: Ekaterina Bailey ; Rebecca Hernandez ; Trista Palmer ; Kathryn Garcia ; Manjinder Mix Other Interventions: Discharge Summary Assessment (RN) Last Done: 08/31/21 11:30 Coding Level of Care Code D/C DAY MANAGEMENT >30 MINS Diagnoses Thoracic back pain M54.6 Depressive disorder F32.A Acute UTI N39.0 Tongue cancer C02.9 Pain R52 On enteral nutrition Z78.9 Weakness R53.1 HLD (hyperlipidemia) E78.5 Hypothyroidism E03.9 Thrush, oral B37.0 GERD (gastroesophageal reflux disease) K21.9 DVT prophylaxis Z29.9
--- NOTE | 2021-09-01 12:35 | Electrocardiogram Report ---
Test Reason : Blood Pressure : / mmHG Vent. Rate : 087 BPM Atrial Rate : 087 BPM P-R Int : 140 ms QRS Dur : 084 ms QT Int : 358 ms P-R-T Axes : 027 009 019 degrees QTc Int : 430 ms Normal sinus rhythm Normal ECG When compared with ECG of 30-AUG-2021 05:56, No significant change was found Confirmed by Gildardo Del Rio ([id number]) on 09/01/2021 12:34:57 PM Referred By: REFERRED SELF Confirmed By:Gildardo Del Rio
== END 2021-08-31 13:24 | DRG 74 ==
LOC: 3W 19:01 → ED 19:01 → SUATTDRO 21:45 → 3W 22:50 → SUATTDRO 08-20 16:49